=== PATIENT | female | born 1935 | race Caucasian/White ===

== ENCOUNTER 2016-09-03 09:55 | Day surgery (SDC) | payer MEDICARE ==
[~2016-09-03 09:55] MED LIST: PROPOFOL INJ 200 MG/20 ML VIAL IV ONE
[2016-09-03 11:36] VITALS: BP 104/60
--- NOTE | 2016-09-03 12:50 | Operative Report ---
Operative Report DATE OF SURGERY: 09/03/16 Operative Report: The risks, benefits and alternatives of the procedure including risks of bleeding, perforation requiring surgery are explained to the patient detail and informed consent was obtained. Patient was taken back to the endoscopy suite and placed in the left, lateral decubital position. Timeout was called. Propofol medications administered. A rectal examination was done which did not reveal any masses, tears or fissures. An Olympus videoscope was inserted into the patient's rectum. The scope was then carefully advanced all the way to the cecum. The cecum was identified by the usual anatomical landmarks including the ileocecal valve as well as the appendiceal office. Photodocumentation was obtained. The scope was then sequentially pulled back via the rest segments of the colon including the ascending colon, hepatic flexure, transverse colon, splenic flexure, descending colon and finding to the rectosigmoid portions of the colon. Retroflexion maneuver was performed. PREOPERATIVE DIAGNOSIS: Change in bowel habits POSTOPERATIVE DIAGNOSIS: Diverticulosis. Mild right side inflammation status post biopsy. Internal hemorrhoids. No intraluminal lesion, could be extraluminal adhesions. OPERATION: Colonoscopy with biopsy SURGEON: CT BONILLA ANESTHESIA: LMAC TISSUE REMOVED OR ALTERED: Right side colon specimen obtained. Possible lipoma. Biopsies obtained to rule out lymphocytic, microscopic, collagenous colitis. COMPLICATIONS: None. ESTIMATED BLOOD LOSS: None. INTRAOPERATIVE FINDINGS: As described above. PROCEDURE: Patient tolerated the procedure well. No immediate postprocedure complications are noted. Discharge date 09/03/2016. Patient discharged in good condition. Discharge diet: Regular. Discharge activity: Regular. 2-3 week follow-up to discuss findings. Patient is instructed to call the office or proceed to the emergency room should there be any further problems or questions. We will wait on biopsies.
== END 2016-09-03 11:37 | disposition home or self-care (01) ==
LOC: END 09:55
PROVIDERS: ATTEND Internal Medicine Gastroenterology
PROC: 0DBF8ZX Excision of Right Large Intestine, Via Natural or Artificial Opening Endoscopic, Diagnostic (ICD-10-PCS; principal; 2016-09-03 12:30)
DX: K57.30 Diverticulosis of large intestine without perforation or abscess without bleeding (principal); K52.9 Noninfective gastroenteritis and colitis, unspecified; K64.8 Other hemorrhoids; J45.909 Unspecified asthma, uncomplicated; I10 Essential (primary) hypertension; E07.9 Disorder of thyroid, unspecified; Z79.899 Other long term (current) drug therapy; Z79.1 Long term (current) use of non-steroidal anti-inflammatories (NSAID); Z79.51 Long term (current) use of inhaled steroids; Z79.84 Long term (current) use of oral hypoglycemic drugs; Z79.4 Long term (current) use of insulin; Z88.6 Allergy status to analgesic agent; Z88.0 Allergy status to penicillin; Z88.2 Allergy status to sulfonamides
CPT/HCPCS: 45380; 82962; 88305 ×2; J2704; 810

== ENCOUNTER → 2017-01-07 | Outpatient (CLI) | payer MEDICARE ==
--- NOTE | 2017-01-07 11:25 | RADIOLOGY REPORT (SQ) ---
EXAM DESCRIPTION: CT ABD/PELVIS NO ORAL OR IV COMPLETED DATE/TIME: 01/07/2017 11:09 am REASON FOR STUDY: HEMATURIA, UNSPECIFIED/ACUTE RENAL FAILURE R31.9 HEMATURIA, UNSPECIFIED COMPARISON: 10/05/2011 TECHNIQUE: CT scan of the abdomen and pelvis performed without intravenous or oral contrast. Images reviewed with lung, soft tissue, and bone windows. Reconstructed coronal and sagittal MPR images revi ewed. All images stored on PACS. All CT scanners at this facility use dose modulation, iterative reconstruction, and/or weight based d osing when appropriate to reduce radiation dose to as low as reasonably achievable (ALARA). [facility]: Dose Right [facility]: CareDose [facility]: Dose Right [facility]: Teradose 4D [facility]: [employer] RADIATION DOSE: mGy. LIMITATIONS: None. FINDINGS: LOWER CHEST: No acute findings. NON-CONTRASTED LIVER, SPLEEN, ADRENALS: Chronic pneumobilia. PANCREAS: No masses. No peripancreatic inflammatory changes. GALLBLADDER: No identified stones by CT criteria. No inflammatory changes to suggest cholecystitis. RIGHT KIDNEY AND URETER: No suspicious masses. Assessment limited by lack of IV contrast. Small rubén al calculi measuring up to about 2 mm. Vascular calcifications. No hydronephrosis or hydroureter. LEFT KIDNEY AND URETER: No suspicious masses. Assessment limited by lack of IV contrast. Small swapnil l calculi measuring up to about 2 mm. No hydronephrosis or hydroureter. AORTA AND RETROPERITONEUM: No aneurysm. No retroperitoneal masses or adenopathy. BOWEL AND PERITONEAL CAVITY: Diffuse diverticulosis. Anastomosis sigmoid colon. No ascites or free air. No obvious masses or inflammatory changes. No free fluid. APPENDIX: Normal. PELVIS, BLADDER, AND ABDOMINAL WALL:Ace catheter in urinary bladder. Anterior abdominal wall herni a containing nondilated colon. BONES: No acute findings. OTHER: No other significant finding. IMPRESSION: Nonobstructing renal calculi. Stable, chronic findings. COMMENT: Quality ID # [id number]: Final reports with documentation of one or more dose reduction techniques (e.g., Automated exposure control, adjustment of the mA and/or kV according to patient size, use of iterative reconstruction technique) TECHNICAL DOCUMENTATION: JOB ID: [id number] [employer]- All Rights Reserved
== END ==
LOC: RAD 10:54
PROVIDERS: ATTEND Physician Assistant
DX: R31.9 Hematuria, unspecified (principal); N17.9 Acute kidney failure, unspecified
CPT/HCPCS: 74176

== ENCOUNTER → 2017-01-07 | Outpatient (CLI) | payer MEDICARE ==
[2017-01-07 13:07] LABS: ANION GAP 15 (5-19); BLOOD UREA NITROGEN 21 mg/dL (7-20); CALCIUM 9.7 mg/dL (8.4-10.2); CARBON DIOXIDE 23 mmol/L (22-30); CHLORIDE 106 mmol/L (98-107); CREATININE RESULT 1.47 mg/dL (0.52-1.25); GLUCOSE 77 mg/dL (75-110); POTASSIUM 5.7 mmol/L (3.6-5.0); SODIUM 143.6 mmol/L (137-145)
== END ==
LOC: OD 11:46
PROVIDERS: ATTEND Physician Assistant
DX: N17.9 Acute kidney failure, unspecified (principal)
CPT/HCPCS: 36415; 80048

== ENCOUNTER 2017-03-11 11:01 | Inpatient (IN) | payer MEDICARE ==
[~2017-03-11 11:01] MED LIST changes: +CEFTRIAXONE 1 GM/D5W RTU 50 ML IV SCH; -PROPOFOL INJ 200 MG/20 ML VIAL IV ONE
[2017-03-11] MEDS ORDERED: NORMAL SALINE 1000 ML 1,000 ML IV ONE (11:47)
--- NOTE | 2017-03-11 11:47 | ER Document Report ---
ED Medical Screen (RME) - General Chief Complaint: Congestion Stated Complaint: CONGESTION Time Seen by Provider: 03/11/17 11:46 Notes: Patient complains of cough cold congestion dehydration and weakness. TRAVEL OUTSIDE OF THE [place] IN LAST 30 DAYS: No - Related Data Allergies/Adverse Reactions: aspirin [Aspirin] Allergy (Intermediate, Verified 03/11/17 11:01) Facial edema and rash Iodinated Contrast- Oral and IV Dye [IV Dye, Iodine Containing] Allergy (Mild, Verified 03/11/17 11:01) Diarrhea Penicillins Allergy (Mild, Verified 03/11/17 11:01) Diarrhea Shellfish * [Shellfish] Allergy (Mild, Verified 03/11/17 11:01) Diarrhea Beta thaddeus Allergy (Intermediate, Uncoded 03/11/17 11:01) Difficulty breathing Past Medical History - Social History Frequency of alcohol use: None Drug Abuse: None - Past Medical History Cardiac Medical History: Reports: Hx Hypertension Denies: Hx Heart Attack Pulmonary Medical History: Reports: Hx Asthma, Hx COPD Denies: Hx Bronchitis, Hx Pneumonia Neurological Medical History: Denies: Hx Cerebrovascular Accident, Hx Seizures Renal/ Medical History: Denies: Hx Peritoneal Dialysis Musculoskeltal Medical History: Reports Hx Arthritis - GENERALIZED Past Surgical History: Reports: Hx Abdominal Surgery, Hx Hysterectomy, Hx Tonsillectomy, Hx Tubal Ligation - Immunizations Hx Diphtheria, Pertussis, Tetanus Vaccination: Yes Physical Exam - Vital signs Vitals: Temp Pulse Resp BP Pulse Ox 97.2 F 97 16 101/75 95 03/11/17 11:08 03/11/17 11:08 03/11/17 11:08 03/11/17 11:08 03/11/17 11:08 Course - Vital Signs Vital signs: Temp Pulse Resp BP Pulse Ox 97.2 F 97 16 101/75 95 03/11/17 11:08 03/11/17 11:08 03/11/17 11:08 03/11/17 11:08 03/11/17 11:08
[2017-03-11 13:06] LABS: VENOUS BLOOD BASE EXCESS -2.3 mmol/L; VENOUS BLOOD HCO3 24.2 mmol/L (20-32); VENOUS BLOOD PCO2 47.8 mmHg (35-63); VENOUS BLOOD PH 7.32 (7.30-7.42)
[2017-03-11 13:09] LABS: ABSOLUTE BASOPHILS # (AUTO) 0.1 10^3/uL (0.0-0.2); ABSOLUTE EOSINOPHILS # (AUTO) 0.1 10^3/uL (0.0-0.6); ABSOLUTE LYMPHOCYTES (AUTO) 1.8 10^3/uL (0.5-4.7); ABSOLUTE MONOCYTES (AUTO) 0.6 10^3/uL (0.1-1.4); ABSOLUTE NEUT (AUTO) 5.2 10^3/uL (1.7-8.2); BASOPHILS % (AUTO) 0.8 % (0-2); EOSINOPHILS % (AUTO) 0.8 % (0-6); HEMATOCRIT 45.4 % (36.0-47.0); HEMOGLOBIN 14.9 g/dL (12.0-15.5); LYMPHOCYTES % (AUTO) 23.8 % (13-45); MEAN CORPUSCULAR HGB CONC 32.8 g/dL (32.0-36.0); MEAN CORPUSCULAR VOLUME 85 fl (80-97); MONOCYTES % (AUTO) 7.2 % (3-13); PLATELET COUNT 358 10^3/uL (150-450); RED BLOOD COUNT 5.32 10^6/uL (3.72-5.28); RED CELL DISTRIBUTION WIDTH 15.1 % (11.5-14.0); SEGMENTED NEUTROPHILS % (AUTO) 67.4 % (42-78); TOTAL CELLS COUNTED % (AUTO) 100 %; WHITE BLOOD COUNT 7.7 10^3/uL (4.0-10.5)
[2017-03-11 13:14] LABS: APPEARANCE,URINE SLIGHTLY-CLOUDY; BILIRUBIN,URINE SMALL (NEGATIVE); COLOR,URINE YELLOW; GLUCOSE, URINE NEGATIVE (NEGATIVE); KETONES,URINE NEGATIVE (NEGATIVE); LEUKOCYTE ESTERASE,URINE LARGE (NEGATIVE); NITRITE,URINE NEGATIVE (NEGATIVE); PROTEIN,URINE 30 mg/dL (NEGATIVE); URINE SPECIFIC GRAVITY 1.025; UROBILINOGEN,URINE NEGATIVE mg/dL (<2.0)
--- NOTE | 2017-03-11 13:49 | RADIOLOGY REPORT (SQ) ---
EXAM DESCRIPTION: CHEST PA/LAT COMPLETED DATE/TIME: 03/11/2017 1:21 pm REASON FOR STUDY: cough COMPARISON: 05/11/2009 EXAM PARAMETERS: NUMBER OF VIEWS: two views TECHNIQUE: Digital Frontal and Lateral radiographic views of the chest acquired. RADIATION DOSE: NA LIMITATIONS: none FINDINGS: LUNGS AND PLEURA: No opacities, masses or pneumothorax. No pleural effusion. MEDIASTINUM AND HILAR STRUCTURES: No masses or contour abnormalities. HEART AND VASCULAR STRUCTURES: Heart normal size. No evidence for failure. BONES: No acute findings. HARDWARE: None in the chest. OTHER: No other significant finding. IMPRESSION: NO SIGNIFICANT RADIOGRAPHIC FINDING IN THE CHEST. TECHNICAL DOCUMENTATION: JOB ID: [id number] [employer]- All Rights Reserved
[2017-03-11] MEDS ORDERED: IPRATROPIUM/ALBUTEROL 0.5-2.5 MG/3 ML AMPUL NEB ONE (14:31)
[2017-03-11] MEDS ORDERED: METHYLPREDNISOLONE INJ 125 MG/2 ML SDV IV ONE (14:31)
--- NOTE | 2017-03-11 14:34 | ER Document Report ---
ED General - General Chief Complaint: Congestion Stated Complaint: CONGESTION Time Seen by Provider: 03/11/17 11:46 Mode of Arrival: Ambulatory Information source: Patient Notes: 82-year-old female presents with complaints of shortness of breath generalized weakness cough intermittently productive of 4 day duration. Patient notes she has not been eating at all. She states she feels extremely dehydrated and weak. Patient notes it hurts when she coughs on her chest and her back but otherwise does not hurt TRAVEL OUTSIDE OF THE [place] IN LAST 30 DAYS: No - HPI Onset: Last week Onset/Duration: Persistent Quality of pain: Achy Severity: Mild Pain Level: 1 Associated symptoms: Body/muscle aches, Nonproductive cough, Shortness of breath Exacerbated by: Denies Relieved by: Denies Similar symptoms previously: No Recently seen / treated by doctor: No - Related Data Allergies/Adverse Reactions: aspirin [Aspirin] Allergy (Intermediate, Verified 03/11/17 11:01) Facial edema and rash Iodinated Contrast- Oral and IV Dye [IV Dye, Iodine Containing] Allergy (Mild, Verified 03/11/17 11:01) Diarrhea Penicillins Allergy (Mild, Verified 03/11/17 11:01) Diarrhea Shellfish * [Shellfish] Allergy (Mild, Verified 03/11/17 11:01) Diarrhea Beta thaddeus Allergy (Intermediate, Uncoded 03/11/17 11:01) Difficulty breathing Past Medical History - Social History Smoking Status: Former Smoker - Smoking 30 years ago Cigarette use (# per day): No Chew tobacco use (# tins/day): No Smoking Education Provided: No Frequency of alcohol use: None Drug Abuse: None Family History: Reviewed & Not Pertinent Patient has suicidal ideation: No Patient has homicidal ideation: No - Past Medical History Cardiac Medical History: Reports: Hx Hypertension Denies: Hx Heart Attack Pulmonary Medical History: Reports: Hx Asthma, Hx COPD Denies: Hx Bronchitis, Hx Pneumonia Neurological Medical History: Denies: Hx Cerebrovascular Accident, Hx Seizures Renal/ Medical History: Denies: Hx Peritoneal Dialysis Musculoskeltal Medical History: Reports Hx Arthritis - GENERALIZED Past Surgical History: Reports: Hx Abdominal Surgery, Hx Hysterectomy, Hx Tonsillectomy, Hx Tubal Ligation - Immunizations Hx Diphtheria, Pertussis, Tetanus Vaccination: Yes Review of Systems - Review of Systems Notes: REVIEW OF SYSTEMS: CONSTITUTIONAL : Denies fever, chills, or sweats. Denies recent illness. EENT: Denies eye, ear, throat, or mouth pain or symptoms. Denies nasal or sinus congestion or discharge. Denies throat, tongue, or mouth swelling or difficulty swallowing. CARDIOVASCULAR: Admits chest wall pain RESPIRATORY: Admits to cough GASTROINTESTINAL: Denies abdominal pain or distention. Denies nausea, vomiting , or diarrhea. Denies blood in vomitus, stools, or per rectum. Denies black, tarry stools. Denies constipation. GENITOURINARY: Denies difficulty urinating, painful urination, burning, frequency, blood in urine, or discharge. FEMALE GENITOURINARY: Denies vaginal bleeding, heavy or abnormal periods, irregular periods. Denies vaginal discharge or odor. MUSCULOSKELETAL: Denies back or neck pain or stiffness. Denies joint pain or swelling. SKIN: Denies rash, lesions or sores. HEMATOLOGIC : Denies easy bruising or bleeding. LYMPHATIC: Denies swollen, enlarged glands. NEUROLOGICAL: Denies confusion or altered mental status. Denies passing out or loss of consciousness. Denies dizziness or lightheadedness. Denies headache. Denies weakness or paralysis or loss of use of either side. Denies problems with gait or speech. Denies sensory loss, numbness, or tingling. Denies seizures. PSYCHIATRIC: Denies anxiety or stress. Denies depression, suicidal ideation, or homicidal ideation. ALL OTHER SYSTEMS REVIEWED AND NEGATIVE. PHYSICAL EXAMINATION: GENERAL: Well-appearing, well-nourished and in no acute distress. HEAD: Atraumatic, normocephalic. EYES: Pupils equal round and reactive to light, extraocular movements intact, conjunctiva are normal. ENT: Nares patent, oropharynx clear without exudates. Moist mucous membranes. NECK: Normal range of motion, supple without lymphadenopathy LUNGS: Breath sounds clear to auscultation bilaterally and equal. No wheezes rales or rhonchi. HEART: Regular rate and rhythm without murmurs ABDOMEN: Soft, nontender, nondistended abdomen. No guarding, no rebound. No masses appreciated. Female : deferred Musculoskeletal: Normal range of motion, no pitting or edema. No cyanosis. NEUROLOGICAL: Cranial nerves grossly intact. Normal speech, normal gait. Normal sensory, motor exams PSYCH: Normal mood, normal affect. SKIN: Warm, Dry, normal turgor, no rashes or lesions noted. Dictation was performed using [employer] voice recognition software Physical Exam - Vital signs Vitals: Temp Pulse Resp BP Pulse Ox 97.2 F 97 16 101/75 95 03/11/17 11:08 03/11/17 11:08 03/11/17 11:08 03/11/17 11:08 03/11/17 11:08 Course - Re-evaluation Re-evalutation: 03/11/17 18:42 Patient's evaluation is concerning for asthma exacerbation with some type of viral syndrome, unfortunately the patient has not been eating or drinking well and appears to be dehydrated, creatinine is noted to be elevated, patient was started on IV fluids. Given her dehydration status I will admit the patient for IV fluids - Vital Signs Vital signs: Temp Pulse Resp BP Pulse Ox 97.2 F 97 16 101/75 95 03/11/17 11:08 03/11/17 11:08 03/11/17 11:08 03/11/17 11:08 03/11/17 11:08 - Laboratory Result Diagrams: 03/11/17 12:30 03/11/17 14:32 Laboratory results interpreted by me: 03/11/17 03/11/17 03/11/17 12:30 12:30 14:32 RBC 5.32 H RDW 15.1 H Carbon Dioxide 19 L BUN 45 H Creatinine 2.36 H Est GFR ( Amer) 24 L Est GFR (Non-Af Amer) 20 L Glucose 128 H Direct Bilirubin 0.5 H AST 38 H Urine Protein 30 H Urine Bilirubin SMALL H Ur Leukocyte Esterase LARGE H - Diagnostic Test Radiology reviewed: Image reviewed, Reports reviewed Critical Care Note - Critical Care Note Total time excluding time spent on procedures (mins): 34 Comments: 34 minutes of critical care time spent in direct contact evaluating and reevaluating the patient, treating symptoms, reviewing labs and studies and speaking with family and consultants excluding any procedures Discharge - Discharge Clinical Impression: Dehydration Asthma exacerbation Qualifiers: Asthma severity: moderate Asthma persistence: unspecified Qualified Code(s): J45.901 - Unspecified asthma with (acute) exacerbation UTI (urinary tract infection) Qualifiers: Urinary tract infection type: acute cystitis Hematuria presence: with hematuria Qualified Code(s): N30.01 - Acute cystitis with hematuria Condition: Stable Disposition: ADMITTED OBSERVATION Admitting Provider: Hospitalist Unit Admitted: Telemetry
[2017-03-11] MEDS ORDERED: HYDROCODONE BIT/HOMATROPINE SYRUP 5 ML UDCUP PO ONE (14:35)
[2017-03-11 15:10] LABS: ALANINE AMINOTRANSFERASE 29 U/L (9-52); ALBUMIN 4.6 g/dL (3.5-5.0); ALKALINE PHOSPHATASE 70 U/L (38-126); ANION GAP 17 (5-19); ASPARTATE AMINO TRANSFERASE 38 U/L (14-36); BILIRUBIN,DIRECT 0.5 mg/dL (0.0-0.4); BILIRUBIN,TOTAL 0.7 mg/dL (0.2-1.3); BLOOD UREA NITROGEN 45 mg/dL (7-20); CALCIUM 9.2 mg/dL (8.4-10.2); CARBON DIOXIDE 19 mmol/L (22-30); CHLORIDE 104 mmol/L (98-107); GLUCOSE 128 mg/dL (75-110); POTASSIUM 4.9 mmol/L (3.6-5.0); SODIUM 139.9 mmol/L (137-145); TOTAL PROTEIN 7.9 g/dL (6.3-8.2)
[2017-03-11] MEDS ORDERED: HYDROCODONE BIT/HOMATROPINE 5-1.5 MG TABLET PO ONE (15:17)
[2017-03-11 15:22] LABS: A TYPE INFLUENZA AG NEGATIVE (NEGATIVE); B INFLUENZA AG NEGATIVE (NEGATIVE)
[2017-03-11] MEDS ORDERED: NORMAL SALINE 1000 ML 1,000 ML IV PRN (15:23)
[2017-03-11] MEDS ORDERED: CIPROFLOXACIN 200 MG/D5W RTU 200 MG/100 ML RTUPB IV SCH (16:00)
[2017-03-11] MEDS ORDERED: ACETAMINOPHEN 325 MG TABLET PO PRN (18:14)
[2017-03-11] MEDS ORDERED: DEXTROSE 50%-WATER 25 GM/50 ML DISP.SYRIN IV PRN ×2 (18:21)
[2017-03-11] MEDS ORDERED: GLUCAGON,HUMAN RECOMB 1 MG INJ IM PRN (18:21)
[2017-03-11] MEDS ORDERED: DEXTROSE 40% GEL 15 GM TUBE PO PRN ×2 (18:21)
[2017-03-11] MEDS ORDERED: INSULIN LISPRO 100 UNIT/ML 3 ML VIAL SUBCUT PRN (18:21)
[2017-03-11] MEDS ORDERED: HYDRALAZINE HCL INJ/PF 20 MG/1 ML SDV IV PRN (18:35)
--- NOTE | 2017-03-11 18:35 | EKG REPORT ---
SEVERITY:- BORDERLINE ECG - SINUS RHYTHM PROBABLE LEFT ATRIAL ABNORMALITY : Confirmed by: Kendra Bear 11-Mar-2017 18:34:29
--- NOTE | 2017-03-11 18:38 | PDOC H&P ---
History of Present Illness Admission Date/PCP: 03/11/17 16:48 biometrics head: Dr Proctor History of Present Illness: URMILA GALEANO is a 82 year old female Past Medical History Cardiac Medical History: Reports: Hypertension Denies: Myocardial Infarction Pulmonary Medical History: Reports: Asthma, Chronic Obstructive Pulmonary Disease (COPD) Denies: Bronchitis, Pneumonia Neurological Medical History: Denies: Seizures Endocrine Medical History: Reports: Diabetes Mellitus Type 2, Hypothyroidism Malignancy Medical History: Reports: None Musculoskeltal Medical History: Reports: Arthritis - GENERALIZED Psychiatric Medical History: Reports: None Traumatic Medical History: Reports: None Hematology: Denies: Anemia Past Surgical History Past Surgical History: Reports: Appendectomy, Hysterectomy, Tonsillectomy, Tubal Ligation, Other - sigmoid colectomy Social History Information Source: Patient Smoking Status: Former Smoker Frequency of Alcohol Use: None Hx Recreational Drug Use: No Drugs: None Hx Prescription Drug Abuse: No Family History Family History: Reviewed & Not Pertinent Parental Family History Reviewed: Yes Children Family History Reviewed: Yes Sibling(s) Family History Reviewed.: Yes Medication/Allergy Allergies/Adverse Reactions: aspirin [Aspirin] Allergy (Intermediate, Verified 03/11/17 11:01) Facial edema and rash Iodinated Contrast- Oral and IV Dye [IV Dye, Iodine Containing] Allergy (Mild, Verified 03/11/17 11:01) Diarrhea Penicillins Allergy (Mild, Verified 03/11/17 11:01) Diarrhea Shellfish * [Shellfish] Allergy (Mild, Verified 03/11/17 11:01) Diarrhea Beta thaddeus Allergy (Intermediate, Uncoded 03/11/17 11:01) Difficulty breathing Review of Systems Constitutional: PRESENT: anorexia, weakness Eyes: ABSENT: visual disturbances Ears: ABSENT: hearing changes Nose, Mouth, and Throat: PRESENT: headache(s), sore throat Cardiovascular: ABSENT: chest pain, dyspnea on exertion, orthropnea, palpitations Respiratory: PRESENT: cough, dyspnea. ABSENT: sputum Gastrointestinal: ABSENT: abdominal pain, constipation, nausea, vomiting Genitourinary: PRESENT: dysuria. ABSENT: difficulty urinating, hematuria Musculoskeletal: ABSENT: back pain Integumentary: ABSENT: diaphoresis, lesions, pruritus, rash Neurological: ABSENT: abnormal gait, abnormal speech, confusion Psychiatric: ABSENT: anxiety, depression, homidical ideation, suicidal ideation Endocrine: ABSENT: cold intolerance, heat intolerance, polyphagia, polyuria Hematologic/Lymphatic: ABSENT: easy bleeding, easy bruising, lymphadenopathy Allergic/Immunologic: PRESENT: seasonal rhinorrhea Physical Exam Vital Signs: Temp Pulse Resp BP Pulse Ox 97.2 F 97 16 101/75 95 03/11/17 11:08 03/11/17 11:08 03/11/17 11:08 03/11/17 11:08 03/11/17 11:08 General appearance: PRESENT: no acute distress, well-developed, well-nourished Head exam: PRESENT: atraumatic, normocephalic Eye exam: PRESENT: conjunctiva pink, EOMI, PERRLA. ABSENT: scleral icterus Ear exam: PRESENT: normal external ear exam Mouth exam: PRESENT: moist, tongue midline Throat exam: PRESENT: post pharyngeal erythema. ABSENT: tonsillar erythema, tonsillar exudate Neck exam: ABSENT: carotid bruit, JVD, lymphadenopathy, thyromegaly Respiratory exam: PRESENT: wheezes - Mild wheezing throughout all lung [place] Cardiovascular exam: PRESENT: RRR. ABSENT: diastolic murmur, rubs, systolic murmur Pulses: PRESENT: normal dorsalis pedis pul GI/Abdominal exam: PRESENT: normal bowel sounds, soft. ABSENT: distended, guarding, mass, organolmegaly, rebound, tenderness Rectal exam: PRESENT: deferred Extremities exam: PRESENT: full ROM. ABSENT: calf tenderness, clubbing, pedal edema Neurological exam: PRESENT: alert, awake, oriented to person, oriented to place , oriented to time, oriented to situation, CN II-XII grossly intact. ABSENT: motor sensory deficit Psychiatric exam: PRESENT: appropriate affect, normal mood. ABSENT: homicidal ideation, suicidal ideation Skin exam: PRESENT: dry, intact, warm. ABSENT: cyanosis, rash Results Impressions: Chest X-Ray 03/11/17 11:47 IMPRESSION: NO SIGNIFICANT RADIOGRAPHIC FINDING IN THE CHEST. Assessment & Plan - Diagnosis (1) Acute renal failure Plan: Secondary to dehydration and poor p.o. intake. The patient will continue normal saline tonight. She will have a chemistry panel checked in the morning. Her baseline creatinine per last time she was checked at this facility in December was 1.4. Currently 2.36 (2) UTI (urinary tract infection) Is this a current diagnosis for this admission?: Yes Plan: Urine culture is pending. She has been started on IV ceftriaxone. (3) Asthma exacerbation Is this a current diagnosis for this admission?: Yes Plan: The patient has improved with breathing treatments in the emergency room. She is not requiring oxygen supplementation. Will place the patient on p.o. prednisone and breathing treatments. She will be started on IV Rocephin and Zithromax as she states she has had a cough and has felt sick for the past 2 weeks. (4) Diabetes mellitus Is this a current diagnosis for this admission?: Yes Plan: Was radiculitis she will be covered with sliding scale insulin during this hospitalization (5) Metabolic acidosis Is this a current diagnosis for this admission?: Yes Plan: Likely due to urinary tract infection. She will have a chemistry panel drawn in the morning. This is quite mild (6) Hypertension Plan: She gave her list of medications to the nurse who is not placed in the computer yet. At this point she does not require any blood pressure medication as her blood pressure is on the low side. Her medications will need to be reconciled in the morning. She will have IV hydralazine available in the event that she develops severe hypertension. (7) Hyperlipidemia Is this a current diagnosis for this admission?: Yes Plan: Her medications will need to be reconciled in the morning. (8) Hypothyroidism Is this a current diagnosis for this admission?: Yes Plan: As above - Time Time Spent: 50 to 70 Minutes - Inpatient Certification Medical Necessity: Need For IV Fluids, Need for IV Antibiotics - The patient will be placed in observation in the hospital. I believe her kidney function could possibly recover after receiving IV fluids overnight. She currently is not hypoxic and likely could be discharged home on oral therapies for her COPD exacerbation and urinary tract infection. She will need to be reevaluated in the morning and certainly could be changed to a full admission if anything changes.
[2017-03-11] MEDS: IPRATROPIUM/ALBUTEROL 0.5-2.5 MG/3 ML AMPUL NEB SCH (20:59)
[2017-03-11] MEDS: CEFTRIAXONE SODIUM 1,000 MG in DEXTROSE 5%-WATER 50 ML IV SCH (23:30)
[2017-03-11] MEDS ORDERED: CEFTRIAXONE INJ 1000 MG VIAL ONE (23:32)
[2017-03-11] MEDS: GUAIFENESIN 600 MG TABLET.SA PO SCH (23:49)
[2017-03-11] MEDS: NORMAL SALINE 1000 ML 1,000 ML IV PRN (23:49)
[2017-03-12 04:43] LABS: HEMATOCRIT 33.5 % (36.0-47.0); MEAN CORPUSCULAR HEMOGLOBIN 27.9 pg (27.0-33.4); MEAN CORPUSCULAR HGB CONC 33.2 g/dL (32.0-36.0); MEAN CORPUSCULAR VOLUME 84 fl (80-97); PLATELET COUNT 247 10^3/uL (150-450); RED BLOOD COUNT 3.98 10^6/uL (3.72-5.28); RED CELL DISTRIBUTION WIDTH 14.6 % (11.5-14.0); WHITE BLOOD COUNT 13.2 10^3/uL (4.0-10.5)
[2017-03-12 05:00] LABS: ANION GAP 11 (5-19); BLOOD UREA NITROGEN 32 mg/dL (7-20); CALCIUM 8.5 mg/dL (8.4-10.2); CARBON DIOXIDE 20 mmol/L (22-30); CHLORIDE 108 mmol/L (98-107); GLUCOSE 131 mg/dL (75-110); HEMOGLOBIN 11.1 g/dL (12.0-15.5); PHOSPHORUS 3.1 mg/dL (2.5-4.5); POTASSIUM 5.1 mmol/L (3.6-5.0); SODIUM 138.9 mmol/L (137-145)
[2017-03-12] MEDS: IPRATROPIUM/ALBUTEROL 0.5-2.5 MG/3 ML AMPUL NEB SCH ×3 (08:23→20:17)
[2017-03-12] MEDS ORDERED: BENZONATATE 100 MG CAPSULE PO PRN (11:02)
[2017-03-12] MEDS ORDERED: PROMETHAZINE HCL 25 MG TABLET PO PRN (11:03)
[2017-03-12] MEDS: LACTOBACILLUS ACIDOPHILUS 250 MG TAB PO SCH ×2 (11:39→18:27)
[2017-03-12] MEDS: GUAIFENESIN 600 MG TABLET.SA PO SCH ×2 (11:39→21:28)
[2017-03-12] MEDS: PREDNISONE 20 MG TABLET PO SCH (11:40)
[2017-03-12] MEDS: ENOXAPARIN SODIUM INJ 30 MG/0.3 ML DISP.SYRIN SUBCUT SCH (11:41)
[2017-03-12] MEDS: NORMAL SALINE 1000 ML 1,000 ML IV PRN (11:42)
[2017-03-12] MEDS: ACETAMINOPHEN WITH CODEINE #3 TABLET PO PRN (12:20)
--- NOTE | 2017-03-12 13:55 | PDOC PROGRESS REPORT ---
Subjective Progress Note for:: 03/12/17 Subjective:: Patient reports feeling better but still having chest congestion and cough. Patient refers that feels like she is having a pneumonia Review of systems All organ systems evaluated and negative except as in subjective All laboratories and significant diagnostics have been reviewed Reason For Visit: ASTHMA EXACERBATION,ACUTE KIDNEY INJURY Physical Exam Vital Signs: Temp Pulse Resp BP Pulse Ox 97.2 F 110 H 20 101/75 91 L 03/11/17 11:08 03/11/17 21:00 03/11/17 21:00 03/11/17 11:08 03/11/17 21:00 General appearance: PRESENT: no acute distress, cooperative, obese - Emergency Head exam: PRESENT: atraumatic, normocephalic Eye exam: PRESENT: conjunctiva pink, EOMI, PERRLA Ear exam: PRESENT: normal external ear exam Mouth exam: PRESENT: moist - But they do not, neck supple Neck exam: PRESENT: full ROM. ABSENT: JVD Respiratory exam: PRESENT: crackles - Left lower lobe, unlabored. ABSENT: tachypnea Cardiovascular exam: PRESENT: RRR. ABSENT: diastolic murmur, systolic murmur Vascular exam: PRESENT: normal capillary refill GI/Abdominal exam: PRESENT: normal bowel sounds, soft. ABSENT: guarding, tenderness Extremities exam: PRESENT: full ROM. ABSENT: joint swelling, pedal edema Musculoskeletal exam: PRESENT: full ROM Neurological exam: PRESENT: alert, awake, oriented to person, oriented to place , oriented to time, CN II-XII grossly intact Psychiatric exam: PRESENT: appropriate affect, normal mood Skin exam: PRESENT: intact, normal color Results Laboratory Results: 03/12/17 04:30 03/12/17 04:30 03/12/17 03/12/17 04:30 04:30 WBC 13.2 H RBC 3.98 Hgb 11.1 L D Hct 33.5 L MCV 84 MCH 27.9 MCHC 33.2 RDW 14.6 H Plt Count 247 Sodium 138.9 Potassium 5.1 H Chloride 108 H Carbon Dioxide 20 L Anion Gap 11 BUN 32 H Creatinine 1.61 H Est GFR ( Amer) 37 L Est GFR (Non-Af Amer) 31 L Glucose 131 H Calcium 8.5 Phosphorus 3.1 Magnesium 2.0 Impressions: Chest X-Ray 03/11/17 11:47 IMPRESSION: NO SIGNIFICANT RADIOGRAPHIC FINDING IN THE CHEST. Assessment & Plan - Diagnosis (1) Acute renal failure Qualifiers: Acute renal failure type: unspecified Qualified Code(s): N17.9 - Acute kidney failure, unspecified Is this a current diagnosis for this admission?: Yes Plan: Likely due to volume contrast contraction. Continue IV fluids and trend. Improved since admission (2) Asthma exacerbation Qualifiers: Asthma severity: moderate Asthma persistence: unspecified Qualified Code( s): J45.901 - Unspecified asthma with (acute) exacerbation Is this a current diagnosis for this admission?: Yes Plan: Continue current management and antitussive. To repeat chest x-ray since concern about the possibility of pneumonia (4) Diabetes mellitus Qualifiers: Diabetes mellitus type: type 2 Diabetes mellitus complication status: with unspecified complications Diabetes mellitus terminal system operator insulin use: without terminal system operator use Qualified Code(s): E11.8 - Type 2 diabetes mellitus with unspecified complications Is this a current diagnosis for this admission?: Yes Plan: Continue current management (5) Metabolic acidosis Is this a current diagnosis for this admission?: Yes (6) UTI (urinary tract infection) Qualifiers: Urinary tract infection type: acute cystitis Hematuria presence: with hematuria Qualified Code(s): N30.01 - Acute cystitis with hematuria Is this a current diagnosis for this admission?: Yes Plan: Will continue current management but expect to discontinue if urine culture negative (7) Hyperkalemia Is this a current diagnosis for this admission?: Yes Plan: May relate to traumatic blood draw. Will trend for now. (8) Anemia Qualifiers: Anemia type: unspecified type Qualified Code(s): D64.9 - Anemia, unspecified Is this a current diagnosis for this admission?: Yes Plan: Order anemia panel. - Time Time Spent with patient: 15-24 minutes Medications reviewed and adjusted accordingly: Yes Anticipated discharge: Home Within: within 48 hours - Inpatient Certification Based on my medical assessment, after consideration of the patient's comorbidities, presenting symptoms, or acuity I expect that the services needed warrant INPATIENT care.: Yes I certify that my determination is in accordance with my understanding of Medicare's requirements for reasonable and necessary INPATIENT services [42 CFR 412.3e].: Yes Medical Necessity: Need Close Monitoring Due to Risk of Patient Decompensation, Need For IV Fluids, Need for IV Antibiotics
--- NOTE | 2017-03-12 15:39 | RADIOLOGY REPORT (SQ) ---
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 Images reviewed with lung, soft tissue and bone windows. Reconstructed coronal and sagittal MPR images reviewed. All images st ored on PACS. All CT scanners at this facility use dose modulation, iterative reconstruction, and/or weight based d osing when appropriate to reduce radiation dose to as low as reasonably achievable (ALARA). [facility]: Dose Right [facility]: CareDose [facility]: Dose Right [facility]: Teradose 4D [facility]: [employer] RADIATION DOSE: CT Rad equipment meets quality standard of care and radiation dose reduction techniq ues were employed. CTDIvol: 7.7 mGy. DLP: 285 mGy-cm. mGy. LIMITATIONS: No technical limitations. FINDINGS: LUNGS AND PLEURA: There is minimal airspace disease in the posterior aspect of the right m iddle lobe best shown on coronal image 52. There is minimal airspace disease in the right posterior lower lobe, best shown on coronal image 79. There is trace airspace disease the left posterior costophrenic sulcus. No pulmonary nodules. No pleural effusion. No pneumothorax. HILAR AND MEDIASTINAL STRUCTURES: No identified masses or abnormal nodes. No obvious aneurysm. HEART AND VASCULAR STRUCTURES: No aneurysm. No pericardial effusion. Heavy atherosclerotic coronary artery calcifications. Heavily calcified aortic valve leaflets. UPPER ABDOMEN: Air in the nondependent portion of the left lobe liver from sphincterotomy. THYROID AND OTHER SOFT TISSUES: No masses. No adenopathy. BONES: No significant finding. HARDWARE: None in the chest. OTHER: No other significant findings. IMPRESSION: Minimal patchy airspace disease in the posterior aspect right middle lobe, and dependent portions of the right and left lungs. Differential is atelectasis versus pneumonia Heavily calcified aortic valve and coronary artery calcifications. TECHNICAL DOCUMENTATION: JOB ID: [id number] Quality ID # [id number]: Final reports with documentation of one or more dose reduction techniques (e.g., Au tomated exposure control, adjustment of the mA and/or kV according to patient size, use of iterative reconstruction technique) 2010 [employer]- All Rights Reserved
[2017-03-12] MEDS: CEFTRIAXONE SODIUM 1,000 MG in DEXTROSE 5%-WATER 50 ML IV SCH (21:30)
[2017-03-12] MEDS: TEMAZEPAM 7.5 MG CAPSULE PO PRN (21:33)
[2017-03-12] MEDS ORDERED: AZITHROMYCIN 500 MG in DEXTROSE 5%-WATER 250 ML IV SCH (22:00)
[2017-03-13 05:32] LABS: ABSOLUTE RETICS # 0.037 10^6/uL (0.028-0.122); RETICULOCYTE COUNT (AUTO) 1.01 % (0.66-2.85)
[2017-03-13 05:58] LABS: IRON(TIBC) 15.2 ug/dL (37-170)
[2017-03-13 07:05] LABS: FOLATE 5.94 ng/mL (>2.76)
[2017-03-13] MEDS: IPRATROPIUM/ALBUTEROL 0.5-2.5 MG/3 ML AMPUL NEB SCH ×2 (08:53→13:56)
[2017-03-13] MEDS: ENOXAPARIN SODIUM INJ 30 MG/0.3 ML DISP.SYRIN SUBCUT SCH (09:12)
[2017-03-13] MEDS: GUAIFENESIN 600 MG TABLET.SA PO SCH ×2 (09:15→21:14)
[2017-03-13] MEDS: PREDNISONE 20 MG TABLET PO SCH ×2 (09:15→09:44)
[2017-03-13] MEDS: LACTOBACILLUS ACIDOPHILUS 250 MG TAB PO SCH ×2 (09:15→16:41)
[2017-03-13] MEDS: GLIPIZIDE 5 MG TABLET PO SCH (09:15)
[2017-03-13] MEDS: AZITHROMYCIN 250 MG TABLET PO SCH (10:06)
[2017-03-13] MEDS: ACETAMINOPHEN WITH CODEINE #3 TABLET PO PRN ×3 (10:06→21:14)
[2017-03-13] MEDS: NORMAL SALINE 1000 ML 1,000 ML IV PRN (10:06)
--- NOTE | 2017-03-13 16:28 | PDOC PROGRESS REPORT ---
Subjective Progress Note for:: 03/13/17 Subjective:: Patient reports that feels like was run over a truck however feels better Review of systems All organ systems evaluated and negative except as in subjective All laboratories and significant diagnostics have been reviewed Reason For Visit: ASTHMA EXACERBATION CONNIE Physical Exam Vital Signs: Temp Pulse Resp BP Pulse Ox 97.6 F 92 16 110/64 93 03/12/17 23:33 03/12/17 23:33 03/12/17 23:33 03/12/17 23:33 03/12/17 23:33 Intake & Output 03/12/17 03/13/17 03/14/17 06:59 06:59 06:59 Intake Total 240 Balance 240 Weight 77.3 kg General appearance: PRESENT: no acute distress, cooperative, well-developed, well-nourished Head exam: PRESENT: atraumatic, normocephalic Eye exam: PRESENT: conjunctiva pink, EOMI, PERRLA Mouth exam: PRESENT: moist, neck supple Neck exam: PRESENT: full ROM. ABSENT: JVD, lymphadenopathy, tenderness - Soft left-sided crackles Respiratory exam: ABSENT: chest wall tenderness Cardiovascular exam: PRESENT: RRR. ABSENT: diastolic murmur, systolic murmur Vascular exam: PRESENT: normal capillary refill GI/Abdominal exam: PRESENT: normal bowel sounds, soft. ABSENT: tenderness Extremities exam: ABSENT: clubbing, full ROM, joint swelling, pedal edema Musculoskeletal exam: PRESENT: ambulatory Neurological exam: PRESENT: alert, oriented to person, oriented to place, oriented to time, oriented to situation, CN II-XII grossly intact Psychiatric exam: PRESENT: appropriate affect, normal mood Skin exam: PRESENT: intact, normal color Results Laboratory Results: 03/12/17 04:30 03/12/17 04:30 03/13/17 03/13/17 04:48 04:48 Retic Count (auto) 1.01 Absolute Retic 0.037 Iron 15.2 L TIBC 323 % Saturation 5 Ferritin 71.30 Vitamin B12 298.0 Folate 5.94 Impressions: Chest X-Ray 03/11/17 11:47 IMPRESSION: NO SIGNIFICANT RADIOGRAPHIC FINDING IN THE CHEST. Chest CT 03/12/17 00:00 IMPRESSION: Minimal patchy airspace disease in the posterior aspect right middle lobe, and dependent portions of the right and left lungs. Differential is atelectasis versus pneumonia Heavily calcified aortic valve and coronary artery calcifications. Assessment & Plan - Diagnosis (1) Acute renal failure Qualifiers: Acute renal failure type: unspecified Qualified Code(s): N17.9 - Acute kidney failure, unspecified Is this a current diagnosis for this admission?: Yes Plan: Likely due to volume contrast contraction. Discontinue IV fluids and trend (2) Asthma exacerbation Qualifiers: Asthma severity: moderate Asthma persistence: unspecified Qualified Code( s): J45.901 - Unspecified asthma with (acute) exacerbation Is this a current diagnosis for this admission?: Yes Plan: Improved. Discontinue prednisone. To place patient on Advair (3) Dehydration Is this a current diagnosis for this admission?: Yes Plan: Improved (4) Diabetes mellitus Qualifiers: Diabetes mellitus type: type 2 Diabetes mellitus complication status: with unspecified complications Diabetes mellitus medical terminologist insulin use: without medical terminologist use Qualified Code(s): E11.8 - Type 2 diabetes mellitus with unspecified complications Is this a current diagnosis for this admission?: Yes Plan: Continue current management. Patient requested to be restarted on her outpatient regimen (5) Metabolic acidosis Is this a current diagnosis for this admission?: Yes Plan: Will follow-up BMP in a.m. (6) UTI (urinary tract infection) Qualifiers: Urinary tract infection type: acute cystitis Hematuria presence: with hematuria Qualified Code(s): N30.01 - Acute cystitis with hematuria Is this a current diagnosis for this admission?: Yes Plan: Sofar culture preliminary report is negative and will discontinue Rocephin since presentation less likely to be due to urinary tract infection (7) Hyperkalemia Is this a current diagnosis for this admission?: Yes Plan: Will check BMP in AM (8) Anemia Qualifiers: Anemia type: unspecified type Qualified Code(s): D64.9 - Anemia, unspecified Is this a current diagnosis for this admission?: Yes Plan: More consistent with anemia of chronic disease - Time Time Spent with patient: 15-24 minutes Medications reviewed and adjusted accordingly: Yes Anticipated discharge: Home Within: within 24 hours - Inpatient Certification Based on my medical assessment, after consideration of the patient's comorbidities, presenting symptoms, or acuity I expect that the services needed warrant INPATIENT care.: Yes I certify that my determination is in accordance with my understanding of Medicare's requirements for reasonable and necessary INPATIENT services [42 CFR 412.3e].: Yes Medical Necessity: Need Close Monitoring Due to Risk of Patient Decompensation
[2017-03-13] MEDS: FLUTICASONE/SALMETEROL DISKUS 250-50 MCG/DOSE IH SCH (21:15)
[2017-03-13] MEDS: TEMAZEPAM 7.5 MG CAPSULE PO PRN (21:15)
[2017-03-14 05:24] LABS: HEMOGLOBIN 10.1 g/dL (12.0-15.5); MEAN CORPUSCULAR HEMOGLOBIN 28.1 pg (27.0-33.4); MEAN CORPUSCULAR HGB CONC 32.7 g/dL (32.0-36.0); MEAN CORPUSCULAR VOLUME 86 fl (80-97); PLATELET COUNT 284 10^3/uL (150-450); RED CELL DISTRIBUTION WIDTH 14.3 % (11.5-14.0); WHITE BLOOD COUNT 9.3 10^3/uL (4.0-10.5)
[2017-03-14 05:54] LABS: ABSOLUTE LYMPHOCYTES# (MANUAL) 3.3 10^3/uL (0.5-4.7); ABSOLUTE MONOCYTES # (MANUAL) 0.5 10^3/uL (0.1-1.4); ABSOLUTE NEUTROPHILS# (MANUAL) 5.6 10^3/uL (1.7-8.2); BASOPHILS % (MANUAL) 0 % (0-2); EOSINOPHILS % (MANUAL) 0 % (0-6); LYMPHOCYTES % (MANUAL) 35 % (13-45); MONOCYTES % (MANUAL) 5 % (3-13); SEGMENTED NEUTROPHILS % (MAN) 60 % (42-78); TOTAL CELLS COUNTED 100
[2017-03-14 05:55] LABS: PLATELET COMMENT ADEQUATE; RBC MORPHOLOGY COMMENT NORMO-CYTIC/CHROMIC
[2017-03-14 05:56] LABS: ANION GAP 13 (5-19); BLOOD UREA NITROGEN 20 mg/dL (7-20); CALCIUM 9.2 mg/dL (8.4-10.2); CARBON DIOXIDE 19 mmol/L (22-30); CHLORIDE 111 mmol/L (98-107); GLUCOSE 134 mg/dL (75-110); POTASSIUM 4.8 mmol/L (3.6-5.0)
[2017-03-14] MEDS: GLIPIZIDE 5 MG TABLET PO SCH (09:23)
[2017-03-14] MEDS: LACTOBACILLUS ACIDOPHILUS 250 MG TAB PO SCH ×2 (09:24→19:02)
[2017-03-14] MEDS: AZITHROMYCIN 250 MG TABLET PO SCH (09:24)
[2017-03-14] MEDS: PREDNISONE 20 MG TABLET PO SCH (09:24)
[2017-03-14] MEDS: ENOXAPARIN SODIUM INJ 30 MG/0.3 ML DISP.SYRIN SUBCUT SCH (09:25)
[2017-03-14] MEDS: FLUTICASONE/SALMETEROL DISKUS 250-50 MCG/DOSE IH SCH ×2 (09:25→21:52)
[2017-03-14] MEDS: GUAIFENESIN 600 MG TABLET.SA PO SCH ×2 (09:25→21:52)
[2017-03-14] MEDS ORDERED: HYDROCODONE BIT/HOMATROPINE 5-1.5 MG TABLET PO ONE (11:00)
[2017-03-14] MEDS ORDERED: OXYMETAZOLINE HCL 0.05% NASAL SPRAY 15 ML BOTTLE NASL ONE (11:30)
--- NOTE | 2017-03-14 13:43 | PDOC PROGRESS REPORT ---
Subjective Progress Note for:: 03/14/17 Subjective:: Patient complains of dry cough and having pain to her side because of her coughing also complains of wheezing. Patient also relates runny nose Review of systems All organ systems evaluated and negative except as in subjective All laboratories and significant diagnostics have been reviewed Reason For Visit: ASTHMA EXACERBATION CONNIE Physical Exam Vital Signs: Temp Pulse Resp BP Pulse Ox 97.6 F 84 18 182/78 H 96 03/14/17 13:00 03/14/17 13:00 03/14/17 13:00 03/14/17 13:00 03/14/17 13:00 Intake & Output 03/13/17 03/14/17 03/15/17 06:59 06:59 06:59 Intake Total 240 1242 Output Total 500 Balance 240 742 Weight 77.3 kg 79.6 kg General appearance: PRESENT: no acute distress, cooperative, obese Head exam: PRESENT: atraumatic, normocephalic Eye exam: PRESENT: EOMI, PERRLA Ear exam: PRESENT: normal external ear exam, TM's normal bilaterally Mouth exam: PRESENT: moist, neck supple Neck exam: PRESENT: full ROM. ABSENT: JVD, lymphadenopathy, tenderness Respiratory exam: ABSENT: tachypnea, unlabored, wheezes - Some of left-sided crackles Cardiovascular exam: PRESENT: RRR. ABSENT: diastolic murmur, systolic murmur Vascular exam: PRESENT: normal capillary refill GI/Abdominal exam: PRESENT: normal bowel sounds, soft. ABSENT: tenderness Extremities exam: PRESENT: full ROM. ABSENT: clubbing, pedal edema Musculoskeletal exam: PRESENT: ambulatory, full ROM Neurological exam: PRESENT: alert, awake, oriented to person, oriented to place , oriented to time, oriented to situation, CN II-XII grossly intact Psychiatric exam: PRESENT: appropriate affect, normal mood Skin exam: PRESENT: intact, normal color Results Laboratory Results: 03/14/17 04:37 03/14/17 04:37 03/13/17 03/14/17 03/14/17 04:48 04:37 04:37 WBC 9.3 RBC 3.60 L Hgb 10.1 L Hct 31.0 L MCV 86 MCH 28.1 MCHC 32.7 RDW 14.3 H Plt Count 284 Seg Neutrophils % Not Reportable Lymphocytes % Not Reportable Monocytes % Not Reportable Eosinophils % Not Reportable Basophils % Not Reportable Absolute Neutrophils Not Reportable Absolute Lymphocytes Not Reportable Absolute Monocytes Not Reportable Absolute Eosinophils Not Reportable Absolute Basophils Not Reportable Sodium 143.0 Potassium 4.8 Chloride 111 H Carbon Dioxide 19 L Anion Gap 13 BUN 20 Creatinine 1.13 Est GFR ( Amer) 56 L Est GFR (Non-Af Amer) 46 L Glucose 134 H Calcium 9.2 Transferrin 235 Impressions: Chest X-Ray 03/11/17 11:47 IMPRESSION: NO SIGNIFICANT RADIOGRAPHIC FINDING IN THE CHEST. Chest CT 03/12/17 00:00 IMPRESSION: Minimal patchy airspace disease in the posterior aspect right middle lobe, and dependent portions of the right and left lungs. Differential is atelectasis versus pneumonia Heavily calcified aortic valve and coronary artery calcifications. Assessment & Plan - Diagnosis (1) Acute renal failure Qualifiers: Acute renal failure type: unspecified Qualified Code(s): N17.9 - Acute kidney failure, unspecified Is this a current diagnosis for this admission?: Yes Plan: Likely due to volume contrast contraction. Resolved (2) Asthma exacerbation Qualifiers: Asthma severity: moderate Asthma persistence: unspecified Qualified Code( s): J45.901 - Unspecified asthma with (acute) exacerbation Is this a current diagnosis for this admission?: Yes Plan: Improved. 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 Patient requested to be restarted on her outpatient regimen (5) Metabolic acidosis Is this a current diagnosis for this admission?: Yes Plan: Resolved (6) UTI (urinary tract infection) Qualifiers: Urinary tract infection type: acute cystitis Hematuria presence: with hematuria Qualified Code(s): N30.01 - Acute cystitis with hematuria Is this a current diagnosis for this admission?: No Plan: Choline count consistent with contaminant (7) Hyperkalemia Is this a current diagnosis for this admission?: Yes Plan: Resolved (8) Anemia Qualifiers: Anemia type: unspecified type Qualified Code(s): D64.9 - Anemia, unspecified Is this a current diagnosis for this admission?: Yes Plan: More consistent with anemia of chronic disease (9) Pneumonia Qualifiers: Pneumonia type: due to unspecified organism Laterality: left Is this a current diagnosis for this admission?: Yes Plan: Continue current management and add stronger antitussive medication. Add incentive spirometer - Time Time Spent with patient: 15-24 minutes Medications reviewed and adjusted accordingly: Yes Anticipated discharge: Home Within: within 24 hours - Inpatient Certification Based on my medical assessment, after consideration of the patient's comorbidities, presenting symptoms, or acuity I expect that the services needed warrant INPATIENT care.: Yes I certify that my determination is in accordance with my understanding of Medicare's requirements for reasonable and necessary INPATIENT services [42 CFR 412.3e].: Yes Medical Necessity: Need Close Monitoring Due to Risk of Patient Decompensation
[2017-03-14] MEDS ORDERED: AMLODIPINE BESYLATE 5 MG TABLET PO ONE ×2 (14:00→19:00)
[2017-03-14] MEDS ORDERED: LISINOPRIL 10 MG TABLET PO ONE (14:00)
[2017-03-14] MEDS: ACETAMINOPHEN WITH CODEINE #3 TABLET PO PRN (21:52)
[2017-03-14] MEDS: TEMAZEPAM 7.5 MG CAPSULE PO PRN (21:53)
[2017-03-14] MEDS: OXYMETAZOLINE HCL 0.05% NASAL SPRAY 15 ML BOTTLE NASL SCH (21:53)
[2017-03-14] MEDS ORDERED: ATORVASTATIN CALCIUM 40 MG TABLET PO SCH (22:00)
[2017-03-15] MEDS: AZITHROMYCIN 250 MG TABLET PO SCH (09:53)
[2017-03-15] MEDS: LACTOBACILLUS ACIDOPHILUS 250 MG TAB PO SCH (09:54)
[2017-03-15] MEDS: PREDNISONE 20 MG TABLET PO SCH (09:56)
[2017-03-15] MEDS: FLUTICASONE/SALMETEROL DISKUS 250-50 MCG/DOSE IH SCH (09:59)
[2017-03-15] MEDS: OXYMETAZOLINE HCL 0.05% NASAL SPRAY 15 ML BOTTLE NASL SCH (09:59)
[2017-03-15] MEDS ORDERED: SERTRALINE HCL 50 MG TABLET PO SCH (10:00)
[2017-03-15] MEDS ORDERED: FERROUS SULFATE 325 MG TABLET PO SCH (10:00)
[2017-03-15] MEDS ORDERED: TAMSULOSIN HCL 0.4 MG CAP.SR.24H PO SCH (10:00)
[2017-03-15] MEDS ORDERED: AMLODIPINE BESYLATE 5 MG TABLET PO SCH (10:00)
[2017-03-15] MEDS ORDERED: LISINOPRIL 10 MG TABLET PO SCH (10:00)
[2017-03-15] MEDS ORDERED: ESTROGENS,CONJUGATED 0.625 MG/1 GM 30 GM TUBE PV SCH (10:00)
[2017-03-15] MEDS ORDERED: LOSARTAN POTASSIUM 50 MG TABLET PO SCH (10:00)
[2017-03-15] MEDS: ENOXAPARIN SODIUM INJ 30 MG/0.3 ML DISP.SYRIN SUBCUT SCH (10:01)
[2017-03-15] MEDS: GLIPIZIDE 5 MG TABLET PO SCH (10:01)
[2017-03-15] MEDS: GUAIFENESIN 600 MG TABLET.SA PO SCH (10:06)
[2017-03-15] MEDS ORDERED: INFLUENZA ADLT QUAD (36MOS+) 2017-18 VAC 0.5 ML SYR IM PRN (10:37)
[2017-03-15 10:54] VITALS: BP 146/80
--- NOTE | 2017-03-17 12:47 | PDOC DISCHARGE SUMMARY ---
General - Admit/Disc Date/PCP Admission Date/Primary Care Provider: 03/11/17 16:48 Discharge Date: 03/15/17 - Discharge Diagnosis (1) Pneumonia Is this a current diagnosis for this admission?: Yes (2) Acute renal failure Is this a current diagnosis for this admission?: Yes (3) Asthma exacerbation Is this a current diagnosis for this admission?: Yes (4) Dehydration Is this a current diagnosis for this admission?: Yes (5) Diabetes mellitus Is this a current diagnosis for this admission?: Yes (6) Metabolic acidosis Is this a current diagnosis for this admission?: Yes (7) UTI (urinary tract infection) Is this a current diagnosis for this admission?: No (8) Hyperkalemia Is this a current diagnosis for this admission?: Yes (9) Anemia Is this a current diagnosis for this admission?: Yes - Additional Information Resuscitation Status: Full Code Discharge Diet: Diabetic Discharge Activity: Activity As Tolerated Prescriptions: Amlodipine Besylate [Norvasc 5 mg Tablet] 5 mg PO DAILY #30 tablet Azithromycin [Zithromax 250 mg Tablet] 500 mg PO DAILY #3 tablet Benzonatate [Tessalon Perles 100 mg Capsule] 200 mg PO Q4HP PRN #30 capsule PRN Reason: Home Medications: Atorvastatin Calcium [Lipitor 40 mg Tablet] 40 mg PO QHS 03/11/17 Fenofibrate Nanocrystallized [Triglide] 160 mg PO DAILY 03/11/17 Glipizide [Glucotrol 5 mg Tablet] 5 mg PO [id number] 03/11/17 Levothyroxine Sodium [Synthroid 0.112 mg Tablet] 0.112 mg PO Q6AM 03/11/17 Losartan Potassium [Cozaar 50 mg Tablet] 50 mg PO DAILY 03/11/17 Montelukast Sodium [Singulair 10 mg Tablet] 10 mg PO QHS 03/11/17 Pantoprazole Sodium [Protonix] 40 mg PO Q6AM 03/11/17 Sertraline HCl [Zoloft 50 mg Tablet] 100 mg PO DAILY 03/11/17 Tamsulosin HCl [Flomax 0.4 mg Cap.sr] 0.4 mg PO DAILY 03/11/17 Albuterol Sulfate [Ventolin HFA MDI 18 GM] 1 puff IH Q6HP PRN 03/14/17 Magnesium Oxide [Mag-Ox 400 mg Tablet] 400 mg PO BID 03/14/17 Amlodipine Besylate [Norvasc 5 mg Tablet] 5 mg PO DAILY #30 tablet 03/15/17 Azithromycin [Zithromax 250 mg Tablet] 500 mg PO DAILY #3 tablet 03/15/17 Benzonatate [Tessalon Perles 100 mg Capsule] 200 mg PO Q4HP PRN #30 capsule Estrogens,Conjugated [Premarin Vaginal Cream (0.625 mg/gm) 30 gm] 1 gm PV Q3DAYS tube 03/15/17 History of Present Illness History of Present Illness: URMILA GALEANO is a 82 year old female presented with complaints of shortness of breath, generalized weakness, cough intermittently productive of 4 day duration. Patient noted she had not been eating at all. She stated she felt extremely dehydrated and weak. Patient noted it hurt her chest and back when coughing. She was admitted under the hospitalist service. Hospital Course Hospital Course: Patient was placed on IV fluids with further trending down of renal functions. A CT of the chest showed mild left-sided pneumonic process. Patient was placed on Zithromax. Major issue that remained a problem was persistent cough and patient had been advised that cough may last up to 2 week or even more. She was prescribed an incentive spirometer. Asthma responded to treatment rendered. Exacerbation related to ongoing infectious process. Blood pressure had been elevated and required adding Norvasc to losartan. There was an initial concern about a urinary tract infection however urine culture grew strep viridans which was consistent with contamination. Patient overall status improved. She has been advised as to follow-up with her primary care provider within 1 week. All findings were discussed with patient's daughter on the day of discharge. Since she had achieved maximum benefit of hospitalization stay prompted to discharge under stable condition Physical Exam Vital Signs: Temp Pulse Resp BP Pulse Ox 97.9 F 79 18 123/59 L 97 03/14/17 23:21 03/14/17 23:21 03/14/17 23:21 03/14/17 23:21 03/14/17 23:21 Intake & Output 03/14/17 03/15/17 03/16/17 06:59 06:59 06:59 Intake Total 1242 2326 Output Total 500 Balance 742 2326 Weight 79.6 kg 78.9 kg Results Laboratory Results: 03/14/17 04:37 03/14/17 04:37 Impressions: Chest X-Ray 03/11/17 11:47 IMPRESSION: NO SIGNIFICANT RADIOGRAPHIC FINDING IN THE CHEST. Chest CT 03/12/17 00:00 IMPRESSION: Minimal patchy airspace disease in the posterior aspect right middle lobe, and dependent portions of the right and left lungs. Differential is atelectasis versus pneumonia Heavily calcified aortic valve and coronary artery calcifications.
== END 2017-03-15 11:30 | disposition home health service (06) | DRG 682 ==
LOC: ER 11:01 → EH 16:48 → UNDOADMOB 16:48 → OBSVTOIN 16:48 → 4N 03-12 13:54
PROVIDERS: ADMIT Internal Medicine; ATTEND Internal Medicine
DX: N17.9 Acute kidney failure, unspecified (principal); J18.9 Pneumonia, unspecified organism; J44.1 Chronic obstructive pulmonary disease with (acute) exacerbation; E87.2 Acidosis; E87.5 Hyperkalemia; E86.0 Dehydration; D64.9 Anemia, unspecified; E11.9 Type 2 diabetes mellitus without complications; I10 Essential (primary) hypertension; E03.9 Hypothyroidism, unspecified; E78.5 Hyperlipidemia, unspecified; Z79.899 Other long term (current) drug therapy; Z90.710 Acquired absence of both cervix and uterus; Z87.891 Personal history of nicotine dependence; Z88.6 Allergy status to analgesic agent; Z88.0 Allergy status to penicillin; Z91.041 Radiographic dye allergy status; Z91.013 Allergy to seafood; Z88.8 Allergy status to other drugs, medicaments and biological substances
CPT/HCPCS: 36415; 71046; 71250; 80048; 80053; 81001; 82607; 82728; 82746; 82803; 82962; 83540; 83550; 83605; 83735; 84100; 84466; 85025; 85027; 85045; 87040; 87086; 87804; 90686; 93005; 93010; 94640; 94799; 96361; 96365; 96375; 99291; G0378; G8978-GP; G8979-GP; J0456; J0696; J0744; J1650; J1815; J2930; J3490; J7030; J7060; J7512; J7620

== ENCOUNTER 2017-08-01 14:22 | Emergency (ER) | payer MEDICARE ==
[2017-08-01] MEDS ORDERED: IPRATROPIUM/ALBUTEROL 0.5-2.5 MG/3 ML AMPUL NEB ONE (14:44)
[2017-08-01] MEDS ORDERED: PREDNISONE 20 MG TABLET PO ONE (14:44)
--- NOTE | 2017-08-01 14:50 | ER Document Report ---
ED Respiratory Problem - General Chief Complaint: Cough Stated Complaint: COUGH Time Seen by Provider: 08/01/17 14:30 Mode of Arrival: Ambulatory Information source: Patient Notes: Patient presents complaining of cough for over the past week. Patient states she saw her primary doctor recently for this and was diagnosed with bronchitis and placed on a 3 day course of antibiotics. Patient states that she finished the antibiotics but she is still had cough with shortness of breath. Patient is concerned that she may have pneumonia. Patient does have asthma and states that her albuterol medication is at home. Patient denies any fever. TRAVEL OUTSIDE OF THE [place] IN LAST 30 DAYS: No - HPI Patient complains to provider of: Asthma, Cough, Short of breath. No: Chest pain Onset: Last week Duration: Worse/persistent Initiating Event: URI Quality of pain: No pain Context: Hx asthma. denies: Hx CHF, Recent long distance trvl, Recent immobilization, Recent surgery, Smoker Short of Breath: Mild Chest pain/discomfort: denies: Tightness Cough: Nonproductive At home treatment: Bronchodilators Associated symptoms: Cough, Wheezing. denies: Bloody cough, Chest pain/ discomfort, Congestion Similar symptoms previously: Yes Recently seen / treated by doctor: Yes - Related Data Allergies/Adverse Reactions: aspirin [Aspirin] Allergy (Intermediate, Verified 03/11/17 11:01) Facial edema and rash Iodinated Contrast- Oral and IV Dye [IV Dye, Iodine Containing] Allergy (Mild, Verified 03/11/17 11:01) Diarrhea Penicillins Allergy (Mild, Verified 03/11/17 11:01) Diarrhea Shellfish * [Shellfish] Allergy (Mild, Verified 03/11/17 11:01) Diarrhea DEION Inhibitors Adverse Reaction (Verified 08/01/17 14:47) cephalexin [From Keflex] Adverse Reaction (Verified 08/01/17 14:47) fish derived Adverse Reaction (Verified 08/01/17 14:47) Sulfa (Sulfonamide Antibiotics) Adverse Reaction (Verified 08/01/17 14:47) Beta thaddeus Allergy (Intermediate, Uncoded 03/11/17 11:01) Difficulty breathing Past Medical History - General Information source: Patient - Social History Smoking Status: Never Smoker Frequency of alcohol use: None Drug Abuse: None Occupation: None Lives with: Friend Family History: Reviewed & Not Pertinent - Past Medical History Cardiac Medical History: Reports: Hx Hypertension Denies: Hx Heart Attack Pulmonary Medical History: Reports: Hx Asthma, Hx COPD Denies: Hx Bronchitis, Hx Pneumonia Neurological Medical History: Denies: Hx Cerebrovascular Accident, Hx Seizures Endocrine Medical History: Reports: Hx Diabetes Mellitus Type 2, Hx Hypothyroidism Renal/ Medical History: Denies: Hx Peritoneal Dialysis Musculoskeltal Medical History: Reports Hx Arthritis - GENERALIZED Past Surgical History: Reports: Hx Abdominal Surgery, Hx Appendectomy, Hx Hysterectomy, Hx Tonsillectomy, Hx Tubal Ligation, Other - sigmoid colectomy - Immunizations Hx Diphtheria, Pertussis, Tetanus Vaccination: Yes Review of Systems - Review of Systems Constitutional: Recent illness - Bronchitis. denies: Fever EENT: No symptoms reported Cardiovascular: denies: Chest pain Respiratory: Cough, Short of breath, Wheezing Gastrointestinal: No symptoms reported. denies: Abdominal pain, Nausea, Vomiting Genitourinary: No symptoms reported. denies: Dysuria, Flank pain, Hematuria Female Genitourinary: No symptoms reported Musculoskeletal: No symptoms reported Skin: No symptoms reported Hematologic/Lymphatic: No symptoms reported Neurological/Psychological: No symptoms reported Physical Exam - Vital signs Vitals: Pulse Ox 94 08/01/17 14:29 - General General appearance: Alert In distress: Mild - HEENT Head: Normocephalic Eyes: Normal Conjunctiva: Normal Nasal: Normal Mouth/Lips: Normal Mucous membranes: Normal Neck: Normal, Supple. No: Lymphadenopathy - Respiratory Respiratory status: Labored - slightly, speaks in 4 word sentences, Tachypnea Chest status: Nontender Breath sounds: Nonproductive cough, Wheezing Chest palpation: Normal - Cardiovascular Rhythm: Regular Heart sounds: S1 appreciated, S2 appreciated Murmur: No - Abdominal Inspection: Normal Tenderness: Nontender - Back Back: Normal, Nontender - Extremities General upper extremity: Normal inspection, Normal ROM General lower extremity: Normal inspection, Normal ROM - Neurological Neuro grossly intact: Yes Cognition: Normal [place] Coma Scale Eye Opening: Spontaneous [place] Coma Scale Verbal: Oriented [place] Coma Scale Motor: Obeys Commands [place] Coma Scale Total: 15 - Psychological Associated symptoms: Normal affect, Normal mood - Skin Skin Temperature: Warm Skin Moisture: Dry Skin Color: Normal Course - Re-evaluation Re-evalutation: 08/01/17 15:56 Patient with increased air movement, wheezing continues. Patient's vital signs stable at this time without hypoxia. 08/01/17 18:[address] Lujan regarding patient presentation and diagnostic evaluation. Reviewed patient's chemistry panel. Suspects patient's renal function abnormality consistent with dehydration, agrees with plan to hydrate patient. Advises discharge with close outpatient follow-up with primary doctor to recheck her labs. Patient's respirations unlabored, patient nontoxic in appearance. Patient states that she does know that she has had some renal function abnormality and is in the process of following up with nephrology, although missed an appointment. 08/01/17 18:41 Patient with decreased wheezing bilaterally, air movement. Vital signs continue stable. Patient agreeable with plan of care at this time. Discussed worsening symptoms that she should return immediately for. - Vital Signs Vital signs: Temp Pulse Resp BP Pulse Ox 98.3 F 16 105/63 96 08/01/17 14:31 08/01/17 15:00 08/01/17 15:00 08/01/17 15:00 - Laboratory Result Diagrams: 08/01/17 15:20 08/01/17 16:54 Laboratory results interpreted by me: 08/01/17 08/01/17 08/01/17 15:20 16:20 16:54 RDW 14.5 H Potassium 5.2 H BUN 43 H Creatinine 2.28 H Est GFR ( Amer) 25 L Est GFR (Non-Af Amer) 21 L Glucose 124 H Urine Protein 30 H Ur Leukocyte Esterase TRACE H Labs- Entire Visit 08/01/17 08/01/17 08/01/17 15:20 15:20 15:20 WBC 7.7 RBC 4.34 Hgb 12.8 Hct 37.8 MCV 87 MCH 29.4 MCHC 33.8 RDW 14.5 H Plt Count 309 Seg Neutrophils % 64.7 Lymphocytes % 25.8 Monocytes % 7.8 Eosinophils % 1.2 Basophils % 0.5 Absolute Neutrophils 5.0 Absolute Lymphocytes 2.0 Absolute Monocytes 0.6 Absolute Eosinophils 0.1 Absolute Basophils 0.0 VBG pH 7.42 VBG pCO2 36.4 VBG HCO3 23.1 VBG Base Excess -0.9 Sodium Cancelled Potassium Cancelled Chloride Cancelled Carbon Dioxide Cancelled Anion Gap Cancelled BUN Cancelled Creatinine Cancelled Est GFR ( Amer) Cancelled Est GFR (Non-Af Amer) Cancelled Glucose Cancelled Calcium Cancelled Urine Color Urine Appearance Urine pH Ur Specific Cameron Urine Protein Urine Glucose (UA) Urine Ketones Urine Blood Urine Nitrite Urine Bilirubin Urine Urobilinogen Ur Leukocyte Esterase Urine WBC (Auto) Urine RBC (Auto) U Hyaline Cast (Auto) Squamous Epi Cells Auto Urine Mucus (Auto) Urine Ascorbic Acid 08/01/17 08/01/17 08/01/17 16:03 16:20 16:54 WBC RBC Hgb Hct MCV MCH MCHC RDW Plt Count Seg Neutrophils % Lymphocytes % Monocytes % Eosinophils % Basophils % Absolute Neutrophils Absolute Lymphocytes Absolute Monocytes Absolute Eosinophils Absolute Basophils VBG pH VBG pCO2 VBG HCO3 VBG Base Excess Sodium Cancelled 144.5 Potassium Cancelled 5.2 H Chloride Cancelled 105 Carbon Dioxide Cancelled 25 Anion Gap Cancelled 15 BUN Cancelled 43 H Creatinine Cancelled 2.28 H Est GFR ( Amer) Cancelled 25 L Est GFR (Non-Af Amer) Cancelled 21 L Glucose Cancelled 124 H Calcium Cancelled 9.8 Urine Color YELLOW Urine Appearance CLOUDY Urine pH 5.0 Ur Specific Cameron 1.017 Urine Protein 30 H Urine Glucose (UA) NEGATIVE Urine Ketones NEGATIVE Urine Blood NEGATIVE Urine Nitrite NEGATIVE Urine Bilirubin NEGATIVE Urine Urobilinogen NEGATIVE Ur Leukocyte Esterase TRACE H Urine WBC (Auto) 4 Urine RBC (Auto) 1 U Hyaline Cast (Auto) 7 Squamous Epi Cells Auto 1 Urine Mucus (Auto) MANY Urine Ascorbic Acid NEGATIVE - Diagnostic Test Radiology reviewed: Reports reviewed Discharge - Discharge Clinical Impression: Dehydration, Abnormal renal function test Asthma exacerbation Qualifiers: Asthma severity: unspecified severity Asthma persistence: unspecified Qualified Code(s): J45.901 - Unspecified asthma with (acute) exacerbation Condition: Stable Disposition: HOME, SELF-CARE Instructions: Asthma (PENDING SALE TO [facility]), Inhaled Bronchodilators (PENDING SALE TO [facility]), Kidney Function Abnormality (PENDING SALE TO [facility]), Steroid Medication Additional Instructions: Return immediately for any new or worsening symptoms or if you are not able to follow-up with your primary doctor by Saturday of next week. Followup with your primary care provider, call tomorrow to make a followup appointment Your lab work was concerning for dehydration. Be sure to increase oral fluid intake. Your renal function test was abnormal. It is important that you see your primary doctor to have this test rechecked in the next few days. Call your doctor tomorrow to discuss when to have your blood tests redrawn. Prescriptions: Albuterol Sulfate [Ventolin 0.083% Neb 2.5 mg/3 ml Ampul] 1 vial NEB Q4 PRN #30 vial PRN Reason: Prednisone [Deltasone 20 mg Tablet] 2 tab PO DAILY 4 Days tablet Referrals: FREDY KNIGHT MD [COMMUNITY BASED STAFF] - Follow up tomorrow Esa BRUNSON MD [ACTIVE STAFF] - Follow up in 3-5 days
--- NOTE | 2017-08-01 15:11 | RADIOLOGY REPORT (SQ) ---
EXAM DESCRIPTION: CHEST 2 VIEWS COMPLETED DATE/TIME: 08/01/2017 3:00 pm REASON FOR STUDY: cough COMPARISON: February 2017 EXAM PARAMETERS: NUMBER OF VIEWS: two views TECHNIQUE: Digital Frontal and Lateral radiographic views of the chest acquired. RADIATION DOSE: NA LIMITATIONS: none FINDINGS: LUNGS AND PLEURA: No opacities, masses or pneumothorax. No pleural effusion. MEDIASTINUM AND HILAR STRUCTURES: No masses or contour abnormalities. HEART AND VASCULAR STRUCTURES: Heart normal size. No evidence for failure. BONES: No acute findings. HARDWARE: None in the chest. OTHER: No other significant finding. IMPRESSION: NO ACUTE RADIOGRAPHIC FINDING IN THE CHEST. TECHNICAL DOCUMENTATION: JOB ID: [id number] [employer]- All Rights Reserved Reading location - IP/workstation name: [email or web address]
[2017-08-01 15:35] LABS: VENOUS BLOOD BASE EXCESS -0.9 mmol/L; VENOUS BLOOD HCO3 23.1 mmol/L (20-32); VENOUS BLOOD PCO2 36.4 mmHg (35-63); VENOUS BLOOD PH 7.42 (7.30-7.42)
[2017-08-01 15:39] LABS: ABSOLUTE EOSINOPHILS # (AUTO) 0.1 10^3/uL (0.0-0.6); ABSOLUTE MONOCYTES (AUTO) 0.6 10^3/uL (0.1-1.4); BASOPHILS % (AUTO) 0.5 % (0-2); EOSINOPHILS % (AUTO) 1.2 % (0-6); HEMATOCRIT 37.8 % (36.0-47.0); HEMOGLOBIN 12.8 g/dL (12.0-15.5); LYMPHOCYTES % (AUTO) 25.8 % (13-45); MEAN CORPUSCULAR HEMOGLOBIN 29.4 pg (27.0-33.4); MEAN CORPUSCULAR HGB CONC 33.8 g/dL (32.0-36.0); MEAN CORPUSCULAR VOLUME 87 fl (80-97); MONOCYTES % (AUTO) 7.8 % (3-13); PLATELET COUNT 309 10^3/uL (150-450); RED BLOOD COUNT 4.34 10^6/uL (3.72-5.28); RED CELL DISTRIBUTION WIDTH 14.5 % (11.5-14.0); SEGMENTED NEUTROPHILS % (AUTO) 64.7 % (42-78); TOTAL CELLS COUNTED % (AUTO) 100 %; WHITE BLOOD COUNT 7.7 10^3/uL (4.0-10.5)
[2017-08-01] MEDS ORDERED: ALBUTEROL SULFATE 0.083% NEB 2.5 MG/3 ML AMPUL NEB ONE ×2 (15:56→16:45)
[2017-08-01 17:25] LABS: ANION GAP 15 (5-19); BLOOD UREA NITROGEN 43 mg/dL (7-20); CALCIUM 9.8 mg/dL (8.4-10.2); CARBON DIOXIDE 25 mmol/L (22-30); CHLORIDE 105 mmol/L (98-107); GLUCOSE 124 mg/dL (75-110); POTASSIUM 5.2 mmol/L (3.6-5.0); SODIUM 144.5 mmol/L (137-145)
[2017-08-01 17:26] LABS: APPEARANCE,URINE CLOUDY; BILIRUBIN,URINE NEGATIVE (NEGATIVE); COLOR,URINE YELLOW; GLUCOSE, URINE NEGATIVE (NEGATIVE); KETONES,URINE NEGATIVE (NEGATIVE); LEUKOCYTE ESTERASE,URINE TRACE (NEGATIVE); NITRITE,URINE NEGATIVE (NEGATIVE); PROTEIN,URINE 30 mg/dL (NEGATIVE); URINE SPECIFIC GRAVITY 1.017; UROBILINOGEN,URINE NEGATIVE mg/dL (<2.0)
[2017-08-01] MEDS ORDERED: NORMAL SALINE 1000 ML 1,000 ML IV ONE (18:01)
[2017-08-01 19:03] VITALS: BP 120/65
== END 2017-08-01 19:17 | disposition home or self-care (01) ==
LOC: ER 14:22
DX: J45.901 Unspecified asthma with (acute) exacerbation (principal); E86.0 Dehydration; R94.4 Abnormal results of kidney function studies; R05 Cough; I10 Essential (primary) hypertension; Z88.6 Allergy status to analgesic agent; Z88.2 Allergy status to sulfonamides; Z88.0 Allergy status to penicillin; Z91.013 Allergy to seafood; Z90.710 Acquired absence of both cervix and uterus
CPT/HCPCS: 94640 ×2; 99284; 36415; 85025; 80048; 81001; 82803; 71046; A9270 ×3; J7030; J7512; J7620

== ENCOUNTER → 2017-10-14 | Outpatient (CLI) | payer MEDICARE ==
[2017-10-14 10:02] LABS: HEMATOCRIT 39.5 % (36.0-47.0); HEMOGLOBIN 13.3 g/dL (12.0-15.5); MEAN CORPUSCULAR HEMOGLOBIN 29.5 pg (27.0-33.4); MEAN CORPUSCULAR HGB CONC 33.7 g/dL (32.0-36.0); MEAN CORPUSCULAR VOLUME 88 fl (80-97); PLATELET COUNT 306 10^3/uL (150-450); RED BLOOD COUNT 4.51 10^6/uL (3.72-5.28); RED CELL DISTRIBUTION WIDTH 13.5 % (11.5-14.0); WHITE BLOOD COUNT 7.1 10^3/uL (4.0-10.5)
[2017-10-14 10:05] LABS: APPEARANCE,URINE CLEAR; BILIRUBIN,URINE NEGATIVE (NEGATIVE); COLOR,URINE YELLOW; GLUCOSE, URINE NEGATIVE (NEGATIVE); KETONES,URINE NEGATIVE (NEGATIVE); LEUKOCYTE ESTERASE,URINE NEGATIVE (NEGATIVE); NITRITE,URINE NEGATIVE (NEGATIVE); PROTEIN,URINE NEGATIVE (NEGATIVE); URINE SPECIFIC GRAVITY 1.015; UROBILINOGEN,URINE NEGATIVE mg/dL (<2.0)
[2017-10-14 10:34] LABS: ANION GAP 14 (5-19); BLOOD UREA NITROGEN 22 mg/dL (7-20); CALCIUM 9.8 mg/dL (8.4-10.2); CARBON DIOXIDE 28 mmol/L (22-30); CHLORIDE 103 mmol/L (98-107); GLUCOSE 147 mg/dL (75-110); POTASSIUM 4.9 mmol/L (3.6-5.0); SODIUM 144.9 mmol/L (137-145)
[2017-10-16 11:39] LABS: CREATININE URINE 80.7 mg/dL (Not Estab.); MICROALBUMIN URINE 47.2 ug/mL (Not Estab.)
== END ==
LOC: OD 09:12
PROVIDERS: ATTEND Internal Medicine Nephrology
DX: I12.9 Hypertensive chronic kidney disease with stage 1 through stage 4 chronic kidney disease, or unspecified chronic kidney disease (principal); E11.22 Type 2 diabetes mellitus with diabetic chronic kidney disease; N18.2 Chronic kidney disease, stage 2 (mild)
CPT/HCPCS: 36415; 80048; 81001; 82043; 82570; 85027

== ENCOUNTER → 2017-11-26 | Outpatient (CLI) | payer MEDICARE ==
--- NOTE | 2017-11-26 11:22 | WOMENS IMAGING REPORT ---
EXAM DESCRIPTION: BONE DENSITY HIP/SPINE COMPLETED DATE/TIME: 11/26/2017 10:59 am REASON FOR STUDY: OSTEOPOROSIS M81.0 AGE-RELATED OSTEOPOROSIS W/O CURRENT PATHOLOGICAL FRAC COMPARISON: 2014 TECHNIQUE: Dual-Energy X-ray Absorptiometry (DEXA) of the AP Spine and Hip. LIMITATIONS: None. FINDINGS: LUMBAR SPINE: The bone mineral density (BMD) measured from L1-L4 in the AP projection correlates with a T-score of 0.2, previously 0.3, which is normal as defined by the World Health Organization. HIP: The bone mineral density (BMD) measured in the left hip correlates with a T-score of -1.1, unchanged, which is osteopenia as defined by the World Health Organization. IMPRESSION: 1. LUMBAR SPINE: NORMAL. 2. HIP: OSTEOPENIA. COMMENT: The World Health Organization defines low BMD as follows: T-score: Normal: Greater than -1.0 Osteopenia: Between -1.0 and -2.5 Osteoporosis: Less than -2.5 without fractures Established osteoporosis: Less than -2.5 with fractures In general, you may wish to consider: Diagnosis Treatment Follow-up DEXA Normal BMD Prevention 2-3 years Osteopenia Prevention/Therapy 1-2 years Osteoporosis Therapy Yearly TECHNICAL DOCUMENTATION: JOB ID: [id number] [employer]- All Rights Reserved Reading location - IP/workstation name: [email or web address]
== END ==
LOC: WI 10:06
PROVIDERS: ATTEND Internal Medicine
DX: M81.0 Age-related osteoporosis without current pathological fracture (principal)
CPT/HCPCS: 77080

== ENCOUNTER 2017-12-02 10:33 | Day surgery (SDC) | payer MEDICARE ==
[~2017-12-02 10:33] MED LIST changes: -CEFTRIAXONE 1 GM/D5W RTU 50 ML IV SCH; +PROPOFOL INJ 200 MG/20 ML VIAL IV ONE
[2017-12-02 13:03] VITALS: BP 125/68
--- NOTE | 2017-12-02 13:19 | Operative Report ---
Operative Report DATE OF SURGERY: 12/02/17 Operative Report: The risks, benefits and alternatives of the procedure including the risk of bleeding, perforation requiring surgery are explained to the patient in detail and informed consent is obtained. Patient is brought back to the endoscopy suite and placed in a left, lateral decubital position. Timeout was called. Propofol medication is administered. A rectal examination is done which did not reveal any masses, tears or fissures. An Olympus videoscope was inserted into the patient's rectum. The scope was then carefully advanced all the way to the cecum. The cecum was identified by the usual anatomical landmarks including the ileocecal valve as well as the appendiceal office. Photodocumentation is obtained. The scope was then sequentially pulled back via the various segments of the colon including the ascending colon, hepatic flexure, transverse colon, splenic flexure, descending colon and finally into the rectosigmoid portions of the colon. Retroflexion maneuvers performed. Carbon dioxide insufflation is used during the procedure Scope withdrawal time was 15 minutes PREOPERATIVE DIAGNOSIS: Change of bowel habits. Blood in stool. Diverticulosis history POSTOPERATIVE DIAGNOSIS: Blood likely from internal hemorrhoids. Diverticulosis without any evidence of diverticulitis. Small polyp at the hepatic flexure that was removed via biopsy forceps. No intrinsic or extrinsic narrowing of the colon OPERATION: Colonoscopy with biopsy SURGEON: CT BONILLA ANESTHESIA: LMAC TISSUE REMOVED OR ALTERED: As noted above. COMPLICATIONS: None. ESTIMATED BLOOD LOSS: None. INTRAOPERATIVE FINDINGS: As noted above. PROCEDURE: Patient tolerated the procedure well. No immediate postprocedure complications are noted. Patient discharged in good condition. Discharge date 12/02/2017. Discharge diet: Regular. Discharge activity: Regular. 2-3-week follow-up to discuss findings. Patient is instructed to call the office or proceed to the emergency room should there be any further problems or questions. Wait on the pathology. 3-5-year surveillance colonoscopy.
== END 2017-12-02 12:45 | disposition home or self-care (01) ==
LOC: END 10:33
PROVIDERS: ATTEND Internal Medicine Gastroenterology
DX: K57.30 Diverticulosis of large intestine without perforation or abscess without bleeding (principal); D21.6 Benign neoplasm of connective and other soft tissue of trunk, unspecified; K64.8 Other hemorrhoids; E11.22 Type 2 diabetes mellitus with diabetic chronic kidney disease; K62.5 Hemorrhage of anus and rectum; I12.9 Hypertensive chronic kidney disease with stage 1 through stage 4 chronic kidney disease, or unspecified chronic kidney disease; N18.9 Chronic kidney disease, unspecified; E07.9 Disorder of thyroid, unspecified; J45.909 Unspecified asthma, uncomplicated; Z79.4 Long term (current) use of insulin; Z79.51 Long term (current) use of inhaled steroids; Z79.899 Other long term (current) drug therapy; Z88.2 Allergy status to sulfonamides; Z88.6 Allergy status to analgesic agent; Z88.0 Allergy status to penicillin
CPT/HCPCS: 45380; 82962; 88305 ×2; J2704; 811

== ENCOUNTER → 2018-05-07 | Outpatient (CLI) | payer MEDICARE ==
[2018-05-07 09:38] LABS: HEMATOCRIT 39.1 % (36.0-47.0); HEMOGLOBIN 13.1 g/dL (12.0-15.5); MEAN CORPUSCULAR HEMOGLOBIN 28.7 pg (27.0-33.4); MEAN CORPUSCULAR HGB CONC 33.6 g/dL (32.0-36.0); MEAN CORPUSCULAR VOLUME 85 fl (80-97); PLATELET COUNT 303 10^3/uL (150-450); RED BLOOD COUNT 4.58 10^6/uL (3.72-5.28); RED CELL DISTRIBUTION WIDTH 14.4 % (11.5-14.0); WHITE BLOOD COUNT 6.8 10^3/uL (4.0-10.5)
[2018-05-07 09:45] LABS: APPEARANCE,URINE CLEAR; BILIRUBIN,URINE NEGATIVE (NEGATIVE); COLOR,URINE YELLOW; GLUCOSE, URINE NEGATIVE (NEGATIVE); KETONES,URINE NEGATIVE (NEGATIVE); LEUKOCYTE ESTERASE,URINE SMALL (NEGATIVE); NITRITE,URINE NEGATIVE (NEGATIVE); PROTEIN,URINE NEGATIVE (NEGATIVE); URINE SPECIFIC GRAVITY 1.015; UROBILINOGEN,URINE NEGATIVE mg/dL (<2.0)
[2018-05-07 10:10] LABS: ANION GAP 9 (5-19); BLOOD UREA NITROGEN 22 mg/dL (7-20); CALCIUM 9.9 mg/dL (8.4-10.2); CARBON DIOXIDE 32 mmol/L (22-30); CHLORIDE 102 mmol/L (98-107); GLUCOSE 122 mg/dL (75-110); POTASSIUM 5.2 mmol/L (3.6-5.0); SODIUM 143.4 mmol/L (137-145)
[2018-05-08 10:38] LABS: CREATININE URINE 73.1 mg/dL (Not Estab.); MICROALBUMIN URINE 34.1 ug/mL (Not Estab.)
== END ==
LOC: OD 08:42
PROVIDERS: ATTEND Internal Medicine Nephrology
DX: I12.9 Hypertensive chronic kidney disease with stage 1 through stage 4 chronic kidney disease, or unspecified chronic kidney disease (principal); N18.2 Chronic kidney disease, stage 2 (mild); E11.22 Type 2 diabetes mellitus with diabetic chronic kidney disease
CPT/HCPCS: 36415; 80048; 81001; 82043; 82570; 85027

== ENCOUNTER 2018-05-14 23:03 | Inpatient (IN) | payer MEDICARE ==
[2018-05-14] MEDS ORDERED: ASPIRIN 81 MG TABLET, CHEWABLE PO ONE (23:16)
--- NOTE | 2018-05-15 00:18 | ER Document Report ---
ED General - General TRAVEL OUTSIDE OF THE [place] IN LAST 30 DAYS: No <VIDHYA OCAMPO - Last Filed: 05/15/18 08:11> <KARISSA HUMMEL - Last Filed: 05/15/18 10:00> - General Chief Complaint: Chest Pain Stated Complaint: CHEST PAIN Time Seen by Provider: 05/15/18 00:08 Notes: Patient is an 83-year-old female that comes emergency department for chief complaint of shortness of breath and a tightness in her chest that felt like a band around her mid to lower chest that started earlier in the day but worsened this evening. Patient has used 3 separate albuterol nebulizer treatments today because of her symptoms. She has a history of asthma, states that that this time of year she has a lot more trouble. Pain felt like it did go up into her neck and arm on the left side at one point briefly. Patient reports minimal cough, no fever, patient denies nausea or vomiting. She is not on home oxygen. Patient denies any cardiovascular history, denies smoking or COPD. Past medical history of Type II diabetes, hypothyroidism and hyperlipidemia, and a PE years ago (not on anticoagulation now). She is not on home oxygen. Daughter at bedside. (TERRENCEVIDHYA) - Related Data Allergies/Adverse Reactions: aspirin [Aspirin] Allergy (Intermediate, Verified 05/14/18 23:43) Facial edema and rash Iodinated Contrast- Oral and IV Dye [IV Dye, Iodine Containing] Allergy (Mild, Verified 05/14/18 23:43) Diarrhea Penicillins Allergy (Mild, Verified 05/14/18 23:43) Diarrhea Shellfish * [Shellfish] Allergy (Mild, Verified 05/14/18 23:43) Diarrhea DEION Inhibitors Adverse Reaction (Verified 05/14/18 23:43) cephalexin [From Keflex] Adverse Reaction (Verified 05/14/18 23:43) fish derived Adverse Reaction (Verified 05/14/18 23:43) Sulfa (Sulfonamide Antibiotics) Adverse Reaction (Verified 05/14/18 23:43) Beta thaddeus Allergy (Intermediate, Uncoded 05/14/18 23:43) Difficulty breathing Past Medical History - General Information source: Patient, Relative - Social History Smoking Status: Former Smoker Frequency of alcohol use: Rare Drug Abuse: None Lives with: Family Family History: Reviewed & Not Pertinent Patient has suicidal ideation: No Patient has homicidal ideation: No - Past Medical History Cardiac Medical History: Reports: Hx Hypertension Denies: Hx Heart Attack Pulmonary Medical History: Reports: Hx Asthma, Hx COPD, Hx Pneumonia Denies: Hx Bronchitis Neurological Medical History: Denies: Hx Cerebrovascular Accident, Hx Seizures Endocrine Medical History: Reports: Hx Diabetes Mellitus Type 2, Hx Hypothyroidism Renal/ Medical History: Denies: Hx Peritoneal Dialysis Musculoskeletal Medical History: Reports Hx Arthritis - GENERALIZED Past Surgical History: Reports: Hx Abdominal Surgery - sigmoid colon resection, Hx Appendectomy, Hx Gynecologic Surgery - partial ovaries left after hysterectomy, Hx Hysterectomy, Hx Tonsillectomy, Hx Tubal Ligation, Other - sigmoid colectomy - Immunizations Hx Diphtheria, Pertussis, Tetanus Vaccination: Yes <VIDHYA OCAMPO - Last Filed: 05/15/18 08:11> Review of Systems - Review of Systems Constitutional: No symptoms reported EENT: No symptoms reported Cardiovascular: See HPI Respiratory: See HPI Gastrointestinal: No symptoms reported Genitourinary: No symptoms reported Female Genitourinary: No symptoms reported Musculoskeletal: No symptoms reported Skin: No symptoms reported Hematologic/Lymphatic: No symptoms reported Neurological/Psychological: No symptoms reported <VIDHYA OCAMPO - Last Filed: 05/15/18 08:11> Physical Exam <TERRENCELEELEEVIDHYA - Last Filed: 05/15/18 08:11> - Vital signs Vitals: Temp Pulse Resp BP Pulse Ox 99.6 F 118 H 16 138/73 H 93 05/14/18 23:17 05/14/18 23:17 05/14/18 23:17 05/14/18 23:17 05/14/18 23:17 - Notes Notes: GENERAL: Alert, interacts well. No acute distress. HEAD: Normocephalic, atraumatic. EYES: Pupils equal, round, and reactive to light. Extraocular movements intact. ENT: Oral mucosa moist, tongue midline. Oropharynx unremarkable. Airway patent. Nares patent, no nasal septal hematoma, TM's intact. NECK: Full range of motion. Supple. Trachea midline. LUNGS: Clear to auscultation bilaterally, no wheezes, rales, or rhonchi. No respiratory distress. HEART: Mild tachycardia, normal rhythm. Positive murmur. ABDOMEN: Soft, non-tender. Non-distended. Bowel sounds present in all 4 quadrants. GENITOURINARY: Deferred EXTREMITIES: Moves all 4 extremities spontaneously. No edema, normal radial and dorsalis pedis pulses bilaterally. No cyanosis. BACK: no cervical, thoracic, lumbar midline tenderness. No saddle anesthesia, normal distal neurovascular exam. NEUROLOGICAL: Alert and oriented x3. Normal speech. [cranial nerves II through XII grossly intact]. PSYCH: Normal affect, normal mood. SKIN: Warm, dry, normal turgor. No rashes or lesions noted. (VIDHYA OCAMPO) Course - Laboratory Result Diagrams: 05/15/18 00:20 05/15/18 00:20 <VIDHYA OCAMPO - Last Filed: 05/15/18 08:11> - Laboratory Result Diagrams: 05/15/18 00:20 05/15/18 00:20 <KARISSA HUMMEL - Last Filed: 05/15/18 10:00> - Re-evaluation Re-evalutation: EKG shows sinus tachycardia at a rate of 117. On evaluation patient is clear lungs, no tachypnea. Oxygen 93% initially, 94 to 96% on my evaluation. She has no signs of distress. She reports she felt like she was having an asthma exacerbation and therefore kept using her nebulizer, however I do not see any evidence of this on exam. She does not have lower extremity swelling. Chest x-ray unremarkable. CBC, chemistry generally unremarkable except for hyperglycemia without acidosis. Troponin is indeterminate at 0.05, no comparison. Patient reevaluated, no significant change. CT was ordered but this was canceled because patient has a history of allergic reaction to IV contrast dye. I discussed with Dr. Castro, his recommendation is not CTA with premedication, it is admission with V/Q, repeat cardiac enzymes. I discussed this with daughter and patient at bedside in detail. They state understanding and agreement with plan. I discussed with Dr. Ward, patient will be admitted to telemetry observation. V/Q was ordered. I was called back into the room after the second troponin. Second troponin is 0.119, just barely below our cutoff for [facility]. Patient is chest pain-free on my evaluation. Patient is asking if she can go home. I explained that I am concerned that because of her shortness of breath, chest pain, elevated troponins, and history of pulmonary embolism, she could have an underlying blood clot. In addition to this she might be having an NSTEMI. After this patient agrees to have the V/Q performed next before any additional interventions, I discussed this with daughter in detail as well. I discussed that if the VQ is positive we would likely need to admit her to the hospital here, if the VQ is negative I recommended that we transfer her to tertiary care for interventional cardiology if she was agreeable to this. I was asked more questions, again discussed, patient now stating that she does not want to have any intervention of any kind, she will consider admission here but she does not want to be transferred. 05/15/18 08:[address] Escobar. Introduced to Alondra WERNER at bedside (to daughter, patient in VQ). (VIDHYA OCAMOP) 05/15/18 10:00 Reviewed the patient's VQ scan report, no concern for PE. Provider noted that Dr. vora had already been in to see patient and had written admission orders. Patient is agreeable with admission at this time. (KARISSA HUMMEL) - Vital Signs Vital signs: Temp Pulse Resp BP Pulse Ox 97.6 F 118 H 19 136/71 H 95 05/15/18 06:22 05/14/18 23:17 05/15/18 07:00 05/15/18 06:00 05/15/18 06:52 - Laboratory Laboratory results interpreted by me: 05/15/18 05/15/18 00:20 00:20 RDW 14.5 H Seg Neutrophils % 83.6 H Lymphocytes % 10.0 L Absolute Neutrophils 8.5 H BUN 22 H Est GFR ( Amer) 56 L Est GFR (Non-Af Amer) 46 L Glucose 281 H Discharge - Discharge Admitting Provider: Hospitalist Unit Admitted: Telemetry <VIDHYA OCAMPO - Last Filed: 05/15/18 08:11> <KARISSA HUMMEL - Last Filed: 05/15/18 10:00> - Discharge Clinical Impression: Shortness of breath, Chest pain, Tachycardia Condition: Stable Disposition: ADMITTED OBSERVATION
[2018-05-15] MEDS ORDERED: IPRATROPIUM/ALBUTEROL 0.5-2.5 MG/3 ML AMPUL NEB ONE (00:19)
[2018-05-15] MEDS ORDERED: METHYLPREDNISOLONE INJ 125 MG/2 ML SDV IV ONE (00:19)
--- NOTE | 2018-05-15 00:31 | RADIOLOGY REPORT (SQ) ---
CLINICAL HISTORY: cp COMPARISON: March 11, 2017. TECHNIQUE: XR CHEST 1 VIEW 05/14/2018 11:16 PM CDT FINDINGS: Cardiac silhouette is normal in size. Lungs are clear without consolidation, atelectasis, mass or edema. There is no pleural effusion. There is no pneumothorax. There are no acute osseous findings. IMPRESSION: Clear lungs.
[2018-05-15 00:44] LABS: ABSOLUTE MONOCYTES (AUTO) 0.6 10^3/uL (0.1-1.4); ABSOLUTE NEUT (AUTO) 8.5 10^3/uL (1.7-8.2); BASOPHILS % (AUTO) 0.4 % (0-2); EOSINOPHILS % (AUTO) 0.1 % (0-6); HEMATOCRIT 37.1 % (36.0-47.0); HEMOGLOBIN 12.5 g/dL (12.0-15.5); MEAN CORPUSCULAR HEMOGLOBIN 28.9 pg (27.0-33.4); MEAN CORPUSCULAR HGB CONC 33.6 g/dL (32.0-36.0); MEAN CORPUSCULAR VOLUME 86 fl (80-97); MONOCYTES % (AUTO) 5.9 % (3-13); PLATELET COUNT 277 10^3/uL (150-450); RED BLOOD COUNT 4.31 10^6/uL (3.72-5.28); RED CELL DISTRIBUTION WIDTH 14.5 % (11.5-14.0); SEGMENTED NEUTROPHILS % (AUTO) 83.6 % (42-78); TOTAL CELLS COUNTED % (AUTO) 100 %; WHITE BLOOD COUNT 10.1 10^3/uL (4.0-10.5)
[2018-05-15 00:56] LABS: ALANINE AMINOTRANSFERASE 30 U/L (9-52); ALBUMIN 4.2 g/dL (3.5-5.0); ALKALINE PHOSPHATASE 123 U/L (38-126); ANION GAP 12 (5-19); ASPARTATE AMINO TRANSFERASE 23 U/L (14-36); BILIRUBIN,DIRECT 0.2 mg/dL (0.0-0.4); BILIRUBIN,TOTAL 0.3 mg/dL (0.2-1.3); BLOOD UREA NITROGEN 22 mg/dL (7-20); CALCIUM 9.5 mg/dL (8.4-10.2); CARBON DIOXIDE 26 mmol/L (22-30); CHLORIDE 100 mmol/L (98-107); GLUCOSE 281 mg/dL (75-110); POTASSIUM 4.6 mmol/L (3.6-5.0); TOTAL PROTEIN 7.2 g/dL (6.3-8.2)
[2018-05-15 02:24] LABS: VENOUS BLOOD BASE EXCESS -0.2 mmol/L; VENOUS BLOOD HCO3 24.3 mmol/L (20-32); VENOUS BLOOD PCO2 39.3 mmHg (35-63); VENOUS BLOOD PH 7.41 (7.30-7.42)
[2018-05-15] MEDS ORDERED: ACETAMINOPHEN 325 MG TABLET PO ONE (05:37)
[2018-05-15] MEDS ORDERED: IBUPROFEN 400 MG TABLET PO ONE (06:58)
--- NOTE | 2018-05-15 08:31 | RADIOLOGY REPORT (SQ) ---
EXAM DESCRIPTION: NM LUNG VENT/PERF SCAN COMPLETED DATE/TIME: 05/15/2018 8:22 am REASON FOR STUDY: tachycardia, shortness of breath, hx of PE COMPARISON: Non contrasted CT chest 03/12/2017 Chest films 08/01/2017, 05/14/2018 RADIONUCLIDE AND DOSE: 5.5 millicuries TC-99m MAA Intravenous 29.1 millicuries TC-99m DTPA Inhaled aerosol TECHNIQUE: 2 views of the lungs acquired post ventilation of DTPA aerosol. Eight views of the lungs acquired following injection of MAA. LIMITATIONS: None. FINDINGS: VENTILATION: Symmetric and homogeneous distribution of DTPA aerosol during ventilatory pha se. No significant areas of photopenia. PERFUSION: Perfusion images with normal homogenous activity and no wedge-shaped or segmental defects. No ventilation-perfusion mismatches. OTHER: No other significant finding. IMPRESSION: NORMAL VENTILATION-PERFUSION LUNG SCAN. NEGATIVE FOR PULMONARY EMBOLI. TECHNICAL DOCUMENTATION: JOB ID: [id number] [employer]- All Rights Reserved Reading location - IP/workstation name: [email or web address]
--- NOTE | 2018-05-15 09:40 | PDOC H&P ---
History of Present Illness Admission Date/PCP: 05/15/18 04:51 Esa BRUNSON MD History of Present Illness: URMILA GALEANO is a 83 year old female with past medical history of type 2 diabetes mellitus, hypothyroidism, bronchial asthma, irritable bowel syndrome, history of PE, hypertension and hyperlipidemia presented with chief complaint of chest pain yesterday night. Patient describes her chest pain tightness localizes to her left precordium and radiating to her makes. Patient also endorses associated shortness of breath. She has mild cough but denies any chills, fever, palpitation or diaphoresis. She does not have any nausea vomiting or abdominal pain. No urinary complaints. Her initial troponin is 0.053 and the subsequent troponin increased to 0.119. Since patient has prior history of pulmonary embolism the possibility of PE entertained and patient s ubjected to VQ scan should she has allergy to dye and this morning the VQ scan reported as no evidence of pulmonary embolism. Patient does not want to be transferred to tertiary center and she does not want any kind of intervention including cardiac catheterization. Past Medical History Cardiac Medical History: Reports: Coronary Artery Disease, Hypertension Denies: Myocardial Infarction Pulmonary Medical History: Reports: Asthma, Chronic Obstructive Pulmonary Disease (COPD), Pneumonia Denies: Bronchitis Neurological Medical History: Denies: Seizures Endocrine Medical History: Reports: Diabetes Mellitus Type 2, Hypothyroidism Musculoskeltal Medical History: Reports: Arthritis - GENERALIZED Hematology: Denies: Anemia Past Surgical History Past Surgical History: Reports: Appendectomy, Hysterectomy, Tonsillectomy, Tubal Ligation, Other - sigmoid colectomy Social History Lives with: Family Smoking Status: Former Smoker Frequency of Alcohol Use: None Hx Recreational Drug Use: No Drugs: None Hx Prescription Drug Abuse: No - Advance Directive Resuscitation Status: Full Code Family History Family History: Reviewed & Not Pertinent Parental Family History Reviewed: Yes Children Family History Reviewed: Yes Sibling(s) Family History Reviewed.: Yes Medication/Allergy Home Medications: Levothyroxine Sodium [Synthroid 0.112 mg Tablet] 0.112 mg PO Q6AM 03/11/17 Losartan Potassium [Cozaar 50 mg Tablet] 50 mg PO DAILY 03/11/17 Montelukast Sodium [Singulair 10 mg Tablet] 10 mg PO QHS 03/11/17 Pantoprazole Sodium [Protonix] 40 mg PO Q6AM 03/11/17 Sertraline HCl [Zoloft 50 mg Tablet] 100 mg PO DAILY 03/11/17 Magnesium Oxide [Mag-Ox 400 mg Tablet] 250 mg PO BID 03/14/17 Albuterol Sulfate [Albuterol Sulfate 2.5mg/3 mL] 1 vial NEB Q4HP PRN 08/01/17 Albuterol Sulfate [Ventolin 0.083% Neb 2.5 mg/3 ml Ampul] 1 vial NEB Q4 PRN #30 vial 08/01/17 Albuterol Sulfate [Ventolin Hfa] 1 - 2 puff IH Q4 PRN 08/01/17 Ergocalciferol (Vitamin D2) [Vitamin D2] 50,000 unit PO ASDIR PRN 08/01/17 Fluticasone/Vilanterol [Breo Ellipta 100-25 Mcg INH] 1 puff IH DAILY 08/01/17 Atorvastatin Calcium 80 mg PO DAILY 11/29/17 Fenofibrate 160 mg PO QPM 11/29/17 Insulin Degludec [Tresiba Flextouch U-100] 30 units SQ QPM 11/29/17 Montelukast Sodium 10 mg PO DAILY 11/29/17 Venlafaxine HCl ER [Effexor Xr 37.5 mg Cap.sr] 37.5 mg PO DAILY 11/29/17 Allergies/Adverse Reactions: aspirin [Aspirin] Allergy (Intermediate, Verified 05/14/18 23:43) Facial edema and rash Iodinated Contrast- Oral and IV Dye [IV Dye, Iodine Containing] Allergy (Mild, Verified 05/14/18 23:43) Diarrhea Penicillins Allergy (Mild, Verified 05/14/18 23:43) Diarrhea Shellfish * [Shellfish] Allergy (Mild, Verified 05/14/18 23:43) Diarrhea DEION Inhibitors Adverse Reaction (Verified 05/14/18 23:43) cephalexin [From Keflex] Adverse Reaction (Verified 05/14/18 23:43) fish derived Adverse Reaction (Verified 05/14/18 23:43) Sulfa (Sulfonamide Antibiotics) Adverse Reaction (Verified 05/14/18 23:43) Beta thaddeus Allergy (Intermediate, Uncoded 05/14/18 23:43) Difficulty breathing Review of Systems Constitutional: ABSENT: chills, fever(s), headache(s), weight gain, weight loss Eyes: ABSENT: visual disturbances Ears: ABSENT: hearing changes Cardiovascular: PRESENT: chest pain Respiratory: PRESENT: cough, dyspnea Gastrointestinal: ABSENT: abdominal pain, constipation, diarrhea, hematemesis, hematochezia, nausea, vomiting Genitourinary: ABSENT: dysuria, hematuria Musculoskeletal: ABSENT: joint swelling Integumentary: ABSENT: rash, wounds Neurological: ABSENT: abnormal gait, abnormal speech, confusion, dizziness, focal weakness, syncope Psychiatric: ABSENT: anxiety, depression, homidical ideation, suicidal ideation Endocrine: ABSENT: cold intolerance, heat intolerance, polydipsia, polyuria Hematologic/Lymphatic: ABSENT: easy bleeding, easy bruising Physical Exam Vital Signs: Temp Pulse Resp BP Pulse Ox 97.6 F 118 H 19 136/71 H 95 05/15/18 06:22 05/14/18 23:17 05/15/18 07:00 05/15/18 06:00 05/15/18 06:52 Intake & Output 05/14/18 05/15/18 05/16/18 06:59 06:59 06:59 Weight 79.379 kg General appearance: PRESENT: no acute distress, well-developed, well-nourished Head exam: PRESENT: atraumatic, normocephalic Eye exam: PRESENT: conjunctiva pink, EOMI, PERRLA. ABSENT: scleral icterus Ear exam: PRESENT: normal external ear exam Mouth exam: PRESENT: moist, tongue midline Neck exam: ABSENT: carotid bruit, JVD, lymphadenopathy, thyromegaly Respiratory exam: PRESENT: clear to auscultation jadyn. ABSENT: rales, rhonchi, wheezes Cardiovascular exam: PRESENT: RRR. ABSENT: diastolic murmur, rubs, systolic murmur Pulses: PRESENT: normal dorsalis pedis pul Vascular exam: PRESENT: normal capillary refill GI/Abdominal exam: PRESENT: normal bowel sounds, soft. ABSENT: distended, guard ing, mass, organolmegaly, rebound, tenderness Rectal exam: PRESENT: deferred Extremities exam: PRESENT: full ROM. ABSENT: calf tenderness, clubbing, pedal edema Neurological exam: PRESENT: alert, awake, oriented to person, oriented to place, oriented to time, oriented to situation, CN II-XII grossly intact. ABSENT: motor sensory deficit Psychiatric exam: PRESENT: appropriate affect, normal mood. ABSENT: homicidal ideation, suicidal ideation Skin exam: PRESENT: dry, intact, warm. ABSENT: cyanosis, rash Results Laboratory Results: 05/15/18 00:20 05/15/18 00:20 05/15/18 05/15/18 05/15/18 00:20 00:20 02:15 WBC 10.1 RBC 4.31 Hgb 12.5 Hct 37.1 MCV 86 MCH 28.9 MCHC 33.6 RDW 14.5 H Plt Count 277 Seg Neutrophils % 83.6 H Lymphocytes % 10.0 L Monocytes % 5.9 Eosinophils % 0.1 Basophils % 0.4 Absolute Neutrophils 8.5 H Absolute Lymphocytes 1.0 Absolute Monocytes 0.6 Absolute Eosinophils 0.0 Absolute Basophils 0.0 VBG pH 7.41 VBG pCO2 39.3 VBG HCO3 24.3 VBG Base Excess -0.2 Sodium 138.0 Potassium 4.6 Chloride 100 Carbon Dioxide 26 Anion Gap 12 BUN 22 H Creatinine 1.13 Est GFR ( Amer) 56 L Est GFR (Non-Af Amer) 46 L Glucose 281 H Calcium 9.5 Total Bilirubin 0.3 AST 23 ALT 30 Alkaline Phosphatase 123 Total Protein 7.2 Albumin 4.2 05/15/18 05/15/18 00:20 04:19 Troponin I 0.053 0.119 Impressions: Chest X-Ray 05/14/18 23:16 IMPRESSION: Clear lungs. Lung Scan-VQ NM 05/15/18 04:36 IMPRESSION: NORMAL VENTILATION-PERFUSION LUNG SCAN. NEGATIVE FOR PULMONARY EMBOLI. Assessment and Plan - Diagnosis (1) Chest pain Is this a current diagnosis for this admission?: Yes Plan: We will request subset of troponin. We will keep her for observation telemetry unit and cardiac stress test in the morning. We will manage her chest pain with nitroglycerin and if needed morphine sulfate IV. (2) Hypothyroidism (acquired) Is this a current diagnosis for this admission?: Yes Plan: Continue her Synthroid. (3) Type 2 diabetes mellitus Is this a current diagnosis for this admission?: Yes Plan: Continue her home medication and put her on sliding scale. (4) Hypertension Qualifiers: Hypertension type: essential hypertension Qualified Code(s): I10 - Essential (primary) hypertension Is this a current diagnosis for this admission?: Yes Plan: Continue her home medication (5) Hyperlipidemia Qualifiers: Hyperlipidemia type: unspecified Qualified Code(s): E78.5 - Hyperlipidemia, unspecified Is this a current diagnosis for this admission?: Yes Plan: Continue her home medication (6) Bronchial asthma Is this a current diagnosis for this admission?: Yes Plan: In remission (7) Irritable bowel syndrome Is this a current diagnosis for this admission?: Yes Plan: Stable.
[2018-05-15] MEDS ORDERED: ONDANSETRON HCL INJ/PF 4 MG/2 ML SDV IV PRN ×2 (09:41→11:30)
[2018-05-15] MEDS ORDERED: DEXTROSE 40% GEL 15 GM TUBE PO PRN ×2 (09:47)
[2018-05-15] MEDS ORDERED: GLUCAGON,HUMAN RECOMB 1 MG INJ IM PRN (09:47)
[2018-05-15] MEDS ORDERED: DEXTROSE 50%-WATER 25 GM/50 ML DISP.SYRIN IV PRN ×2 (09:47)
[2018-05-15] MEDS ORDERED: ENOXAPARIN SODIUM INJ 30 MG/0.3 ML DISP.SYRIN SUBCUT SCH (10:00)
[2018-05-15] MEDS: FAMOTIDINE 20 MG TABLET PO SCH ×2 (10:34→22:10)
[2018-05-15] MEDS ORDERED: CLOPIDOGREL BISULFATE 300 MG TABLET PO ONE ×2 (11:19→14:00)
[2018-05-15] MEDS ORDERED: ENOXAPARIN SODIUM INJ 60 MG/0.6 ML DISP.SYRIN SUBCUT ONE (11:30)
[2018-05-15] MEDS: INSULIN LISPRO 100 UNIT/ML 3 ML VIAL SUBCUT SCH ×3 (13:49→22:34)
[2018-05-15] MEDS: METOPROLOL TARTRATE 50 MG TABLET PO SCH ×2 (13:49→22:10)
[2018-05-15] MEDS ORDERED: CLOPIDOGREL BISULFATE 75 MG TABLET PO ONE (14:00)
--- NOTE | 2018-05-15 14:47 | EKG REPORT ---
SEVERITY:- ABNORMAL ECG - SINUS TACHYCARDIA LVH WITH SECONDARY REPOLARIZATION ABNORMALITY : Confirmed by: Adriana Sanches MD 15-May-2018 14:45:31
[2018-05-15] MEDS: GUAIFENESIN 600 MG TABLET.SA PO SCH (16:42)
[2018-05-15] MEDS ORDERED: GUAIFENESIN 600 MG TABLET.SA PO SCH (18:00)
[2018-05-15] MEDS ORDERED: TRESIBA 100 UNIT/ML SUBCUT SCH (18:00)
[2018-05-15] MEDS: TRESIBA 100 UNIT/ML SUBCUT SCH (20:20)
[2018-05-15] MEDS: OXYCODONE-ACETAMINOPHEN 5-325 MG TABLET PO PRN (20:21)
--- NOTE | 2018-05-15 21:23 | PDOC CONSULTATION ---
Consultation-Blank Consultation: CARDIOLOGY CONSULTATION by Dr. Adriana Sanches on 05/15/2008. Patient seen at 7 PM. REASON FOR CONSULTATION: Patient with chest pain and elevated troponin I consistent with non-ST elevation OR. HISTORY OF PRESENT ILLNESS: Patient is a 83-year-old female with known history of hypertension, diabetes mellitus type 2, hypothyroidism, bronchial asthma, and history of prior pulmonary embolism, admitted with sudden onset of chest pain with shortness of breath. She states that on the night of 9 she had sudden onset of chest pain along the lower rib cage especially on the left side and was like viselike in nature and continuous lasting for a few hours. It is associated with shortness of breath. There is no palpitations. There was diaphoresis. There is no dizziness or syncope or near syncope. The patient's EKG shows LVH with strain pattern, and also elevated troponin levels. Consistent with a non-ST elevation OR. The patient denies any past such episodes. The patient denies any pedal edema. There is no prior such episodes of chest pain, and no prior history of OR. PAST MEDICAL HISTORY: She states that she has a history of coronary artery disease, but no history of OR. She denies any chest pains in a long time, and no definite anginal symptoms since a long time. She has no history of congestive heart failure. She has a history of bronchial asthma she states that which especially when the pollen count is high she gets the attacks and the last attack was a few days ago. There is no status asthmaticus by history. She has a history of hypertension, which is well controlled. She also has a history of diabetes mellitus, hypothyroidism, and also chronic kidney disease. There is no history of TIA CVA. The patient has a prior history of GI bleeds. This most likely secondary to diverticulosis, and internal hemorrhoids. This diagnosed by colonoscopy in November 2017. She also has a history of generalized osteoarthritis. But no collagen vascular disease. There is no history of anxiety or depression. Next PAST SURGICAL HISTORY: Appendectomy, hysterectomy, tonsillectomy, tubal ligation, she is also had sigmoid colectomy for diverticular bleed. She also states that the hysterectomy was complicated by a dentist and being nicked, and subsequently wound dehiscence and in a hospital stay for some time. ALLERGIES: The patient states she is allergic to aspirin. This is not a true allergy. This is most likely secondary to history of intermittent GI bleeds. She also states she is allergic to DEION inhibitor due to cough. But no angioedema. She also states she is allergic to beta-blockers, but does not know the reason. But the patient did receive beta-blockers this admission without any problems. FAMILY HISTORY is positive for hypertension diabetes, and negative for coronary artery disease. SOCIAL HISTORY: She has a remote history of smoking. She has not smoked in a long time. DISPOSITION: The patient is a full code. Her daughter is a surrogate healthcare decision maker. REVIEW OF SYSTEMS: CONSTITUTIONAL: Denies any fever chills or rigors. Does have some fatigue and generalized malaise. She has some mild generalized weakness. HEAD: No history of headaches or head injury. EYES: No history of amblyopia diplopia. No history of amaurosis fugax. EARS: No history of hearing loss. No history of tinnitus. No history of vertigo. NOSE: No history of nosebleeds. No history of hayfever. MOUTH: No history of altered taste sensation. No ulcers in the mouth. THROAT: No history of odynophagia or dysphagia. No history of recurrence sore throats. SKIN: No history of psoriasis. No history of eczema. No jaundice. No pruritus. NECK: No history of neck swelling. No history of neck pain. No history of goiter. LUNGS: History of intermittent mild asthma uncomplicated. No history of COPD. No history of sleep apnea. No history of pleuritic chest pain. No hemoptysis. Remote history of pulmonary embolism. She has had a mild intermittent cough, without sputum production. The patient's VQ scan this admission has been negative for pulmonary emboli. She has no history of sleep apnea. CARDIAC: States that she has a history of coronary artery disease, but does not quantify exactly as to what the lesion severity years. No history of OR. No history of chest pain or anginal symptoms as long time. History is the first time that she had chest pain. No prior history of OR. No history of congestive heart failure. No history of palpitations, near-syncope or syncope. No history of PND orthopnea or leg edema. No history of syncope. ENDOCRINE: No history of hirsutism. No excessive sweating. History of diabetes mellitus. No history of polydipsia polyuria. No history of heat or cold intolerance. No history of ear hirsutism. GASTROINTESTINAL: History of irritable bowel syndrome present. History of intermittent rectal bleeding. She had a colonoscopy in November 2017 and this showed internal hemorrhoids and diverticulosis of, most likely the cause of the patient's bleeding. There is no history of jaundice. No history of fatty food intolerance. No history of altered bowel movements. No abdominal pain. History of irritable bowel syndrome. She states is well controlled. MUSCULOSKELETAL: History of osteoarthritis generalized present no history of collagen vascular disease. RENAL: History of chronic kidney disease stage not known. She has no symptoms of hematuria pyuria or dysuria. 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 No history of headaches migraines or seizures. PSYCHIATRIC: No history of anxiety or depression. No history of suicidal ideation. No homicidal ideation. VASCULAR: No history of calf or buttock claudication. She has a remote history of DVT which led to a PE. Hematological: No history of clotting disorders. No history of blood dyscrasias. PHYSICAL EXAMINATION: The patient is slightly overweight. In no acute distress. At present she has no chest pain or discomfort, and no shortness of breath she is well-groomed. She appears to be her stated age. Selected Entries 05/15/18 19:25 Temperature 98.2 F Temperature Oral Source Pulse Rate 75 Respiratory 18 Rate Blood Pressure 136/77 H Blood Pressure 96 Mean BP Location Right Arm BP Position Supine O2 Sat by Pulse 95 Oximetry Oxygen Delivery Room Air Method HEAD: Is atraumatic normocephalic. EYES: Pupils are equal round regular reactive to light accommodation. Extraocular movements are normal. There is no conjunctival pallor. There is no scleral icterus. EARS: Tympanic membranes are intact. External auditory canals are clear. NOSE: There is no deviated nasal septum. There is no inflammation nasal mucous membrane. MOUTH: Mucous members of mouth are moist. Tongue is moist. There is no ulcers in the mouth. There is no bleeding from the gums. THROAT: There is no redness of the oropharynx. There is no exudates. SKIN: There is no skin rashes or skin lesions. There is no petechia or ecchymosis. NECK: Is supple. There is no JVD. There is carotid delay bilaterally, transmitted aortic stenosis murmur heard over both carotids. There are no carotid bruits. There is very muffled to absent A2. This is suggestive of significant aortic stenosis. There is no murmur of aortic regurgitation present.. There is no lymphadenopathy. There is no goiter. There is no accessory muscle respiration use. Trachea central LUNGS: Lungs are clear to auscultation percussion, without any rhonchi rales or wheezing. On palpation there is no chest wall tenderness. HEART: S1-S2 is heard. There is no S3 gallop. There is no S4 gallop. There is systolic murmur 2 /6 over the aortic area, with radiation to both carotids. A2 is absent. This is consistent with severe aortic stenosis. There is no thrill or the aortic area. There is no aortic regurgitation murmur. There is no rub .ABDOMEN: Is soft. Nontender. There is no hepatosplenomegaly. Bowel sounds are well heard. There is no tender areas to both the right masses. EXTREMITIES: Femorals are slightly diminished. There is no femoral bruits. There is a leg pulses are well felt. There is no DVT or cellulitis. There is no pedal edema. There is no calf tenderness. There is no cyanosis or clubbing. Capillary refill is normal. STEM DRYER MAINTAINER: The patient is conscious awake alert oriented x3 with no focal deficits. PSYCHIATRIC: The patient judgment insight are intact her affect is normal. EKG: Shows sinus rhythm. LVH with strain pattern. Current Medications Generic Name Dose Route Start Last Admin Trade Name Freq PRN Reason Stop Dose Admin Atorvastatin Calcium 40 mg 05/15/18 22:00 05/15/18 22:10 Lipitor 40 Mg Ta its. Blet PO 06/14/18 21:59 40 mg QHS RYAN Administration Clopidogrel Bisulfate 75 mg 05/16/18 10:00 Plavix 75 Mg Tablet PO 06/15/18 09:59 DAILY RYAN Dextrose 12.5 gm 05/15/18 09:47 Dextrose Inj 50% Syringe (25 Gm/50 Ml) IV 06/14/18 09:46 PRN PRN FOR BG 50-69 IN ALERT PATIENT A2 is muffled Protocol Dextrose 25 gm 05/15/18 09:47 Dextrose Inj 50% Syringe (25 Gm/50 Ml) IV 06/14/18 09:46 PRN PRN PER PROTOCOL Protocol Enoxaparin Sodium 60 mg 05/15/18 22:00 05/15/18 22:10 Lovenox Inj 80 Mg/0.8 Ml Disp.Syrin SUBCUT 06/14/18 21:59 60 mg Q12 RYAN Administration Famotidine 20 mg 05/15/18 10:00 05/15/18 22:10 Pepcid 20 Mg Tablet PO 06/14/18 09:59 20 mg Q12 RYAN Administration /Abs Glucagon 1 mg 05/15/18 09:47 Glucagen Inj 1. Mg Vial IM 06/14/18 09:46 PRN PRN Evaluate for BG < 70 Protocol Glucose 15 gm 05/15/18 09:47 Glutose 40% Gel 15 Gm Tube PO 06/14/18 09:46 PRN PRN FOR BG 50-69 IN ALERT PATIENT Protocol Glucose 30 gm 05/15/18 09:47 Glutose 40% Gel 15 Gm Tube PO 06/14/18 09:46 PRN PRN Hence this is significantly FOR BG < 50 IN ALERT PATIENT Protocol Guaifenesin 600 mg 05/15/18 16:30 05/15/18 16:42 Mucinex Sr 600 Mg Tablet.Sa PO 06/14/18 16:29 600 mg BID RYAN Administration Stenosis murmur Insulin Human Lispro 0 - 12 unit 05/15/18 11:00 05/15/18 22:34 Humalog Insulin 100 Unit/1 Ml 3 Ml Vial SUBCUT 06/14/18 10:59 Not Given Suggestive of severe ACHS RYAN Protocol Metoprolol Tartra aortic stenosis te 50 mg 05/15/18 11:30 05/15/18 22:10 Lopressor 50 Mg Tablet PO 06/14/18 11:29 50 mg Q12 RYAN Administration Increased. Nitroglycerin there is no aortic regurg MURMUR. Abdomen 1 gm 05/16/18 00:00 05/15/18 23:39 Nitrol 2% Ointment 1gm Packet TP 06/15/18 00:00 1 gm Q6 RYAN Administration Ondansetron HCl 4 mg 05/15/18 11:30 Zofran Inj/Pf 4 Mg/2 Ml Sdv IV 06/14/18 09:40 Q4HP PRN FOR NAUSEA/VOMITING Oxycodone/Acetaminophen 1 tab 05/15/18 09:41 05/15/18 20:21 Percocet 5-325 Mg Tablet PO 05/22/18 09:40 1 tab Q4HP PRN Administration FOR CHEST PAIN (Pom) Tresiba 1 dose 05/15/18 21:00 05/15/18 20:20 Flextouch Pen 100 SUBCUT 06/14/18 20:59 30 units Unit/Ml 3 Ml DAILY@2100 [facility] Administration Discontinued Medications Generic Name Dose Route Start Last Admin Trade Name Dannielle PRN Reason Stop Dose Admin Acetaminophen 650 mg 05/15/18 05:37 05/15/18 05:47 Tylenol 325 Mg Tablet PO 05/15/18 05:38 650 mg NOW ONE Administration Albuterol/Ipratropium 3 ml 05/15/18 00:19 05/15/18 00:52 Duoneb 3 Ml Ampul NEB 05/15/18 00:20 3 ml NOW ONE Administration Aspirin 324 mg 05/14/18 23:16 05/14/18 23:43 Aspirin 81 Mg Chewable Tablet PO 05/14/18 23:17 Not Given NOW ONE Clopidogrel Bisulfate 300 mg 05/15/18 14:00 05/15/18 15:14 Plavix 300 Mg Tablet PO 05/15/18 14:01 Not Given NOW ONE Enoxaparin Sodium 30 mg 05/15/18 10:00 05/15/18 10:34 Lovenox Inj 30 Mg/0.3 Ml Disp.Syrin SUBCUT 06/14/18 09:59 30 mg DAILY [facility] Administration Enoxaparin Sodium 50 mg 05/15/18 11:30 05/15/18 13:17 Lovenox Inj 60 Mg/0.6 Ml Disp.Syrin SUBCUT 05/15/18 11:31 Not Given NOW ONE Enoxaparin Sodium 80 mg 05/15/18 22:00 Lovenox Inj 80 Mg/0.8 Ml Disp.Syrin SUBCUT 06/14/18 21:59 Q12 [facility] Guaifenesin 600 mg 05/15/18 18:00 Mucinex Sr 600 Mg Tablet.Sa PO 06/14/18 17:59 BID [facility] Ibuprofen 400 mg 05/15/18 06:58 05/15/18 07:05 Motrin 400 Mg Tablet PO 05/15/18 06:59 400 mg NOW ONE Administration Methylprednisolone Sodium Succinate 125 mg 05/15/18 00:19 05/15/18 00:52 Solu-Medrol Inj/Pf 125 Mg/2 Ml Sdv IV 05/15/18 00:20 125 mg NOW ONE Administration Ondansetron HCl 4 mg 05/15/18 09:41 Zofran Inj/Pf 4 Mg/2 Ml Sdv IV 06/14/18 09:40 Q4HP PRN FOR NAUSEA/VOMITING (Pom) Tresiba 1 dose 05/15/18 18:00 Flextouch Pen 100 SUBCUT 06/14/18 17:59 Unit/Ml 3 Ml QPM [facility] HOME MEDICATIONS: Levothyroxine Sodium [Synthroid 0.112 mg Tablet] 0.112 mg PO Q6AM 03/11/17 Montelukast Sodium [Singulair 10 mg Tablet] 10 mg PO QHS 03/11/17 Pantoprazole Sodium [Protonix] 40 mg PO DAILY 03/11/17 Albuterol Sulfate [Ventolin Hfa] 2 puff IH Q4 PRN 08/01/17 Ergocalciferol (Vitamin D2) [Vitamin D2] 50,000 unit PO Q7D PRN 08/01/17 Fluticasone/Vilanterol [Breo Ellipta 100-25 Mcg INH] 1 puff IH DAILY 08/01/17 Atorvastatin Calcium 80 mg PO DAILY 11/29/17 Fenofibrate 160 mg PO QPM 11/29/17 Insulin Degludec [Tresiba Flextouch U-100] 30 units SQ QPM 11/29/17 Venlafaxine HCl ER [Effexor Xr 37.5 mg Cap.sr] 37.5 mg PO DAILY 11/29/17 Diclofenac Sodium [Voltaren] 100 gm TP ASDIR PRN 05/15/18 Magnesium 250 mg PO BID 05/15/18 Sodium Polystyrene Sulfonate [Kayexalate 15 Gm/60 Ml Susp 60 Ml] 15 gm PO ASDIR PRN 05/15/18 Labs- Entire Visit 05/15/18 05/15/18 05/15/18 00:20 00:20 00:20 WBC 10.1 RBC 4.31 Hgb 12.5 Hct 37.1 MCV 86 MCH 28.9 MCHC 33.6 RDW 14.5 H Plt Count 277 Seg Neutrophils % 83.6 H Lymphocytes % 10.0 L Monocytes % 5.9 Eosinophils % 0.1 Basophils % 0.4 Absolute Neutrophils 8.5 H Absolute Lymphocytes 1.0 Absolute Monocytes 0.6 Absolute Eosinophils 0.0 Absolute Basophils 0.0 VBG pH VBG pCO2 VBG HCO3 VBG Base Excess Sodium 138.0 Potassium 4.6 Chloride 100 Carbon Dioxide 26 Anion Gap 12 BUN 22 H Creatinine 1.13 Est GFR ( Amer) 56 L Est GFR (Non-Af Amer) 46 L Glucose 281 H POC Glucose Calcium 9.5 Total Bilirubin 0.3 Direct Bilirubin 0.2 Neonat Total Bilirubin Not Reportable Neonat Direct Bilirubin Not Reportable Neonat Indirect Bili Not Reportable AST 23 ALT 30 Alkaline Phosphatase 123 Troponin I 0.053 Total Protein 7.2 Albumin 4.2 05/15/18 05/15/18 05/15/18 02:15 04:19 09:50 WBC RBC Hgb Hct MCV MCH MCHC RDW Plt Count Seg Neutrophils % Lymphocytes % Monocytes % Eosinophils % Basophils % Absolute Neutrophils Absolute Lymphocytes Absolute Monocytes Absolute Eosinophils Absolute Basophils VBG pH 7.41 VBG pCO2 39.3 VBG HCO3 24.3 VBG Base Excess -0.2 Sodium Potassium Chloride Carbon Dioxide Anion Gap BUN Creatinine Est GFR ( Amer) Est GFR (Non-Af Amer) Glucose POC Glucose Calcium Total Bilirubin Direct Bilirubin Neonat Total Bilirubin Neonat Direct Bilirubin Neonat Indirect Bili AST ALT Alkaline Phosphatase Troponin I 0.119 0.134 Total Protein Albumin 05/15/18 05/15/18 05/15/18 13:33 15:11 20:49 WBC RBC Hgb Hct MCV MCH MCHC RDW Plt Count Seg Neutrophils % Lymphocytes % Monocytes % Eosinophils % Basophils % Absolute Neutrophils Absolute Lymphocytes Absolute Monocytes Absolute Eosinophils Absolute Basophils VBG pH VBG pCO2 VBG HCO3 VBG Base Excess Sodium Potassium Chloride Carbon Dioxide Anion Gap BUN Creatinine Est GFR ( Amer) Est GFR (Non-Af Amer) Glucose POC Glucose 300 H 246 H 167 H Calcium Total Bilirubin Direct Bilirubin Neonat Total Bilirubin Neonat Direct Bilirubin Neonat Indirect Bili AST ALT Alkaline Phosphatase Troponin I Total Protein Albumin Chest X-Ray 05/14/18 23:16 IMPRESSION: Clear lungs. Lung Scan-VQ NM 05/15/18 04:36 IMPRESSION: NORMAL VENTILATION-PERFUSION LUNG SCAN. NEGATIVE FOR PULMONARY EMBOLI. IMPRESSION/RECOMMENDATION: 1. Non-ST elevation OR in a patient with a history of coronary artery disease, she has multiple coronary artery risk factors. Would recommend getting a stress test on the patient with IV Lexiscan Cardiolite once the troponin levels trended down. And of course if the patient has no recurrence of chest pain. Cardiac catheterization may be at a higher risk in view of the patient's renal function and patient's age. Agree with the Lovenox at a lower renal dose of 0.75 mg/kg subcutaneously every 12 hours. Hence we will decrease the patient's Lovenox to 60 mg subcutaneously every 12 hours. Will discuss with the patient's daughter and see if we can start the patient on Brilinta, and while cautiously watch the patient for any bleeding problems. We will check an echo for the patient's wall motion of normality, LV ejection fraction, and valvular function. 2. History of coronary artery disease. Continue beta-thaddeus and Plavix. Would recommend adding nitrates. 3. Severe Aortic Stenosis by examination.: Await echo findings. 4. Hypertension: Blood pressure well controlled. 5. Diabetes mellitus: Continue antidiabetic regimen, and periodic checks of her patient's blood sugars. 6. Chronic kidney disease stage III: Would recommend nephrology consult [facility] since patient is being followed by dentistry professor in [facility]. 7. History of mild uncomplicated bronchial asthma. At present the patient does not have any wheezing. 8. Hypothyroidism: Replace with the thyroid replacement, watch out for any recurrence, or increase in the patient's anginal symptoms. 9. Hyperlipidemia: Continue statin. 10. History of intermittent rectal bleed: Most likely secondary to hemorrhoids, and most likely diverticular bleed. Medications reviewed. Medications added. Management plan discussed with attending physician on the case. Medical decision making is of high complexity. 60 minutes spent on this patient with more than 50% time spent in direct patient care. Will follow.
[2018-05-15] MEDS ORDERED: ENOXAPARIN SODIUM INJ 80 MG/0.8 ML DISP.SYRIN SUBCUT SCH (22:00)
[2018-05-15] MEDS: ATORVASTATIN CALCIUM 40 MG TABLET PO SCH (22:10)
[2018-05-15] MEDS: ENOXAPARIN SODIUM INJ 80 MG/0.8 ML DISP.SYRIN SUBCUT SCH (22:10)
[2018-05-15] MEDS: NITROGLYCERIN 2% OINTMENT 1 GM PACKET TP SCH (23:39)
[2018-05-16 05:17] LABS: ANION GAP 13 (5-19); BLOOD UREA NITROGEN 35 mg/dL (7-20); CALCIUM 9.7 mg/dL (8.4-10.2); CARBON DIOXIDE 24 mmol/L (22-30); CHLORIDE 102 mmol/L (98-107); CHOLESTEROL 177.05 mg/dL (0-200); GLUCOSE 158 mg/dL (75-110); POTASSIUM 4.5 mmol/L (3.6-5.0); SODIUM 139.2 mmol/L (137-145); TRIGLYCERIDES 327 mg/dL (<150)
[2018-05-16 05:28] LABS: DIRECT LDL 113 mg/dL (<100)
[2018-05-16 05:45] LABS: VLDL CHOLESTEROL 65.4 mg/dL (10-31)
[2018-05-16] MEDS: NITROGLYCERIN 2% OINTMENT 1 GM PACKET TP SCH ×4 (06:25→23:59)
[2018-05-16] MEDS: INSULIN LISPRO 100 UNIT/ML 3 ML VIAL SUBCUT SCH ×4 (08:48→21:29)
[2018-05-16] MEDS ORDERED: BISACODYL 10 MG SUPP.RECT PR PRN (09:40)
[2018-05-16] MEDS: PANTOPRAZOLE SODIUM 40 MG TABLET.DR PO SCH (09:45)
[2018-05-16] MEDS: METOPROLOL TARTRATE 50 MG TABLET PO SCH ×2 (09:45→21:25)
[2018-05-16] MEDS: CLOPIDOGREL BISULFATE 75 MG TABLET PO SCH (09:46)
[2018-05-16] MEDS: FAMOTIDINE 20 MG TABLET PO SCH ×2 (09:46→21:25)
[2018-05-16] MEDS: GUAIFENESIN 600 MG TABLET.SA PO SCH ×2 (09:46→17:03)
[2018-05-16] MEDS: ENOXAPARIN SODIUM INJ 80 MG/0.8 ML DISP.SYRIN SUBCUT SCH ×2 (09:49→21:25)
[2018-05-16] MEDS: VENLAFAXINE HCL 37.5 MG CAP.SR.24H PO SCH (09:53)
[2018-05-16 10:18] LABS: FREE T3 2.13 pg/mL (2.77-5.27); FREE T4 (FREE THYROXINE) 1.47 ng/dL (0.78-2.19)
[2018-05-16] MEDS: ALBUTEROL SULFATE 0.083% NEB 2.5 MG/3 ML AMPUL NEB PRN ×3 (10:30→20:08)
[2018-05-16] MEDS: FLUTICASONE/VILANTEROL 100-25 MCG/DOSE IH SCH (11:39)
[2018-05-16] MEDS: SENNOSIDES/DOCUSATE 8.6-50 MG 1 EACH TABLET PO PRN ×2 (11:40→21:25)
[2018-05-16] MEDS: LEVOTHYROXINE SODIUM 0.075 MG TABLET PO SCH (11:53)
--- NOTE | 2018-05-16 13:18 | PDOC PROGRESS REPORT ---
Subjective Progress Note for:: 05/16/18 Subjective:: This is an 83 year old female with a past medical history of type 2 diabetes mellitus, hypothyroidism, bronchial asthma, irritable bowel syndrome, history of PE, hypertension and hyperlipidemia who presented with chest pain. Her troponins trended up and she was treated for NSTEMI. She was not deemed a good candidate for cath due to her acute kidney injury. No acute event overnight. Stress test was canceled as her troponins trended up. She is currently being treated for NSTEMI. Cardiology following. She complains of coughing and chest pain motly related due to her persistent coughing. Denies SOB. Reason For Visit: CHEST PAIN Physical Exam Vital Signs: Temp Pulse Resp BP Pulse Ox 98.0 F 79 18 140/73 H 97 05/16/18 06:37 05/16/18 10:42 05/16/18 10:42 05/16/18 06:37 05/16/18 10:42 Intake & Output 05/15/18 05/16/18 05/17/18 06:59 06:59 06:59 Intake Total 472 Balance 472 Weight 175 lb 173 lb 1.006 oz General appearance: PRESENT: no acute distress, well-developed, well-nourished Head exam: PRESENT: atraumatic, normocephalic Eye exam: PRESENT: conjunctiva pink, EOMI, PERRLA. ABSENT: scleral icterus Ear exam: PRESENT: normal external ear exam Mouth exam: PRESENT: moist, tongue midline Neck exam: ABSENT: carotid bruit, JVD, lymphadenopathy, thyromegaly Respiratory exam: PRESENT: clear to auscultation jadyn. ABSENT: rales, rhonchi, wheezes Cardiovascular exam: PRESENT: RRR. ABSENT: diastolic murmur, rubs, systolic murmur Pulses: PRESENT: normal dorsalis pedis pul GI/Abdominal exam: PRESENT: normal bowel sounds, soft. ABSENT: distended, guarding, mass, organolmegaly, rebound, tenderness Rectal exam: PRESENT: deferred Extremities exam: PRESENT: full ROM. ABSENT: calf tenderness, clubbing, pedal edema Neurological exam: PRESENT: alert, awake, oriented to person, oriented to place, oriented to time, oriented to situation, CN II-XII grossly intact. ABSENT: motor sensory deficit Results Laboratory Results: 05/15/18 00:20 05/16/18 03:59 05/16/18 05/16/18 05/16/18 03:59 03:59 03:59 Sodium 139.2 Potassium 4.5 Chloride 102 Carbon Dioxide 24 Anion Gap 13 BUN 35 H Creatinine 1.54 H Est GFR ( Amer) 39 L Est GFR (Non-Af Amer) 32 L Glucose 158 H Calcium 9.7 Triglycerides 327 H Cholesterol 177.05 LDL Cholesterol Direct 113 H VLDL Cholesterol 65.4 H HDL Cholesterol 25 L TSH 0.11 L Free T4 1.47 Free T3 pg/mL 2.13 L 05/15/18 05/15/18 05/15/18 00:20 04:19 09:50 Troponin I 0.053 0.119 0.134 05/16/18 10:49 Troponin I 0.104 Impressions: Chest X-Ray 05/14/18 23:16 IMPRESSION: Clear lungs. Lung Scan-VQ NM 05/15/18 04:36 IMPRESSION: NORMAL VENTILATION-PERFUSION LUNG SCAN. NEGATIVE FOR PULMONARY EMBOLI. Assessment and Plan - Diagnosis (1) NSTEMI (non-ST elevated myocardial infarction) Is this a current diagnosis for this admission?: Yes Plan: She is currently being optimized on medications. On Lovenox 60 mg q12. Continue Plavix. She reports having aspirin allergy. Continue metoprolol and atorvast atin. Reports ACEi-induced cough. Will start Losartan. Awaiting echo. (2) Bronchial asthma Is this a current diagnosis for this admission?: Yes Plan: Not in exacerbation. Will resume home meds. (3) Hypertension Qualifiers: Hypertension type: essential hypertension Qualified Code(s): I10 - Essential (primary) hypertension Is this a current diagnosis for this admission?: Yes Plan: Controlled. Continue metoprolol. (4) Hypothyroidism (acquired) Is this a current diagnosis for this admission?: Yes Plan: Will resume Synthroid. (5) Acute kidney injury Is this a current diagnosis for this admission?: Yes Plan: Likely pre renal. Will tart Iv fluids at 75 cc/hr. Will repeat BMP. - Time Time Spent with patient: 25-34 minutes
--- NOTE | 2018-05-16 14:08 | XCELERA REPORT ---
[address] [address] Transthoracic Echocardiogram Report Name: URMILA GALEANO V Age: 83 yrs Gender: Female : 1935 Patient Status: Inpatient Patient Location: [address] [place], [place] [address] Study Date: 05/16/2018 10:57 AM Height: 65 in Weight: 173 lb BSA: 1.9 m2 Procedure: A two-dimensional transthoracic echocardiogram with color flow Doppler was performed. Clinical correlation is requested. The study was technically limited with all images being suboptimal in quality. Reason For Study: echo per cardio recommendation History: / NSTEMI. Ordering Physician: KEELY MOULTON Performed By: Rosalie Queen Interpretation Summary The left ventricle is normal in size. There is mild concentric left ventricular hypertrophy. LV EF is 60% The left ventricular ejection fraction is within normal limits. Doppler measurements suggest impaired left ventricular relaxation, which is associated with grade I/IV or mild diastolic dysfunction There is basal inferior wall mild hypokinesis There is no thrombus. The right ventricle is normal in size and function. The right atrium is normal in size The left atrial size is normal. Unable to assess ASD.VSD . or PFO. There is mild mitral stenosis There is no evidence of mitral valve prolapse. There is no vegetation seen on the mitral valve. There is a mild amount of mitral regurgitation There is severe aortic stenosis There is a peak gradient of 65 and mean gradient of 40 mm of Hg. There is no LVOT obstruction. There is a trace amount of aortic regurgitation There is no tricuspid stenosis. There is a trace amount of tricuspid regurgitation RVSP is 30 mm of Hg , with RA mean of 10. Right ventricular systolic pressure is at the upper limits of normal There is no pulmonic valvular stenosis. There is a trace amount of pulmonic regurgitation The aortic root is normal size. The inferior vena cava was not visualized There is no pericardial effusion. MMode/2D Measurements & Calculations RVDd: 2.5 cm LVIDd: 4.0 cm FS: 31.7 % Ao root diam: 2.4 cm IVSd: 1.1 cm LVIDs: 2.7 cm EDV(Teich): 70.0 ml Ao root area: 4.7 cm2 LVPWd: 1.1 cm ESV(Teich): 27.8 ml LA dimension: 3.1 cm EF(Teich): 60.2 % LVOT diam: 2.1 cm LVOT area: 3.4 cm2 Doppler Measurements & Calculations MV E max francisco: MV P1/2t max francisco: Ao V2 max: LV V1 max P.3 cm/sec 96.3 cm/sec 402.7 cm/sec 7.8 mmHg MV A max francisco: MV P1/2t: 96.9 msec Ao max PG: LV V1 mean P.8 cm/sec MVA(P1/2t): 2.3 cm2 64.9 mmHg 4.0 mmHg MV E/A: 0.75 MV dec slope: Ao V2 mean: LV V1 max: 294.8 cm/sec 139.8 cm/sec 290.8 cm/sec2 Ao mean PG: LV V1 mean: MV dec time: 0.34 sec 40.0 mmHg 99.3 cm/sec Ao V2 VTI: 84.8 cm LV V1 VTI: 29.1 cm KAITLYNN(I,D): 1.2 cm2 KAITLYNN(V,D): 1.2 cm2 SV(LVOT): 98.9 ml PA V2 max: PI end-d francisco: TR max francisco: 66.1 cm/sec 100.8 cm/sec 221.3 cm/sec PA max P.7 mmHg TR max P.6 mmHg MV P1/2t-pr_phl: 96.9 msec Left Ventricle The left ventricle is normal in size. There is mild concentric left ventricular hypertrophy. LV EF is 60%. The left ventricular ejection fraction is within normal limits. Doppler measurements suggest impaired left ventricular relaxation, which is associated with grade I/IV or mild diastolic dysfunction. There is basal inferior wall mild hypokinesis. There is no thrombus. Right Ventricle The right ventricle is normal in size and function. Atria The right atrium is normal in size. The left atrial size is normal. Unable to assess ASD.VSD . or PFO. Mitral Valve There is moderate mitral annular calcification. There is no evidence of mitral valve prolapse. There is no vegetation seen on the mitral valve. There is mild mitral stenosis. There is a mild amount of mitral regurgitation. Aortic Valve There is no aortic valvular vegetation. There is severe aortic stenosis. There is a peak gradient of 65 and mean gradient of 40 mm of Hg. There is no LVOT obstruction. There is a trace amount of aortic regurgitation. Tricuspid Valve There is no tricuspid stenosis. There is a trace amount of tricuspid regurgitation. RVSP is 30 mm of Hg , with RA mean of 10. Right ventricular systolic pressure is at the upper limits of normal. Pulmonic Valve There is no pulmonic valvular stenosis. There is a trace amount of pulmonic regurgitation. Great Vessels The aortic root is normal size. The inferior vena cava was not visualized. Effusions There is no pericardial effusion. : KEELY MOULTON > Adriana Sanches
--- NOTE | 2018-05-16 20:56 | EKG REPORT ---
SEVERITY:- BORDERLINE ECG - SINUS RHYTHM PROBABLE LEFT ATRIAL ABNORMALITY BORDERLINE T ABNORMALITIES, ANT-LAT LEADS : Confirmed by: Adriana Sanches MD 16-May-2018 20:55:25
[2018-05-16] MEDS: ATORVASTATIN CALCIUM 40 MG TABLET PO SCH (21:25)
[2018-05-16] MEDS: TRESIBA 100 UNIT/ML SUBCUT SCH (21:26)
[2018-05-16] MEDS: OXYCODONE-ACETAMINOPHEN 5-325 MG TABLET PO PRN (21:28)
[2018-05-16] MEDS: MONTELUKAST SODIUM 10 MG TABLET PO SCH (21:31)
[2018-05-17 05:07] LABS: ANION GAP 11 (5-19); BLOOD UREA NITROGEN 32 mg/dL (7-20); CALCIUM 9.5 mg/dL (8.4-10.2); CARBON DIOXIDE 22 mmol/L (22-30); CHLORIDE 104 mmol/L (98-107); GLUCOSE 111 mg/dL (75-110); SODIUM 137.4 mmol/L (137-145)
[2018-05-17] MEDS: NITROGLYCERIN 2% OINTMENT 1 GM PACKET TP SCH ×2 (05:21→13:36)
[2018-05-17] MEDS: LEVOTHYROXINE SODIUM 0.075 MG TABLET PO SCH (05:21)
[2018-05-17] MEDS ORDERED: LEVOTHYROXINE SODIUM 0.112 MG TABLET PO SCH (06:00)
[2018-05-17] MEDS: INSULIN LISPRO 100 UNIT/ML 3 ML VIAL SUBCUT SCH ×4 (08:48→21:17)
[2018-05-17] MEDS: METOPROLOL TARTRATE 50 MG TABLET PO SCH ×2 (09:26→21:16)
[2018-05-17] MEDS: CLOPIDOGREL BISULFATE 75 MG TABLET PO SCH (09:26)
[2018-05-17] MEDS: PANTOPRAZOLE SODIUM 40 MG TABLET.DR PO SCH (09:27)
[2018-05-17] MEDS: ENOXAPARIN SODIUM INJ 80 MG/0.8 ML DISP.SYRIN SUBCUT SCH (09:27)
[2018-05-17] MEDS: GUAIFENESIN 600 MG TABLET.SA PO SCH ×2 (09:27→17:15)
[2018-05-17] MEDS: VENLAFAXINE HCL 37.5 MG CAP.SR.24H PO SCH (09:27)
[2018-05-17] MEDS: FLUTICASONE/VILANTEROL 100-25 MCG/DOSE IH SCH (09:27)
[2018-05-17] MEDS: FAMOTIDINE 20 MG TABLET PO SCH ×2 (09:27→21:16)
[2018-05-17] MEDS ORDERED: NA PHOS,M-B/NA PHOS,DI-BA (ADULT) 133 ML ENEMA PR ONE (09:30)
[2018-05-17] MEDS ORDERED: LOSARTAN POTASSIUM 50 MG TABLET PO SCH (10:00)
[2018-05-17] MEDS: ALBUTEROL SULFATE 0.083% NEB 2.5 MG/3 ML AMPUL NEB PRN ×3 (11:54→20:27)
[2018-05-17] MEDS: NORMAL SALINE 1000 ML 1,000 ML IV PRN (12:00)
--- NOTE | 2018-05-17 12:01 | PDOC PROGRESS REPORT ---
Subjective Progress Note for:: 05/17/18 Subjective:: This is an 83 year old female with a past medical history of type 2 diabetes mellitus, hypothyroidism, bronchial asthma, irritable bowel syndrome, history of PE, hypertension and hyperlipidemia who presented with chest pain. Her troponins trended up and she was treated for NSTEMI. She was not deemed a good candidate for cath due to her acute kidney injury. 05/16: Stress test was canceled as her troponins trended up. She is currently being treated for NSTEMI. Cardiology following. She complains of coughing and chest pain mostly related due to her persistent coughing. Denies SOB. 05/17: No acute event overnight. She denies having chest pain or SOB today. Still complains of being constipated. Reason For Visit: CHEST PAIN Physical Exam Vital Signs: Temp Pulse Resp BP Pulse Ox 98.1 F 74 16 108/61 94 05/17/18 07:23 05/17/18 07:23 05/17/18 07:23 05/17/18 07:23 05/17/18 07:23 Intake & Output 05/16/18 05/17/18 05/18/18 06:59 06:59 06:59 Intake Total 472 237 Balance 472 237 Weight 173 lb 1.006 oz 174 lb 13.225 oz General appearance: PRESENT: no acute distress, well-developed, well-nourished Head exam: PRESENT: atraumatic, normocephalic Eye exam: PRESENT: conjunctiva pink, EOMI, PERRLA. ABSENT: scleral icterus Ear exam: PRESENT: normal external ear exam Mouth exam: PRESENT: moist, tongue midline Neck exam: ABSENT: carotid bruit, JVD, lymphadenopathy, thyromegaly Respiratory exam: PRESENT: clear to auscultation jadyn. ABSENT: rales, rhonchi, wheezes Cardiovascular exam: PRESENT: RRR, systolic murmur. ABSENT: diastolic murmur, rubs Pulses: PRESENT: normal dorsalis pedis pul GI/Abdominal exam: PRESENT: normal bowel sounds, soft. ABSENT: distended, guarding, mass, organolmegaly, rebound, tenderness Rectal exam: PRESENT: deferred Extremities exam: PRESENT: full ROM. ABSENT: calf tenderness, clubbing, pedal edema Neurological exam: PRESENT: alert, awake, oriented to person, oriented to place, oriented to time, oriented to situation, CN II-XII grossly intact. ABSENT: motor sensory deficit Results Laboratory Results: 05/15/18 00:20 05/17/18 03:44 05/17/18 03:44 Sodium 137.4 Potassium 4.0 Chloride 104 Carbon Dioxide 22 Anion Gap 11 BUN 32 H Creatinine 1.58 H Est GFR ( Amer) 38 L Est GFR (Non-Af Amer) 31 L Glucose 111 H Calcium 9.5 05/15/18 05/15/18 05/15/18 00:20 04:19 09:50 Troponin I 0.053 0.119 0.134 05/16/18 10:49 Troponin I 0.104 Impressions: Chest X-Ray 05/14/18 23:16 IMPRESSION: Clear lungs. Lung Scan-VQ NM 05/15/18 04:36 IMPRESSION: NORMAL VENTILATION-PERFUSION LUNG SCAN. NEGATIVE FOR PULMONARY EMBOLI. Assessment and Plan - Diagnosis (1) NSTEMI (non-ST elevated myocardial infarction) Is this a current diagnosis for this admission?: Yes Plan: She is currently being optimized on medications. On Lovenox 60 mg q12. Continue Plavix. She reports having aspirin allergy. Continue metoprolol and atorvastatin. Reports ACEi-induced cough. Will start Losartan. Awaiting echo. 05/17: Echo shows normal EF with no motion wall abnormalities but also revealed severe aortic stenosis. Continue Lovenox for one more day. Continue metoprolol and statin. (2) Acute kidney injury Is this a current diagnosis for this admission?: Yes Plan: Likely pre renal. Will start IV fluids at 75 cc/hr. Will repeat BMP. 05/17: Creatinine remain at 1.5. IV fluids ordered yesterday but was not started. RN to start IV fluids now. (3) Bronchial asthma Is this a current diagnosis for this admission?: Yes Plan: Not in exacerbation. Home meds resumed. (4) Hypertension Qualifiers: Hypertension type: essential hypertension Qualified Code(s): I10 - Essential (primary) hypertension Is this a current diagnosis for this admission?: Yes Plan: Controlled. Continue metoprolol. (5) Hypothyroidism (acquired) Is this a current diagnosis for this admission?: Yes Plan: Continue Synthroid. (6) Aortic stenosis Is this a current diagnosis for this admission?: Yes Plan: Dsicussed echo results with patient. She expressed she is not interested in pursuing surgery or intervention for her . Recommended seeing outpatient CT surgery to discuss options like TAVR and she says she will think about these options when she gets home. - Time Time Spent with patient: 15-24 minutes
[2018-05-17] MEDS: POLYETHYLENE GLYCOL 3350 POWDER 17 GM/1 PACKET PO SCH (14:58)
[2018-05-17] MEDS ORDERED: MAGNESIUM CITRATE 296 ML BOTTLE PO ONE (17:30)
[2018-05-17] MEDS: MONTELUKAST SODIUM 10 MG TABLET PO SCH (21:16)
[2018-05-17] MEDS: ATORVASTATIN CALCIUM 40 MG TABLET PO SCH (21:16)
[2018-05-17] MEDS: AMLODIPINE BESYLATE 2.5 MG TABLET PO SCH (21:16)
[2018-05-17] MEDS: RANOLAZINE 500 MG TAB.SR.12H PO SCH (21:18)
[2018-05-17] MEDS: TRESIBA 100 UNIT/ML SUBCUT SCH (21:21)
--- NOTE | 2018-05-17 22:35 | Progress Note ---
Provider Note Provider Note: CARDIOLOGY PROGRESS NOTE by Dr. Adriana Sanches on 05/17/2018. Subjective: The patient denies any chest pain or discomfort. There is no shortness of breath. There is no wheezing or acute asthma attack. There is no shortness of breath. There is no PND orthopnea. There is no arrhythmias seen on the monitor. There is no leg edema. There is no TIA or CVA symptoms. PHYSICAL EXAMINATION: The patient is slightly overweight, but is well-nourished. In no acute distress. Selected Entries 05/17/18 15:26 Temperature 97.7 F Temperature Oral Source Pulse Rate 71 Respiratory 18 Rate Blood Pressure 131/74 H Blood Pressure 93 Mean BP Location Right Arm BP Position Supine O2 Sat by Pulse 97 Oximetry Oxygen Delivery Room Air Method HEAD: Is atraumatic normocephalic. EYES: Pupils are equal round regular reactive to light accommodation. Extraocular movements are normal. There is no conjunctival pallor. There is no scleral icterus. EARS: Tympanic membranes are intact. External auditory canals are clear. NOSE: There is no deviated nasal septum. There is no inflammation nasal mucous membrane. MOUTH: Mucous members of mouth are moist. Tongue is moist. There is no ulcers in the mouth. There is no bleeding from the gums. THROAT: There is no redness of the oropharynx. There is no exudates. SKIN: There is no skin rashes or skin lesions. There is no petechia or ecchymosis. NECK: Is supple. There is no JVD. There is carotid delay bilaterally, transmitted aortic stenosis murmur heard over both carotids. There are no carotid bruits. There is very muffled to absent A2. This is suggestive of significant aortic stenosis. There is no murmur of aortic regurgitation present.. There is no lymphadenopathy. There is no goiter. There is no accessory muscle respiration use. Trachea central LUNGS: Lungs are clear to auscultation percussion, without any rhonchi rales or wheezing. On palpation there is no chest wall tenderness. HEART: S1-S2 is heard. There is no S3 gallop. There is no S4 gallop. There is systolic murmur 2 /6 over the aortic area, with radiation to both carotids. A2 is absent. This is consistent with severe aortic stenosis. There is no thrill or the aortic area. There is no aortic regurgitation murmur. There is no rub .ABDOMEN: Is soft. Nontender. There is no hepatosplenomegaly. Bowel sounds are well heard. There is no tender areas to both the right masses. EXTREMITIES: Femorals are slightly diminished. There is no femoral bruits. There is a leg pulses are well felt. There is no DVT or cellulitis. There is no pedal edema. There is no calf tenderness. There is no cyanosis or clubbing. Capillary refill is normal. ANIMAL DAYCARE PROVIDER: The patient is conscious awake alert oriented x3 with no focal deficits. PSYCHIATRIC: The patient judgment insight are intact her affect is normal. 05/17/18 03:44 Sodium 137.4 Potassium 4.0 Chloride 104 Carbon Dioxide 22 Anion Gap 11 BUN 32 H Creatinine 1.58 H Est GFR ( Amer) 38 L Est GFR (Non-Af Amer) 31 L Glucose 111 H Calcium 9.5 IMPRESSION/RECOMMENDATION: 1. Non-ST elevation MT in a patient with a history of coronary artery disease, she has multiple coronary artery risk factors. Would recommend getting a stress test on the patient with IV Lexiscan Cardiolite once the troponin levels trended down. And of course if the patient has no recurrence of chest pain. Cardiac catheterization may be at a higher risk in view of the patient's renal function and patient's age. The patient is a 48 hours of Lovenox. We will discontinue the patient's Lovenox. Also the patient's blood pressure dropping we will stop the patient's nitroglycerin paste. We will start the patient on Norvasc 2.5 mg p.o. every 12 hours and also Ranexa at a renal dose of 500 mg p.o. twice daily 2. History of coronary artery disease. Continue beta-thaddeus and Plavix. Would recommend nitrates. Stopping nitrates, and started the patient on Ranexa and amlodipine. 3. Severe Aortic Stenosis by examination.: Echo shows moderate to severe aortic stenosis. 4. Hypertension: Blood pressure well controlled. 5. Diabetes mellitus: Continue antidiabetic regimen, and periodic checks of her patient's blood sugars. 6. 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 7. History of mild uncomplicated bronchial asthma. At present the patient does not have any wheezing. 8. Hypothyroidism: Replace with the thyroid replacement, watch out for any recurrence, or increase in the patient's anginal symptoms. 9. Hyperlipidemia: Continue statin. 10. History of intermittent rectal bleed: Most likely secondary to hemorrhoids, and most likely diverticular bleed. The patient has not had bleeding this admission, the patient also has not had a bowel movement. We will address the patient's constipation. Medications reviewed. Medications added. Management plan discussed with attending physician on the case. Medical decision making is of high complexity. Discussed with the patient and the daughter that the patient at present is stable. Since patient has no heart failure or anginal symptoms, and in view of the the patient's renal dysfunction at present would not recommend the patient to have a cardiac catheterization. Also would maximize medical treatment. Also in view of the aortic stenosis would not do IV Lexiscan, at present, since the patient is chest pain-free. This is since Lexiscan may be at a higher risk for complications due to the patient's aortic stenosis. Will have the patient see Dr. Ruiz in [place] as an outpatient for possible later outpatient management of the patient's aortic stenosis and and coronary artery disease. 50 minutes spent has been patient with more than 50% of time spent in direct patient care. Will follow.
[2018-05-18] MEDS: NORMAL SALINE 1000 ML 1,000 ML IV PRN ×2 (01:15→15:30)
[2018-05-18] MEDS: LEVOTHYROXINE SODIUM 0.075 MG TABLET PO SCH (05:43)
[2018-05-18] MEDS: INSULIN LISPRO 100 UNIT/ML 3 ML VIAL SUBCUT SCH ×4 (07:56→21:24)
[2018-05-18] MEDS: AMLODIPINE BESYLATE 2.5 MG TABLET PO SCH ×2 (09:22→21:18)
[2018-05-18] MEDS: PANTOPRAZOLE SODIUM 40 MG TABLET.DR PO SCH (09:22)
[2018-05-18] MEDS: FLUTICASONE/VILANTEROL 100-25 MCG/DOSE IH SCH (09:22)
[2018-05-18] MEDS: FAMOTIDINE 20 MG TABLET PO SCH ×2 (09:22→21:18)
[2018-05-18] MEDS: GUAIFENESIN 600 MG TABLET.SA PO SCH ×2 (09:23→17:35)
[2018-05-18] MEDS: CLOPIDOGREL BISULFATE 75 MG TABLET PO SCH (09:23)
[2018-05-18] MEDS: LOSARTAN POTASSIUM 50 MG TABLET PO SCH (09:23)
[2018-05-18] MEDS: METOPROLOL TARTRATE 50 MG TABLET PO SCH ×2 (09:23→21:19)
[2018-05-18] MEDS: VENLAFAXINE HCL 37.5 MG CAP.SR.24H PO SCH (09:23)
[2018-05-18] MEDS: RANOLAZINE 500 MG TAB.SR.12H PO SCH ×2 (09:24→21:21)
[2018-05-18] MEDS: POLYETHYLENE GLYCOL 3350 POWDER 17 GM/1 PACKET PO SCH (09:25)
[2018-05-18] MEDS: ENOXAPARIN SODIUM INJ 30 MG/0.3 ML DISP.SYRIN SUBCUT SCH (09:29)
[2018-05-18] MEDS ORDERED: ENOXAPARIN SODIUM INJ 80 MG/0.8 ML DISP.SYRIN SUBCUT SCH (10:00)
[2018-05-18] MEDS: ALBUTEROL SULFATE 0.083% NEB 2.5 MG/3 ML AMPUL NEB PRN ×2 (10:30→16:35)
[2018-05-18 10:31] LABS: ANION GAP 10 (5-19); BLOOD UREA NITROGEN 28 mg/dL (7-20); CALCIUM 9.1 mg/dL (8.4-10.2); CARBON DIOXIDE 21 mmol/L (22-30); CHLORIDE 107 mmol/L (98-107); GLUCOSE 209 mg/dL (75-110); POTASSIUM 4.4 mmol/L (3.6-5.0); SODIUM 138.2 mmol/L (137-145)
--- NOTE | 2018-05-18 17:00 | PDOC PROGRESS REPORT ---
Subjective Progress Note for:: 05/18/18 Subjective:: This is an 83 year old female with a past medical history of type 2 diabetes mellitus, hypothyroidism, bronchial asthma, irritable bowel syndrome, history of PE, hypertension and hyperlipidemia who presented with chest pain. Her troponins trended up and she was treated for NSTEMI. She was not deemed a good candidate for cath due to her acute kidney injury. 05/16: Stress test was canceled as her troponins trended up. She is currently being treated for NSTEMI. Cardiology following. She complains of coughing and chest pain mostly related due to her persistent coughing. Denies SOB. 05/17: She denies having chest pain or SOB today. Still complains of being constipated. 05/18: No acute event overnight. Denies chest pain or SOB. Will discontinue therapeutic Lovenox today. Reason For Visit: NSTEMI,CHEST PAIN Physical Exam Vital Signs: Temp Pulse Resp BP Pulse Ox 97.3 F 64 18 100/61 100 05/18/18 14:55 05/18/18 14:55 05/18/18 14:55 05/18/18 14:55 05/18/18 14:55 Intake & Output 05/17/18 05/18/18 05/19/18 06:59 06:59 06:59 Intake Total 237 2005 1236 Output Total 0 Balance 237 2005 1236 Weight 174 lb 13.225 oz 171 lb 4.787 oz General appearance: PRESENT: no acute distress, well-developed, well-nourished Head exam: PRESENT: atraumatic, normocephalic Eye exam: PRESENT: conjunctiva pink, EOMI, PERRLA. ABSENT: scleral icterus Ear exam: PRESENT: normal external ear exam Mouth exam: PRESENT: moist, tongue midline Neck exam: ABSENT: carotid bruit, JVD, lymphadenopathy, thyromegaly Respiratory exam: PRESENT: clear to auscultation jadyn. ABSENT: rales, rhonchi, wheezes Cardiovascular exam: PRESENT: RRR, systolic murmur. ABSENT: rubs Pulses: PRESENT: normal dorsalis pedis pul GI/Abdominal exam: PRESENT: normal bowel sounds, soft. ABSENT: distended, guarding, mass, organolmegaly, rebound, tenderness Rectal exam: PRESENT: deferred Neurological exam: PRESENT: alert, awake, oriented to person, oriented to place, oriented to time, oriented to situation, CN II-XII grossly intact. ABSENT: motor sensory deficit Results Laboratory Results: 05/15/18 00:20 05/18/18 09:36 05/18/18 09:36 Sodium 138.2 Potassium 4.4 Chloride 107 Carbon Dioxide 21 L Anion Gap 10 BUN 28 H Creatinine 1.25 Est GFR ( Amer) 50 L Est GFR (Non-Af Amer) 41 L Glucose 209 H Calcium 9.1 05/15/18 05/15/18 05/15/18 00:20 04:19 09:50 Troponin I 0.053 0.119 0.134 05/16/18 10:49 Troponin I 0.104 Impressions: Chest X-Ray 05/14/18 23:16 IMPRESSION: Clear lungs. Lung Scan-VQ NM 05/15/18 04:36 IMPRESSION: NORMAL VENTILATION-PERFUSION LUNG SCAN. NEGATIVE FOR PULMONARY EMBOLI. Assessment and Plan - Diagnosis (1) NSTEMI (non-ST elevated myocardial infarction) Is this a current diagnosis for this admission?: Yes Plan: She is currently being optimized on medications. On Lovenox 60 mg q12. Continue Plavix. She reports having aspirin allergy. Continue metoprolol and atorvastatin. Reports ACEi-induced cough. Will start Losartan. Awaiting echo. 05/17: Echo shows normal EF with no motion wall abnormalities but also revealed severe aortic stenosis. Continue Lovenox for one more day. Continue metoprolol and statin. 05/18: Lovenox switched to prophylactic dose. (2) Acute kidney injury Is this a current diagnosis for this admission?: Yes Plan: Likely pre renal. Will start IV fluids at 75 cc/hr. Will repeat BMP. 05/17: Creatinine remain at 1.5. IV fluids ordered yesterday but was not started. RN to start IV fluids now. 05/18: Improving with IV fluids. (3) Bronchial asthma Is this a current diagnosis for this admission?: Yes Plan: Not in exacerbation. Home meds resumed. (4) Hypertension Qualifiers: Hypertension type: essential hypertension Qualified Code(s): I10 - Essential (primary) hypertension Is this a current diagnosis for this admission?: Yes Plan: Controlled. Continue metoprolol. (5) Hypothyroidism (acquired) Is this a current diagnosis for this admission?: Yes Plan: Continue Synthroid. (6) Aortic stenosis Is this a current diagnosis for this admission?: Yes Plan: Dsicussed echo results with patient. She expressed she is not interested in pursuing surgery or intervention for her . Recommended seeing outpatient CT surgery to discuss options like TAVR and she says she will think about these options when she gets home. - Time Time Spent with patient: 15-24 minutes
--- NOTE | 2018-05-18 18:28 | RADIOLOGY REPORT (SQ) ---
EXAM DESCRIPTION: KUB/ABDOMEN (SINGLE VIEW) COMPLETED DATE/TIME: 05/18/2018 6:16 pm REASON FOR STUDY: distended, diarrhea, rule out ileus or obstruction COMPARISON: 01/07/2017 and earlier NUMBER OF VIEWS: One view. TECHNIQUE: Supine radiographic image of the abdomen acquired. LIMITATIONS: Entirety the abdomen is not included on the field of view. FINDINGS: BOWEL GAS PATTERN: Paucity of gas within the small bowel. Few air-filled nondilated loops of large bowel. CALCIFICATIONS: No suspicious calcifications. SOFT TISSUES: No gross mass or suggestion of organomegaly. HARDWARE: None in the abdomen. BONES: No acute fracture. No worrisome bone lesions. OTHER: No other significant finding. IMPRESSION: No radiographic findings of an acute intra-abdominal process. TECHNICAL DOCUMENTATION: JOB ID: [id number] [email or web address]- All Rights Reserved Reading location - IP/workstation name: [email or web address]
[2018-05-18] MEDS ORDERED: POLYETHYLENE GLYCOL 3350 POWDER 17 GM/1 PACKET PO PRN (19:38)
--- NOTE | 2018-05-18 21:02 | Progress Note ---
Provider Note Provider Note: CARDIOLOGY PROGRESS NOTE by Dr. Adriana Sanches on 05/18/2018. SUBJECTIVE: The patient did ambulate without any problems. She denies any chest pain or discomfort. There is no shortness of breath. There is no PND, orthopnea, or leg edema. There is no arrhythmias seen. There is no TIA CVA symptoms. PHYSICAL EXAMINATION: The patient is well-built and well-nourished. At present in no acute distress. She is well-groomed. Selected Entries 05/18/18 11:28 Temperature 97.6 F Temperature Oral Source Pulse Rate 62 Respiratory 18 Rate Blood Pressure 125/67 Blood Pressure 86 Mean BP Location Right Arm BP Position Supine O2 Sat by Pulse 94 Oximetry Oxygen Delivery Room Air Method HEAD: Is atraumatic normocephalic. EYES: Pupils are equal round regular reactive to light accommodation. Extraocular movements are normal. There is no conjunctival pallor. There is no scleral icterus. EARS: Tympanic membranes are intact. External auditory canals are clear. NOSE: There is no deviated nasal septum. There is no inflammation nasal mucous membrane. MOUTH: Mucous members of mouth are moist. Tongue is moist. There is no ulcers in the mouth. There is no bleeding from the gums. THROAT: There is no redness of the oropharynx. There is no exudates. SKIN: There is no skin rashes or skin lesions. There is no petechia or ecchymosis. NECK: Is supple. There is no JVD. There is carotid delay bilaterally, transmitted aortic stenosis murmur heard over both carotids. There are no carotid bruits. There is very muffled to absent A2. This is suggestive of significant aortic stenosis. There is no murmur of aortic regurgitation present.. There is no lymphadenopathy. There is no goiter. There is no accessory muscle respiration use. Trachea central LUNGS: Lungs are clear to auscultation percussion, without any rhonchi rales or wheezing. On palpation there is no chest wall tenderness. HEART: S1-S2 is heard. There is no S3 gallop. There is no S4 gallop. There is systolic murmur 2 /6 over the aortic area, with radiation to both carotids. A2 is absent. This is consistent with severe aortic stenosis. There is no thrill or the aortic area. There is no aortic regurgitation murmur. There is no rub .ABDOMEN: Is soft. Nontender. There is no hepatosplenomegaly. Bowel sounds are well heard. There is no tender areas to both the right masses. EXTREMITIES: Femorals are slightly diminished. There is no femoral bruits. There is a leg pulses are well felt. There is no DVT or cellulitis. There is no pedal edema. There is no calf tenderness. There is no cyanosis or clubbing. Capillary refill is normal. BEEHIVE KILN CHARCOAL BURNER: The patient is conscious awake alert oriented x3 with no focal deficits. PSYCHIATRIC: The patient judgment insight are intact her affect is normal. 05/18/18 09:36 Sodium 138.2 Potassium 4.4 Chloride 107 Carbon Dioxide 21 L Anion Gap 10 BUN 28 H Creatinine 1.25 Est GFR (Non-Af Amer) 41 L Glucose 209 H Calcium 9.1 IMPRESSION/RECOMMENDATION: 1. Non-ST elevation SC in a patient with a history of coronary artery disease, she has multiple coronary artery risk factors. Would recommend cardiac catheterization only if the patient has significant anginal symptoms. Hence will maximize medical treatment as is being done. Also in view of the patient's aortic stenosis would not recommend a stress test at this time. Will follow the patient closely as an outpatient. As mentioned earlier will have the patient see Dr. Ruiz in [place], an outpatient. 2. History of coronary artery disease. Continue beta-thaddeus and Plavix. Note that the patient is allergic to aspirin which causes her to have asthmatic attack. We will continue the patient on beta-thaddeus, amlodipine and Ranexa. 3. Severe Aortic Stenosis by examination.: Echo shows moderate to severe aortic stenosis. 4. Hypertension: Blood pressure well controlled. 5. Diabetes mellitus: Continue antidiabetic regimen, and periodic checks of her patient's blood sugars, 6. Chronic kidney disease stage III: Would recommend nephrology consult , since patient is being followed by [facility] [employer] [facility] in [facility]. Note that the patient renal function/GFR is has improved 7. History of mild uncomplicated bronchial asthma. At present the patient does not have any wheezing. 8. Hypothyroidism: Replace with the thyroid replacement, watch out for any recurrence, or increase in the patient's anginal symptoms. 9. Hyperlipidemia: Continue statin. 10. History of intermittent rectal bleed: Most likely secondary to hemorrhoids, and most likely diverticular bleed. The patient has not had bleeding this admission, the patient also has not had a bowel movement. We will address the patient's constipation. MEDICATIONS reviewed. Management plan discussed with attending physician on the case. Medical decision making I was of moderate complexity. 40 minutes spent on this patient with more than 50% of the time spent in direct patient care. Hopefully patient can be discharged home tomorrow. Will set up an outpatient appointment with Dr. Ruiz in [place]. Patient's cardiac status is stable. Hence will sign off the case, and follow the patient in the office. The patient and the daughter have both have my cell phone numbers, to call if they need any emergency help/assistance medically.
[2018-05-18] MEDS: ATORVASTATIN CALCIUM 40 MG TABLET PO SCH (21:18)
[2018-05-18] MEDS: MONTELUKAST SODIUM 10 MG TABLET PO SCH (21:19)
[2018-05-18] MEDS: TRESIBA 100 UNIT/ML SUBCUT SCH (21:21)
[2018-05-19] MEDS: LEVOTHYROXINE SODIUM 0.075 MG TABLET PO SCH (05:12)
[2018-05-19] MEDS: NORMAL SALINE 1000 ML 1,000 ML IV PRN (05:13)
[2018-05-19] MEDS: INSULIN LISPRO 100 UNIT/ML 3 ML VIAL SUBCUT SCH (08:09)
[2018-05-19] MEDS: METOPROLOL TARTRATE 50 MG TABLET PO SCH (10:03)
[2018-05-19] MEDS: FLUTICASONE/VILANTEROL 100-25 MCG/DOSE IH SCH (10:03)
[2018-05-19] MEDS: GUAIFENESIN 600 MG TABLET.SA PO SCH (10:03)
[2018-05-19] MEDS: PANTOPRAZOLE SODIUM 40 MG TABLET.DR PO SCH (10:03)
[2018-05-19] MEDS: AMLODIPINE BESYLATE 2.5 MG TABLET PO SCH (10:03)
[2018-05-19] MEDS: FAMOTIDINE 20 MG TABLET PO SCH (10:03)
[2018-05-19] MEDS: CLOPIDOGREL BISULFATE 75 MG TABLET PO SCH (10:03)
[2018-05-19] MEDS: LOSARTAN POTASSIUM 50 MG TABLET PO SCH (10:04)
[2018-05-19] MEDS: VENLAFAXINE HCL 37.5 MG CAP.SR.24H PO SCH (10:05)
[2018-05-19] MEDS: RANOLAZINE 500 MG TAB.SR.12H PO SCH (10:06)
[2018-05-19] MEDS: ENOXAPARIN SODIUM INJ 30 MG/0.3 ML DISP.SYRIN SUBCUT SCH (10:13)
[2018-05-19 10:41] VITALS: BP 136/81
[2018-05-19] MEDS ORDERED: ALBUTEROL SULFATE 0.083% NEB 2.5 MG/3 ML AMPUL NEB PRN (10:43)
--- NOTE | 2018-05-20 10:38 | PDOC DISCHARGE SUMMARY ---
General - Admit/Disc Date/PCP Admission Date/Primary Care Provider: 05/15/18 09:42 Esa BRUNSON MD Discharge Date: 05/19/18 - Discharge Diagnosis (1) NSTEMI (non-ST elevated myocardial infarction) Is this a current diagnosis for this admission?: Yes (2) Acute kidney injury Is this a current diagnosis for this admission?: Yes (3) Bronchial asthma Is this a current diagnosis for this admission?: Yes (4) Hypertension Is this a current diagnosis for this admission?: Yes (5) Hypothyroidism (acquired) Is this a current diagnosis for this admission?: Yes (6) Aortic stenosis Is this a current diagnosis for this admission?: Yes - Additional Information Resuscitation Status: Full Code Discharge Diet: Cardiac, Diabetic Discharge Activity: Activity As Tolerated, Balance Activity w/Rest Prescriptions: Amlodipine Besylate [Norvasc 5 mg Tablet] 5 mg PO DAILY #30 tablet Atorvastatin Calcium [Lipitor] 80 mg PO QHS #30 tablet Clopidogrel Bisulfate [Plavix 75 mg Tablet] 75 mg PO DAILY #30 tablet Losartan Potassium [Cozaar] 25 mg PO DAILY #30 tablet Metoprolol Tartrate [Lopressor 50 mg Tablet] 50 mg PO Q12 #60 tablet Polyethylene Glycol 3350 [Miralax Powder 17 gm/Packet] 17 gm PO DAILYP PRN #3 powd.pack PRN Reason: Ranolazine [Ranexa 500 mg Tab.sr] 500 mg PO Q12 #60 tab.sr.12h Sennosides/Docusate 8.6-50 mg [Senna Plus Tablet] 1 each PO BIDP PRN #30 tablet PRN Reason: Home Medications: Levothyroxine Sodium [Synthroid 0.112 mg Tablet] 0.112 mg PO Q6AM 03/11/17 Montelukast Sodium [Singulair 10 mg Tablet] 10 mg PO QHS 03/11/17 Pantoprazole Sodium [Protonix] 40 mg PO DAILY 03/11/17 Albuterol Sulfate [Ventolin 0.083% Neb 2.5 mg/3 mL Ampul] 1 vial NEB Q4 PRN #30 vial 08/01/17 Albuterol Sulfate [Ventolin Hfa] 2 puff IH Q4 PRN 08/01/17 Ergocalciferol (Vitamin D2) [Vitamin D2] 50,000 unit PO Q7D PRN 08/01/17 Fluticasone/Vilanterol [Breo Ellipta 100-25 Mcg INH] 1 puff IH DAILY 08/01/17 Fenofibrate 160 mg PO QPM 11/29/17 Insulin Degludec [Tresiba Flextouch U-100] 30 units SQ QPM 11/29/17 Venlafaxine HCl ER [Effexor Xr 37.5 mg Cap.sr] 37.5 mg PO DAILY 11/29/17 Magnesium 250 mg PO BID 05/15/18 Amlodipine Besylate [Norvasc 5 mg Tablet] 5 mg PO DAILY #30 tablet 05/19/18 Atorvastatin Calcium [Lipitor] 80 mg PO QHS #30 tablet 05/19/18 Clopidogrel Bisulfate [Plavix 75 mg Tablet] 75 mg PO DAILY #30 tablet 05/19/18 Losartan Potassium [Cozaar] 25 mg PO DAILY #30 tablet 05/19/18 Metoprolol Tartrate [Lopressor 50 mg Tablet] 50 mg PO Q12 #60 tablet 05/19/18 Polyethylene Glycol 3350 [Miralax Powder 17 gm/Packet] 17 gm PO DAILYP PRN #3 powd.pack 05/19/18 Ranolazine [Ranexa 500 mg Tab.sr] 500 mg PO Q12 #60 tab.sr.12h 05/19/18 Sennosides/Docusate 8.6-50 mg [Senna Plus Tablet] 1 each PO BIDP PRN #30 tablet 05/19/18 History of Present Illness History of Present Illness: Admitting hospitalist's H&P: URMILA GALEANO is a 83 year old female with past medical history of type 2 diabetes mellitus, hypothyroidism, bronchial asthma, irritable bowel syndrome, history of PE, hypertension and hyperlipidemia presented with chief complaint of chest pain yesterday night. Patient describes her chest pain tightness localizes to her left precordium and radiating to her makes. Patient also endorses associated shortness of breath. She has mild cough but denies any chills, fever, palpitation or diaphoresis. She does not have any nausea vomiting or abdominal pain. No urinary complaints. Her initial troponin is 0.053 and the subsequent troponin increased to 0.119. Since patient has prior history of pulmonary embolism the possibility of PE entertained and patient subjected to VQ scan should she has allergy to dye and this morning the VQ scan reported as no evidence of pulmonary embolism. Patient does not want to be transferred to tertiary center and she does not want any kind of intervention including cardiac catheterization. Hospital Course Hospital Course: This is an 83 year old female with a past medical history of type 2 diabetes mellitus, hypothyroidism, bronchial asthma, irritable bowel syndrome, history of PE, hypertension and hyperlipidemia who presented with chest pain. Her troponins trended up and she was treated for possible NSTEMI. She was not deemed a good candidate for cath due to her acute kidney injury. She was started on Plavix, metoprolol and statin. She has allergy to aspirin. Cardiology also evaluated patient. She was also started on therapeutic dose of Lovenox. Adding Brilinta was discussed but due to patient having occasional hemorrhoidal bleed, she was just kept on Plavix. She has history of ACEi-induced cough and was started on Losartan. She has been chest pain free 2 days prior to discharge. Echo shows normal EF with no motion wall abnormalities but revealed severe aort ic stenosis. Cardio set her up for outpatient follow up with Dr. Ruiz at [facility] for evaluation for possible TAVR. Physical Exam Vital Signs: Temp Pulse Resp BP Pulse Ox 98.7 F 62 14 136/81 H 100 05/19/18 10:39 05/19/18 10:39 05/19/18 10:39 05/19/18 10:39 05/19/18 10:39 Intake & Output 05/19/18 05/20/18 05/21/18 06:59 06:59 06:59 Intake Total 3244 Balance 3244 Weight 175 lb 4.28 oz General appearance: PRESENT: no acute distress, well-developed, well-nourished Head exam: PRESENT: atraumatic, normocephalic Eye exam: PRESENT: conjunctiva pink, EOMI, PERRLA. ABSENT: scleral icterus Ear exam: PRESENT: normal external ear exam Mouth exam: PRESENT: moist, tongue midline Neck exam: ABSENT: carotid bruit, JVD, lymphadenopathy, thyromegaly Respiratory exam: PRESENT: clear to auscultation jadyn. ABSENT: rales, rhonchi, wheezes Cardiovascular exam: PRESENT: RRR, systolic murmur. ABSENT: rubs Pulses: PRESENT: normal dorsalis pedis pul GI/Abdominal exam: PRESENT: normal bowel sounds, soft. ABSENT: distended, guarding, mass, organolmegaly, rebound, tenderness Rectal exam: PRESENT: deferred Extremities exam: PRESENT: full ROM. ABSENT: calf tenderness, clubbing, pedal edema Neurological exam: PRESENT: alert, awake, oriented to person, oriented to place, oriented to time, oriented to situation, CN II-XII grossly intact. ABSENT: motor sensory deficit Results Laboratory Results: 05/15/18 00:20 05/18/18 09:36 05/15/18 05/15/18 05/15/18 00:20 04:19 09:50 Troponin I 0.053 0.119 0.134 05/16/18 10:49 Troponin I 0.104 Impressions: Chest X-Ray 05/14/18 23:16 IMPRESSION: Clear lungs. Lung Scan-VQ NM 05/15/18 04:36 IMPRESSION: NORMAL VENTILATION-PERFUSION LUNG SCAN. NEGATIVE FOR PULMONARY EMBOLI. KUB X-Ray 05/18/18 00:00 IMPRESSION: No radiographic findings of an acute intra-abdominal process. Qualifiers - * PATIENT BEING DISCHARGED WITH ANY OF THE FOLLOWING DIAGNOSIS: No
== END 2018-05-19 11:13 | disposition home health service (06) | DRG 281 ==
LOC: ER 23:03 → EH 05-15 04:51 → OBSVTOIN 05-15 09:42 → 3N 05-15 11:25
PROVIDERS: ADMIT Internal Medicine; ATTEND Internal Medicine
DX: I21.4 Non-ST elevation (NSTEMI) myocardial infarction (principal); N17.9 Acute kidney failure, unspecified; E11.22 Type 2 diabetes mellitus with diabetic chronic kidney disease; I12.9 Hypertensive chronic kidney disease with stage 1 through stage 4 chronic kidney disease, or unspecified chronic kidney disease; N18.3 Chronic kidney disease, stage 3 (moderate); I25.10 Atherosclerotic heart disease of native coronary artery without angina pectoris; I35.0 Nonrheumatic aortic (valve) stenosis; E03.9 Hypothyroidism, unspecified; E78.5 Hyperlipidemia, unspecified; Z86.711 Personal history of pulmonary embolism; Z79.4 Long term (current) use of insulin; Z79.51 Long term (current) use of inhaled steroids; Z79.899 Other long term (current) drug therapy
CPT/HCPCS: 36415; 71045; 74018; 78582; 80048; 80053; 80061; 82803; 82962; 83036; 84439; 84443; 84481; 84484; 85025; 93005; 93010; 93306; 94640; 96374; 96375; 99285; A9540; A9567; J1650; J1815; J2930; J3490; J7030; J7620; Q9969

== ENCOUNTER 2018-05-29 08:24 | Emergency (ER) | payer MEDICARE ==
[2018-05-29 08:46] LABS: ABSOLUTE LYMPHOCYTES (AUTO) 2.3 10^3/uL (0.5-4.7); ABSOLUTE MONOCYTES (AUTO) 0.5 10^3/uL (0.1-1.4); ABSOLUTE NEUT (AUTO) 4.7 10^3/uL (1.7-8.2); BASOPHILS % (AUTO) 0.6 % (0-2); EOSINOPHILS % (AUTO) 0.5 % (0-6); HEMATOCRIT 37.9 % (36.0-47.0); HEMOGLOBIN 12.9 g/dL (12.0-15.5); LYMPHOCYTES % (AUTO) 30.7 % (13-45); MEAN CORPUSCULAR HEMOGLOBIN 29.1 pg (27.0-33.4); MEAN CORPUSCULAR HGB CONC 33.9 g/dL (32.0-36.0); MEAN CORPUSCULAR VOLUME 86 fl (80-97); MONOCYTES % (AUTO) 6.3 % (3-13); PLATELET COUNT 340 10^3/uL (150-450); RED BLOOD COUNT 4.42 10^6/uL (3.72-5.28); RED CELL DISTRIBUTION WIDTH 14.7 % (11.5-14.0); SEGMENTED NEUTROPHILS % (AUTO) 61.9 % (42-78); TOTAL CELLS COUNTED % (AUTO) 100 %; WHITE BLOOD COUNT 7.6 10^3/uL (4.0-10.5)
--- NOTE | 2018-05-29 09:04 | ER Document Report ---
ED Cardiac - General Chief Complaint: Chest Pain Stated Complaint: CHEST PAIN Time Seen by Provider: 05/29/18 08:48 Primary Care Provider: TERRY WHEATLEY MD [ACTIVE STAFF] - 06/02/18 Esa JAMA MD [Primary Care Provider] - Follow up as needed Notes: Patient is an 83-year-old female who presents to the emergency department with a chief complaint of chest pain. She describes her pain as a tightness that radiates into her back. Her symptoms started around 6:30 this morning. She was not doing anything in particular. She states that she was half asleep and starting to wake up. She was not doing any strenuous activity. She was brought in by ambulance and in route was given 2 nitroglycerin sublingually, but continues to have chest pain. She was hospitalized May 15 until May 19 with an end STEMI here in the hospital and was treated. She is supposed to follow-up with Dr. Ruiz, from [facility] on the of this month. She is currently on Ranexa, Plavix, and metoprolol. Past medical history includes diabetes (on insulin), hyperlipidemia, hypertension, diverticulitis with colon resection, and acute renal failure. She is followed by Dr. Jama for her acute renal failure. Her last visit, she was unable to have a cardiac cath because of her renal function. TRAVEL OUTSIDE OF THE [place] IN LAST 30 DAYS: No - Related Data Allergies/Adverse Reactions: aspirin [Aspirin] Allergy (Intermediate, Verified 05/14/18 23:43) Facial edema and rash Iodinated Contrast- Oral and IV Dye [IV Dye, Iodine Containing] Allergy (Mild, Verified 05/14/18 23:43) Diarrhea Penicillins Allergy (Mild, Verified 05/14/18 23:43) Diarrhea Shellfish * [Shellfish] Allergy (Mild, Verified 05/14/18 23:43) Diarrhea DEION Inhibitors Adverse Reaction (Verified 05/14/18 23:43) cephalexin [From Keflex] Adverse Reaction (Verified 05/14/18 23:43) fish derived Adverse Reaction (Verified 05/14/18 23:43) Sulfa (Sulfonamide Antibiotics) Adverse Reaction (Verified 05/14/18 23:43) Past Medical History - Social History Smoking Status: Unknown if Ever Smoked Family History: Reviewed & Not Pertinent - Past Medical History Cardiac Medical History: Reports: Hx Coronary Artery Disease, Hx Hypertension Denies: Hx Heart Attack Pulmonary Medical History: Reports: Hx Asthma, Hx COPD, Hx Pneumonia Denies: Hx Bronchitis Neurological Medical History: Denies: Hx Cerebrovascular Accident, Hx Seizures Endocrine Medical History: Reports: Hx Diabetes Mellitus Type 2, Hx Hypothyroidism Renal/ Medical History: Denies: Hx Peritoneal Dialysis Musculoskeletal Medical History: Reports Hx Arthritis - GENERALIZED Past Surgical History: Reports: Hx Abdominal Surgery - sigmoid colon resection, Hx Appendectomy, Hx Gynecologic Surgery - partial ovaries left after hysterectomy, Hx Hysterectomy, Hx Tonsillectomy, Hx Tubal Ligation, Other - sigmoid colectomy - Immunizations Hx Diphtheria, Pertussis, Tetanus Vaccination: Yes Review of Systems - Review of Systems Notes: REVIEW OF SYSTEMS: CONSTITUTIONAL : Denies recent illness. Denies recent unintentional weight loss. Denies fever, chills, or sweats. EENT: Denies eye, ear, throat, or mouth pain, discharge, or symptoms. Denies nasal or sinus congestion. CARDIOVASCULAR: See HPI RESPIRATORY: Denies shortness of breath, cough, congestion, difficulty breathing, or wheezing. GASTROINTESTINAL: Denies nausea, vomiting, and diarrhea. Denies abdominal pain. Denies constipation. GENITOURINARY: Denies difficulty urinating, burning, blood in urine, urgency or frequency. MUSCULOSKELETAL: Denies neck and back pain. Denies joint pain or swelling. SKIN: Denies rash, itchiness, or lesions HEMATOLOGIC : Denies easy bruising or bleeding. LYMPHATIC: Denies swollen, painful, enlarged glands. NEUROLOGICAL: Denies no numbness or tingling denies weakness. Denies headache. Denies altered mental status. Denies alteration in speech. PSYCHIATRIC: Denies stress, anxiety, alteration in sleep patterns, or depression. All other systems reviewed and negative. Physical Exam - Vital signs Vitals: Resp BP Pulse Ox 15 122/81 99 05/29/18 08:33 05/29/18 08:33 05/29/18 08:33 - Notes Notes: PHYSICAL EXAMINATION: GENERAL: Appears well, healthy, well-nourished, no acute distress. HEAD: Normocephalic, atraumatic. EYES: PERRL, conjunctiva normal, all extraocular movements intact, sclera nonicteric ENT: Moist mucous membranes. NECK: Supple, no noticeable swelling, redness, rash. Normal range of motion. LUNGS: Equal breath sounds bilaterally and clear to auscultation. No wheezes rales or rhonchi. CARDIOVASCULAR: Grade 3 systolic murmur, regular rate, regular rhythm. Radial pulses 2+, normal. ABDOMEN: Normoactive bowel sounds. Soft, nontender, no guarding, no rebound tenderness, and no masses palpated. EXTREMITIES: Normal strength and range of motion, no pitting or edema. No cyanosis. NEUROLOGICAL: Moves all extremities upon command. Strength 5/5 in all extremities. PSYCH: Normal mood, normal affect. SKIN: Warm, dry. No rash, lesions, ulcerations noted. Normal skin turgor. Course - Re-evaluation Re-evalutation: 05/29/18 09:[address] Wheatley, who is the patient's forest products teacher. Dr. Wheatley states that since the patient has continued chest pain, he will speak with the forest products teacher over at [facility] to have the patient transferred there for care. I have also contacted the technical services coordinator to make a copy of the patient's echocardiogram from May 15. 05/29/18 10:18 Dr. Wheatley has assessed the patient and is requesting a CT of the chest without contrast. Patient's first troponin is negative. Her hematology is unremarkable. 05/29/18 12:[address] of the chest is actually improved from her previous imaging. I have informed the patient. Waiting on the second troponin. 05/29/18 13:40 Patient's second troponin is negative at this time. I have informed the family and the patient that it is negative. I have called Dr. Wheatley and gave him the results of the second troponin and CT. Patient is to follow up with Dr. Ruiz at [facility]. She will follow-up with Dr. Wheatley on Saturday next week. I will also give her medication for pain. Verbal discharge instructions were given to the patient. They verbalized understanding. They are stable for discharge. - Vital Signs Vital signs: Temp Pulse Resp BP Pulse Ox 98.2 F 15 120/71 96 05/29/18 08:46 05/29/18 13:01 05/29/18 13:01 05/29/18 13:01 - Laboratory Result Diagrams: 05/29/18 08:30 05/29/18 08:30 Laboratory results interpreted by me: 05/29/18 05/29/18 08:30 08:30 RDW 14.7 H Chloride 108 H BUN 21 H Creatinine 1.46 H Est GFR ( Amer) 42 L Est GFR (Non-Af Amer) 34 L Glucose 124 H Creatine Kinase 22 L - EKG Interpretation by Me Additional EKG results interpreted by me: 05/29/18 08:40 Sinus rhythm. Rate 68. IN 164; QRS 78; QT 416; QTC 443. No ST elevations or depressions. Discharge - Discharge Clinical Impression: Chest pain Qualifiers: Chest pain type: unspecified Qualified Code(s): R07.9 - Chest pain, unspecified Condition: Stable Disposition: HOME, SELF-CARE Additional Instructions: You were seen today in the emergency department for chest pain. Your labs and imaging turned out normal. Please follow-up with Dr. Wheatley on Saturday. Please keep your appointment with Dr. Ruiz on the . You can take Tylenol 1000 mg every 6 hours as needed for your pain. Do not exceed 4000 mg in 24 hours. If you develop chest pain, shortness of breath, worsening symptoms, please return to the emergency department. Referrals: Esa JAMA MD [Primary Care Provider] - Follow up as needed TERRY WHEATLEY MD [ACTIVE STAFF] - 06/02/18
[2018-05-29 09:05] LABS: ALANINE AMINOTRANSFERASE 20 U/L (9-52); ALKALINE PHOSPHATASE 105 U/L (38-126); ANION GAP 7 (5-19); ASPARTATE AMINO TRANSFERASE 19 U/L (14-36); BLOOD UREA NITROGEN 21 mg/dL (7-20); CALCIUM 9.6 mg/dL (8.4-10.2); CARBON DIOXIDE 27 mmol/L (22-30); CHLORIDE 108 mmol/L (98-107); GLUCOSE 124 mg/dL (75-110); POTASSIUM 4.7 mmol/L (3.6-5.0); SODIUM 141.6 mmol/L (137-145)
[2018-05-29 09:06] LABS: BILIRUBIN,DIRECT 0.3 mg/dL (0.0-0.4); BILIRUBIN,TOTAL 0.5 mg/dL (0.2-1.3); CREATINE KINASE 22 U/L (30-135); TOTAL PROTEIN 7.3 g/dL (6.3-8.2)
[2018-05-29] MEDS ORDERED: NITROGLYCERIN 2% OINTMENT 1 GM PACKET TP ONE (09:06)
--- NOTE | 2018-05-29 09:14 | RADIOLOGY REPORT (SQ) ---
EXAM DESCRIPTION: CHEST SINGLE VIEW COMPLETED DATE/TIME: 05/29/2018 9:07 am REASON FOR STUDY: bed 19 cp COMPARISON: 05/14/2018 EXAM PARAMETERS: NUMBER OF VIEWS: One view. TECHNIQUE: Single frontal radiographic view of the chest acquired. RADIATION DOSE: NA LIMITATIONS: None. FINDINGS: LUNGS AND PLEURA: No opacities, masses or pneumothorax. No pleural effusion. MEDIASTINUM AND HILAR STRUCTURES: No masses. Contour normal. HEART AND VASCULAR STRUCTURES: Heart normal in size. Normal vasculature. BONES: No acute findings. HARDWARE: None in the chest. OTHER: No other significant finding. IMPRESSION: NO ACUTE RADIOGRAPHIC FINDING IN THE CHEST. No interval change since recent chest x-ray . TECHNICAL DOCUMENTATION: JOB ID: [id number] [employer]- All Rights Reserved Reading location - IP/workstation name: [email or web address]
[2018-05-29 09:17] LABS: CREATINE KINASE MB 0.53 ng/mL (<4.55)
[2018-05-29 09:21] LABS: TROPONIN I < 0.012 ng/mL
--- NOTE | 2018-05-29 10:55 | RADIOLOGY REPORT (SQ) ---
EXAM DESCRIPTION: CT CHEST WITHOUT COMPLETED DATE/TIME: 05/29/2018 10:29 am REASON FOR STUDY: chest pain COMPARISON: 03/12/2017 TECHNIQUE: CT scan performed of the chest without intravenous contrast. Images reviewed with lung, soft tissue and bone windows. Reconstructed coronal and sagittal MPR images reviewed. All images st ored on PACS. All CT scanners at this facility use dose modulation, iterative reconstruction, and/or weight based d osing when appropriate to reduce radiation dose to as low as reasonably achievable (ALARA). [facility]: Dose Right [facility]: CareDose [facility]: Dose Right [facility]: Teradose 4D [facility]: [employer] RADIATION DOSE: CT Rad equipment meets quality standard of care and radiation dose reduction techniq ues were employed. CTDIvol: 17.3 mGy. DLP: 656 mGy-cm. mGy. LIMITATIONS: No technical limitations. FINDINGS: LUNGS AND PLEURA: No infiltrate, masses or effusions. Previously described patchy airspac e disease has resolved. Mild bronchiectatic change right lower lobe that is stable. HILAR AND MEDIASTINAL STRUCTURES: No identified masses or abnormal nodes. No obvious aneurysm. HEART AND VASCULAR STRUCTURES: No aneurysm. No pericardial effusion. UPPER ABDOMEN: Air again noted in the liver from previous intervention. THYROID AND OTHER SOFT TISSUES: No masses. No adenopathy. BONES: No significant finding. HARDWARE: None in the chest. OTHER: No other significant findings. IMPRESSION: Lungs currently clear with resolution of the previously noted patchy airspace disease. No new or acute findings. TECHNICAL DOCUMENTATION: JOB ID: [id number] Quality ID # [id number]: Final reports with documentation of one or more dose reduction techniques (e.g., Au tomated exposure control, adjustment of the mA and/or kV according to patient size, use of iterative reconstruction technique) 2010 [email or web address]- All Rights Reserved Reading location - IP/workstation name: [email or web address]
--- NOTE | 2018-05-29 10:58 | EKG REPORT ---
SEVERITY:- BORDERLINE ECG - SINUS RHYTHM BORDERLINE T ABNORMALITIES, LATERAL LEADS : Confirmed by: Kendra Bear 29-May-2018 10:57:19
[2018-05-29] MEDS ORDERED: METOPROLOL TARTRATE 50 MG TABLET PO ONE (11:27)
[2018-05-29] MEDS ORDERED: RANOLAZINE 500 MG TAB.SR.12H PO ONE (11:28)
[2018-05-29] MEDS ORDERED: LOSARTAN POTASSIUM 25 MG TABLET PO ONE (11:28)
[2018-05-29] MEDS ORDERED: AMLODIPINE BESYLATE 5 MG TABLET PO ONE (11:29)
[2018-05-29] MEDS ORDERED: LEVOTHYROXINE SODIUM 0.112 MG TABLET PO ONE (11:30)
[2018-05-29 13:58] VITALS: BP 120/71
== END 2018-05-29 14:06 | disposition home or self-care (01) ==
LOC: ER 08:24
DX: R07.9 Chest pain, unspecified (principal); M54.9 Dorsalgia, unspecified; Z79.899 Other long term (current) drug therapy; E11.9 Type 2 diabetes mellitus without complications; Z79.4 Long term (current) use of insulin; I25.10 Atherosclerotic heart disease of native coronary artery without angina pectoris; I10 Essential (primary) hypertension
CPT/HCPCS: 93005; 99285; 36415; 82553; 82550; 85025; 80053; 84484; 71045; 71250; 93010; A9270 ×5

== ENCOUNTER 2019-04-20 07:21 | Day surgery (SDC) | payer MEDICARE ==
[2019-04-20] MEDS ORDERED: PROPOFOL INJ 200 MG/20 ML VIAL IV ONE (07:40)
[2019-04-20] MEDS ORDERED: PHENYLEPHRINE HCL INJ/PF 10 MG/1 ML SDV ONE (08:48)
[2019-04-20 09:34] VITALS: BP 123/57
--- NOTE | 2019-04-20 12:08 | Operative Report ---
Operative Report DATE OF SURGERY: 04/20/19 Operative Report: The risk, benefits and alternatives of the procedure including the risk of bleeding, perforation requiring surgery have been explained to the patient in detail and informed consent has been obtained. Patient is placed on left, lateral decubital position. Timeout scope. Propofol medications administered. Rectal examination is done which did not reveal any masses, tears or fissures. An Olympus videoscope was introduced into the patient's rectum. Scope was then carefully advanced all the way to the cecum. Cecum was identified by the usual anatomical landmarks including the ileocecal valve as well as the appendiceal office. Photodocumentation was obtained. Scope was then sequentially pulled back via the various segments of the colon. Retroflexion maneuvers performed. PREOPERATIVE DIAGNOSIS: Rectal bleeding POSTOPERATIVE DIAGNOSIS: Internal hemorrhoids likely the cause of the bleeding. Diverticulosis without any evidence of diverticulitis. Colon thickening noted on the ascending side of the colon status post biopsy. Internal hemorrhoids OPERATION: Colonoscopy with biopsy SURGEON: CT BONILLA ANESTHESIA: LMAC TISSUE REMOVED OR ALTERED: As noted above. COMPLICATIONS: None. ESTIMATED BLOOD LOSS: None. INTRAOPERATIVE FINDINGS: As noted above. PROCEDURE: Patient tolerated the procedure well. No immediate postprocedure complications are noted. Patient is discharged in good condition. Discharge date 04/20/2019. Discharge diet: Regular. Discharge activity: Regular. 2 to 3-week follow-up to discuss findings. Patient is instructed to call the office or proceed to the emergency room should there be any further problems or questions. Wait on the pathology. May require surgical referral if patient wants hemorrhoids to be surgically removed
--- NOTE | 2019-04-20 13:06 | EKG REPORT ---
SEVERITY:- BORDERLINE ECG - SINUS RHYTHM BORDERLINE T ABNORMALITIES, ANT-LAT LEADS : Confirmed by: Anatoliy Naylor MD 20-Apr-2019 13:06:18
== END 2019-04-20 09:36 | disposition home or self-care (01) ==
LOC: END 07:21
PROVIDERS: ATTEND Internal Medicine Gastroenterology
DX: K57.30 Diverticulosis of large intestine without perforation or abscess without bleeding (principal); K64.8 Other hemorrhoids; K62.5 Hemorrhage of anus and rectum; I10 Essential (primary) hypertension; E11.9 Type 2 diabetes mellitus without complications; E07.9 Disorder of thyroid, unspecified; J45.909 Unspecified asthma, uncomplicated; D64.9 Anemia, unspecified; K21.9 Gastro-esophageal reflux disease without esophagitis; Z87.891 Personal history of nicotine dependence; Z79.51 Long term (current) use of inhaled steroids; Z79.899 Other long term (current) drug therapy
CPT/HCPCS: 45380; 82962; 88305 ×2; 93005; 93010; J2370; J2704

== ENCOUNTER → 2019-05-25 | Outpatient (CLI) | payer MEDICARE ==
[2019-05-25 08:11] LABS: ABSOLUTE BASOPHILS # (AUTO) 0.1 10^3/uL (0.0-0.2); ABSOLUTE EOSINOPHILS # (AUTO) 0.1 10^3/uL (0.0-0.6); ABSOLUTE LYMPHOCYTES (AUTO) 2.1 10^3/uL (0.5-4.7); ABSOLUTE MONOCYTES (AUTO) 0.6 10^3/uL (0.1-1.4); ABSOLUTE NEUT (AUTO) 3.8 10^3/uL (1.7-8.2); EOSINOPHILS % (AUTO) 1.4 % (0-6); HEMATOCRIT 36.3 % (36.0-47.0); HEMOGLOBIN 12.2 g/dL (12.0-15.5); LYMPHOCYTES % (AUTO) 31.6 % (13-45); MEAN CORPUSCULAR HEMOGLOBIN 27.5 pg (27.0-33.4); MEAN CORPUSCULAR HGB CONC 33.4 g/dL (32.0-36.0); MEAN CORPUSCULAR VOLUME 82 fl (80-97); MONOCYTES % (AUTO) 8.6 % (3-13); PLATELET COUNT 330 10^3/uL (150-450); RED BLOOD COUNT 4.41 10^6/uL (3.72-5.28); RED CELL DISTRIBUTION WIDTH 14.7 % (11.5-14.0); SEGMENTED NEUTROPHILS % (AUTO) 57.4 % (42-78); TOTAL CELLS COUNTED % (AUTO) 100 %; WHITE BLOOD COUNT 6.6 10^3/uL (4.0-10.5)
[2019-05-25 08:27] LABS: ANION GAP 5 (5-19); BLOOD UREA NITROGEN 25 mg/dL (7-20); CALCIUM 9.8 mg/dL (8.4-10.2); CARBON DIOXIDE 32 mmol/L (22-30); CHLORIDE 104 mmol/L (98-107); GLUCOSE 124 mg/dL (75-110); PHOSPHORUS 3.7 mg/dL (2.5-4.5); POTASSIUM 5.1 mmol/L (3.6-5.0)
[2019-05-25 08:34] LABS: APPEARANCE,URINE CLEAR; BILIRUBIN,URINE NEGATIVE (NEGATIVE); COLOR,URINE YELLOW; GLUCOSE, URINE NEGATIVE (NEGATIVE); KETONES,URINE NEGATIVE (NEGATIVE); LEUKOCYTE ESTERASE,URINE TRACE (NEGATIVE); NITRITE,URINE NEGATIVE (NEGATIVE); PROTEIN,URINE NEGATIVE (NEGATIVE); URINE SPECIFIC GRAVITY 1.016; UROBILINOGEN,URINE NEGATIVE mg/dL (<2.0)
== END ==
LOC: OD 07:39
PROVIDERS: ATTEND Physician Assistant Medical
DX: I12.9 Hypertensive chronic kidney disease with stage 1 through stage 4 chronic kidney disease, or unspecified chronic kidney disease (principal); N18.2 Chronic kidney disease, stage 2 (mild); E11.22 Type 2 diabetes mellitus with diabetic chronic kidney disease
CPT/HCPCS: 36415; 80048; 81001; 83970; 84100; 85025

== ENCOUNTER 2019-10-20 15:49 | Emergency (ER) | payer MEDICARE ==
[2019-10-20] MEDS ORDERED: ONDANSETRON HCL INJ/PF 4 MG/2 ML SDV IV ONE (19:09)
[2019-10-20] MEDS ORDERED: NORMAL SALINE 1000 ML 1,000 ML IV ONE (19:09)
[2019-10-20 19:22] LABS: APPEARANCE,URINE SLIGHTLY-CLOUDY; BILIRUBIN,URINE NEGATIVE (NEGATIVE); COLOR,URINE YELLOW; GLUCOSE, URINE NEGATIVE (NEGATIVE); KETONES,URINE NEGATIVE (NEGATIVE); PROTEIN,URINE 100 mg/dL (NEGATIVE); URINE SPECIFIC GRAVITY 1.023; UROBILINOGEN,URINE NEGATIVE mg/dL (<2.0)
--- NOTE | 2019-10-20 19:23 | RADIOLOGY REPORT (SQ) ---
EXAM DESCRIPTION: CHEST SINGLE VIEW IMAGES COMPLETED DATE/TIME: 10/20/2019 6:03 pm REASON FOR STUDY: body pain COMPARISON: Chest radiograph, 05/29/2018. CT chest 05/29/2018. EXAM PARAMETERS: NUMBER OF VIEWS: One view. TECHNIQUE: Single frontal radiographic view of the chest acquired. RADIATION DOSE: NA LIMITATIONS: None. FINDINGS: LUNGS AND PLEURA: Lungs are hyperinflated. Biapical pleural and parenchymal scarring is s table. No focal consolidation. Probable small left pleural effusion. No pneumothorax. MEDIASTINUM AND HILAR STRUCTURES: No masses. Contour normal. HEART AND VASCULAR STRUCTURES: Heart normal in size. Normal vasculature. BONES: No acute findings. HARDWARE: None in the chest. OTHER: No other significant finding. IMPRESSION: Small left pleural effusion. TECHNICAL DOCUMENTATION: JOB ID: [id number] 2010 [employer]- All Rights Reserved Reading location - IP/workstation name: [email or web address]
--- NOTE | 2019-10-20 20:04 | ER Document Report ---
ED Flu Like - General Chief Complaint: Flu Symptoms Stated Complaint: BODY ACHES Time Seen by Provider: 10/20/19 18:16 Primary Care Provider: GENESIS RYAN PA-C [ALLIED HEALTH PROFESSIONAL] - Follow up as needed Notes: Patient is an 84-year-old female who presents emergency department with a chief complaint of generalized body aches, low back pain, and generally not feeling well. Patient was tested for COVID-19, which came back negative a few days ago. Patient states that she continues to have body aches. She did not get checked for a urinary tract infection. Patient states that she has history of kidney s tones and urinary tract infections in the past. Patient also has a history of diabetes, hyperlipidemia, hypertension, diverticulitis with a colon resection, and acute renal failure. TRAVEL OUTSIDE OF THE [place] IN LAST 30 DAYS: No - Related Data Allergies/Adverse Reactions: aspirin [Aspirin] Allergy (Intermediate, Verified 10/20/19 18:30) Facial edema and rash Iodinated Contrast Media [IV Dye, Iodine Containing] Allergy (Mild, Verified 10/20/19 18:30) Diarrhea Penicillins Allergy (Mild, Verified 10/20/19 18:30) Diarrhea Shellfish * [Shellfish] Allergy (Mild, Verified 10/20/19 18:30) Diarrhea DEION Inhibitors Adverse Reaction (Verified 10/20/19 18:30) cephalexin [From Keflex] Adverse Reaction (Verified 10/20/19 18:30) fish derived Adverse Reaction (Verified 10/20/19 18:30) Sulfa (Sulfonamide Antibiotics) Adverse Reaction (Verified 10/20/19 18:30) Past Medical History - Social History Smoking Status: Former Smoker Frequency of alcohol use: None Drug Abuse: None Family History: Reviewed & Not Pertinent Patient has homicidal ideation: No - Past Medical History Cardiac Medical History: Reports: Hx Coronary Artery Disease, Hx Heart Attack - 2019, Hx Hypertension Pulmonary Medical History: Reports: Hx COPD, Hx Pneumonia Denies: Hx Asthma, Hx Bronchitis Neurological Medical History: Denies: Hx Cerebrovascular Accident, Hx Seizures Endocrine Medical History: Reports: Hx Diabetes Mellitus Type 2, Hx Hypothyroidism Renal/ Medical History: Denies: Hx Peritoneal Dialysis Musculoskeletal Medical History: Reports Hx Arthritis - GENERALIZED Past Surgical History: Reports: Hx Abdominal Surgery - sigmoid colon resection, Hx Appendectomy, Hx Cardiac Surgery - avr, Hx Gynecologic Surgery - partial ovaries left after hysterectomy, Hx Hysterectomy, Hx Tonsillectomy, Hx Tubal Ligation, Other - sigmoid colectomy - Immunizations Hx Diphtheria, Pertussis, Tetanus Vaccination: Yes Review of Systems - Review of Systems Notes: REVIEW OF SYSTEMS: CONSTITUTIONAL : Denies recent illness. Denies recent unintentional weight loss. See HPI. EENT: Denies eye, ear, throat, or mouth pain, discharge, or symptoms. Denies nasal or sinus congestion. CARDIOVASCULAR: Denies chest pain. RESPIRATORY: Denies shortness of breath, cough, congestion, difficulty breathing, or wheezing. GASTROINTESTINAL: Denies nausea, vomiting, and diarrhea. Denies abdominal pain. Denies constipation. GENITOURINARY: Denies difficulty urinating, burning, blood in urine, urgency or frequency. MUSCULOSKELETAL: See HPI. Denies joint pain or swelling. SKIN: Denies rash, itchiness, or lesions HEMATOLOGIC : Denies easy bruising or bleeding. LYMPHATIC: Denies swollen, painful, enlarged glands. NEUROLOGICAL: Denies no numbness or tingling denies weakness. Denies headache. Denies altered mental status. Denies alteration in speech. PSYCHIATRIC: Denies stress, anxiety, alteration in sleep patterns, or depression. All other systems reviewed and negative. Physical Exam - Vital signs Vitals: Temp 97.5 F 10/20/19 18:00 - Notes Notes: PHYSICAL EXAMINATION: GENERAL: Appears well, healthy, well-nourished, no acute distress. HEAD: Normocephalic, atraumatic. EYES: PERRL, conjunctiva normal, all extraocular movements intact, sclera no nicteric ENT: Moist mucous membranes. NECK: Supple, no noticeable swelling, redness, rash. Normal range of motion. LUNGS: Equal breath sounds bilaterally and clear to auscultation. No wheezes r ales or rhonchi. CARDIOVASCULAR: S1-S2, regular rate, regular rhythm. Radial pulses 2+, normal. ABDOMEN: Normoactive bowel sounds. Soft, slightly tender right flank pain, no rebound tenderness, and no masses palpated. EXTREMITIES: Normal strength and range of motion, no pitting or edema. No cy anosis. NEUROLOGICAL: Moves all extremities upon command. Strength 5/5 in all extremities. PSYCH: Normal mood, normal affect. SKIN: Warm, dry. No rash, lesions, ulcerations noted. Normal skin turgor. Course - Re-evaluation Re-evalutation: 10/20/19 22:08 Patient has groundglass opacities noted in the bases of her CT. I spoke with the patient's daughter Sophie over the phone. Discussed that I would like to test the patient for COVID-19 again, as she might have had a false negative on her initial test for COVID. The patient was evaluated during the global COVID-19 pandemic and that diagnosis was suspected/considered upon their initial presentation. Their evaluation, treatment and testing was consistent with current guidelines for patients who present with complaints or symptoms that may be related to COVID-19. Hematology is unremarkable. No leukocytosis or anemia noted. Chemistries show a creatinine of 1.39, which is normal for the patient. Urinalysis shows a small amount of blood. Patient does have kidney stones noted inside her kidneys, but no stones noted in her ureters. Urine cultures have been sent. Vital signs are stable. Follow-up precautions were given. Verbal discharge instructions were given to the patient. They verbalized understanding. They are stable for discharge. - Vital Signs Vital signs: Temp Pulse Resp BP Pulse Ox 98.2 F 89 19 139/89 H 97 10/20/19 22:25 10/20/19 22:25 10/20/19 22:25 10/20/19 22:25 10/20/19 22:25 - Laboratory Result Diagrams: 10/20/19 19:20 10/20/19 19:20 Laboratory results interpreted by me: 10/20/19 10/20/19 10/20/19 18:20 19:20 19:20 MCH 26.5 L RDW 15.2 H BUN 26 H Creatinine 1.39 H Est GFR ( Amer) 44 L Est GFR (MDRD) Non-Af 36 L Glucose 133 H AST 37 H Urine Protein 100 H Urine Blood SMALL H Discharge - Discharge Clinical Impression: Suspected 2019 novel coronavirus infection, Body aches Condition: Stable Disposition: HOME, SELF-CARE Instructions: COVID-19 Guidance for Persons Under Investigation Additional Instructions: You were seen today in the emergency department for body aches. You are being tested for COVID-19 again. Please make sure that you isolate at home. You are being sent home with nausea medication. You can take 1 tablet every 4-6 hours as needed for nausea or vomiting. If you develop shortness of breath, difficulty breathing, or worsening symptoms, please return to emergency department. Your urine was also sent for culture. If there is a bacteria that needs to be treated, you will be called. Prescriptions: Ondansetron [Zofran Odt 4 mg Tablet] 1 - 2 tab PO Q4H PRN #15 tab.rapdis PRN Reason: For Nausea/Vomiting Referrals: GENESIS RYAN PA-C [ALLIED HEALTH PROFESSIONAL] - Follow up as needed
[2019-10-20 20:07] LABS: ABSOLUTE LYMPHOCYTES (AUTO) 1.1 10^3/uL (0.5-4.7); ABSOLUTE MONOCYTES (AUTO) 0.4 10^3/uL (0.1-1.4); ABSOLUTE NEUT (AUTO) 2.8 10^3/uL (1.7-8.2); BASOPHILS % (AUTO) 0.3 % (0-2); EOSINOPHILS % (AUTO) 0.1 % (0-6); HEMATOCRIT 39.5 % (36.0-47.0); HEMOGLOBIN 12.9 g/dL (12.0-15.5); LYMPHOCYTES % (AUTO) 26.2 % (13-45); MEAN CORPUSCULAR HEMOGLOBIN 26.5 pg (27.0-33.4); MEAN CORPUSCULAR HGB CONC 32.6 g/dL (32.0-36.0); MEAN CORPUSCULAR VOLUME 81 fl (80-97); MONOCYTES % (AUTO) 8.9 % (3-13); PLATELET COUNT 265 10^3/uL (150-450); RED BLOOD COUNT 4.85 10^6/uL (3.72-5.28); RED CELL DISTRIBUTION WIDTH 15.2 % (11.5-14.0); SEGMENTED NEUTROPHILS % (AUTO) 64.5 % (42-78); TOTAL CELLS COUNTED % (AUTO) 100 %; WHITE BLOOD COUNT 4.3 10^3/uL (4.0-10.5)
[2019-10-20 20:16] LABS: ALBUMIN 4.3 g/dL (3.5-5.0); ALKALINE PHOSPHATASE 92 U/L (38-126); ANION GAP 11 (5-19); ASPARTATE AMINO TRANSFERASE 37 U/L (14-36); BILIRUBIN,DIRECT 0.4 mg/dL (0.0-0.4); BILIRUBIN,TOTAL 0.5 mg/dL (0.2-1.3); BLOOD UREA NITROGEN 26 mg/dL (7-20); CALCIUM 9.5 mg/dL (8.4-10.2); CARBON DIOXIDE 26 mmol/L (22-30); CHLORIDE 101 mmol/L (98-107); GLUCOSE 133 mg/dL (75-110); POTASSIUM 4.8 mmol/L (3.6-5.0); TOTAL PROTEIN 7.4 g/dL (6.3-8.2)
--- NOTE | 2019-10-20 21:53 | RADIOLOGY REPORT (SQ) ---
CT ABDOMEN PELVIS WITHOUT IV CONTRAST HISTORY: Bilateral flank pain. COMPARISON: 01/07/2017 TECHNIQUE: CT scan of the abdomen and pelvis was performed without IV contrast. This exam was performed according to our departmental dose-optimization program, which includes automated exposure control, adjustment of the mA and/or kV according to patient size and/or use of iterative reconstruction technique. FINDINGS: There are multiple patchy groundglass opacities scattered at the lung bases in a predominantly peripheral distribution. No pleural or pericardial effusions. There is no hiatal hernia. There is a small amount of pneumobilia, unchanged from prior. Mild hepatic steatosis. The gallbladder, spleen, pancreas, and adrenal glands are unremarkable. There are tiny nonobstructing stones in both kidneys but without hydronephrosis. There has been a prior hysterectomy. The urinary bladder is unremarkable. Surgical sutures are seen in the sigmoid colon. The small and large bowel are unremarkable without evidence of inflammation or obstruction. There has been a prior appendectomy. No intraperitoneal free fluid or free air is seen. The aorta is normal caliber and contains atherosclerotic calcifications. No acute bony findings are seen. There is increased sclerosis in the proximal right femur, which may represent avascular necrosis or Pagetoid bony sequela. IMPRESSION: 1. Tiny nonobstructing bilateral renal stones. No hydronephrosis or bladder stones 2. Commonly reported imaging features of viral pneumonia are present. Other processes such as influenza pneumonia and organizing pneumonia, as can be seen with drug toxicity and connective tissue disease, can cause a similar imaging pattern. [PneTyp] Reference: https://pubs.rsna.org/doi/full/10.1148/ryct.[email or web address]
[2019-10-20] MEDS ORDERED: ONDANSETRON ODT 4 MG TAB (6 TAB/ER DISP) PO PRN (22:11)
[2019-10-20 22:26] VITALS: BP 139/89
== END 2019-10-20 22:30 | disposition home or self-care (01) ==
LOC: ER 15:49
DX: U07.1 COVID-19 (principal); M54.5 Low back pain; N20.0 Calculus of kidney; R31.9 Hematuria, unspecified; J90 Pleural effusion, not elsewhere classified; R10.819 Abdominal tenderness, unspecified site; I25.10 Atherosclerotic heart disease of native coronary artery without angina pectoris; I25.2 Old myocardial infarction; J44.9 Chronic obstructive pulmonary disease, unspecified; E11.9 Type 2 diabetes mellitus without complications; I10 Essential (primary) hypertension; Z87.440 Personal history of urinary (tract) infections; Z88.8 Allergy status to other drugs, medicaments and biological substances; Z91.041 Radiographic dye allergy status; Z88.0 Allergy status to penicillin; Z91.013 Allergy to seafood
CPT/HCPCS: 99285; 96361; 96374; 36415; 85025; 80053; 81001; 71045; 74176; U0003; J2405; J7030; A9270; C9803; 87635

== ENCOUNTER 2019-10-26 19:30 | Inpatient (IN) | payer MEDICARE ==
--- NOTE | 2019-10-26 20:12 | ER Document Report ---
ED General - General Stated Complaint: SHORTNESS OF BREATH Time Seen by Provider: 10/26/19 19:40 Notes: 84-year-old female presents with shortness of breath and cough worsening for about 10 days. Diagnosed with COVID at least 5 or 7 days ago not sure when it is continue to get worse. Hypoxic on arrival here on 3 L of oxygen. No belly pain no fevers but positive decreased oral intake and dehydration. Significantly short of breath on arrival. TRAVEL OUTSIDE OF THE [place] IN LAST 30 DAYS: No - Related Data Allergies/Adverse Reactions: aspirin [Aspirin] Allergy (Intermediate, Verified 10/20/19 18:30) Facial edema and rash Iodinated Contrast Media [IV Dye, Iodine Containing] Allergy (Mild, Verified 10/20/19 18:30) Diarrhea Penicillins Allergy (Mild, Verified 10/20/19 18:30) Diarrhea Shellfish * [Shellfish] Allergy (Mild, Verified 10/20/19 18:30) Diarrhea DEION Inhibitors Adverse Reaction (Verified 10/20/19 18:30) cephalexin [From Keflex] Adverse Reaction (Verified 10/20/19 18:30) fish derived Adverse Reaction (Verified 10/20/19 18:30) Sulfa (Sulfonamide Antibiotics) Adverse Reaction (Verified 10/20/19 18:30) Past Medical History - General Information source: Patient - Social History Smoking Status: Unknown if Ever Smoked Family History: Reviewed & Not Pertinent - Past Medical History Cardiac Medical History: Reports: Hx Coronary Artery Disease, Hx Heart Attack - 2019, Hx Hypertension Pulmonary Medical History: Reports: Hx COPD, Hx Pneumonia Denies: Hx Asthma, Hx Bronchitis Neurological Medical History: Denies: Hx Cerebrovascular Accident, Hx Seizures Endocrine Medical History: Reports: Hx Diabetes Mellitus Type 2, Hx Hy pothyroidism Renal/ Medical History: Denies: Hx Peritoneal Dialysis Musculoskeletal Medical History: Reports Hx Arthritis - GENERALIZED Past Surgical History: Reports: Hx Abdominal Surgery - sigmoid colon resection, Hx Appendectomy, Hx Cardiac Surgery - avr, Hx Gynecologic Surgery - partial ovaries left after hysterectomy, Hx Hysterectomy, Hx Tonsillectomy, Hx Tubal Ligation, Other - sigmoid colectomy - Immunizations Hx Diphtheria, Pertussis, Tetanus Vaccination: Yes Review of Systems - Review of Systems Notes: REVIEW OF SYSTEMS Acuity PHYSICAL EXAMINATION General: Mild to moderate distress Head: Atraumatic, normocephalic ENT: Mouth normal, oropharynx moist, no exudates or tonsillar enlargement Eyes: Conjunctiva normal, pupils equal, lids normal Neck: No JVD, supple, no guarding CVS: Normal rate, regular rhythm, no murmurs Resp: Sounds bilaterally. Tachypnea. GI: Nondistended, soft, no tenderness to palpation, no rebound or guarding Ext: No deformities, no edema, normal range of motion in upper and lower ext Back: No CVA or midline TTP Skin: No rash, warm Lymphatic: No lymphadeopathy noted Neuro: Awake, alert. Face symmetric. GCS 15. Physical Exam - Vital signs Vitals: Temp 98.8 F 10/26/19 19:30 Course - Re-evaluation Re-evalutation: 10/26/19 20:11 Hypoxia COVID-19 We will rule out sepsis and lobar infiltrate but will hold on antibiotics and hydration for now 4 L of oxygen, patient is satting mid 90s and comfortable when lying still - Vital Signs Vital signs: Temp Pulse Resp BP Pulse Ox 98.8 F 10/26/19 19:30 - Laboratory Result Diagrams: 10/26/19 19:48 10/26/19 19:48 Laboratory results interpreted by me: 10/26/19 10/26/19 19:48 19:48 Hgb 11.9 L MCH 26.5 L RDW 15.2 H Sodium 136.9 L BUN 31 H Creatinine 1.54 H Est GFR ( Amer) 39 L Est GFR (MDRD) Non-Af 32 L Critical Care Note - Critical Care Note Total time excluding time spent on procedures (mins): 34 Comments: The above patient is critically ill. Not including procedures, but including direct re-evaluations, speaking with patient and/or consultants, interpreting results, and documenting, I spent the total amount of minute listed listed above on critical care time Discharge - Discharge Clinical Impression: COVID-19 Respiratory failure with hypoxia Qualifiers: Chronicity: acute Qualified Code(s): J96.01 - Acute respiratory failure with hypoxia Condition: Critical Disposition: ADMITTED INPATIENT Admitting Provider: Yanet (Hospitalist) Unit Admitted: [facility]
[2019-10-26 20:13] LABS: ABSOLUTE LYMPHOCYTES (AUTO) 0.8 10^3/uL (0.5-4.7); ABSOLUTE MONOCYTES (AUTO) 0.3 10^3/uL (0.1-1.4); ABSOLUTE NEUT (AUTO) 3.1 10^3/uL (1.7-8.2); BASOPHILS % (AUTO) 0.3 % (0-2); HEMATOCRIT 36.2 % (36.0-47.0); HEMOGLOBIN 11.9 g/dL (12.0-15.5); LYMPHOCYTES % (AUTO) 19.6 % (13-45); MEAN CORPUSCULAR HEMOGLOBIN 26.5 pg (27.0-33.4); MEAN CORPUSCULAR VOLUME 80 fl (80-97); MONOCYTES % (AUTO) 8.1 % (3-13); PLATELET COUNT 357 10^3/uL (150-450); RED CELL DISTRIBUTION WIDTH 15.2 % (11.5-14.0); TOTAL CELLS COUNTED % (AUTO) 100 %; WHITE BLOOD COUNT 4.3 10^3/uL (4.0-10.5)
[2019-10-26 20:18] LABS: VENOUS BLOOD BASE EXCESS -0.9 mmol/L; VENOUS BLOOD HCO3 23.1 mmol/L (20-32); VENOUS BLOOD PCO2 36.1 mmHg (35-63); VENOUS BLOOD PH 7.42 (7.30-7.42)
[2019-10-26 20:25] LABS: ANION GAP 12 (5-19); BLOOD UREA NITROGEN 31 mg/dL (7-20); CALCIUM 8.6 mg/dL (8.4-10.2); CARBON DIOXIDE 25 mmol/L (22-30); CHLORIDE 100 mmol/L (98-107); GLUCOSE 81 mg/dL (75-110); POTASSIUM 4.4 mmol/L (3.6-5.0)
--- NOTE | 2019-10-26 20:30 | RADIOLOGY REPORT (SQ) ---
EXAM DESCRIPTION: XR CHEST 1 VIEW COMPLETED DATE/TME: 10/26/2019 19:34 CLINICAL HISTORY: 84 years, Female, SOB COMPARISON: Prior study from 10/20/2019 NUMBER OF VIEWS: One TECHNIQUE: Single frontal view of the chest was obtained LIMITATIONS: None. FINDINGS: Cardiac and mediastinal contours are stable. Patchy multifocal opacities noted throughout both lungs, primarily about both lung bases. Overall, this appears increased. No pneumothorax or large pleural effusion. IMPRESSION: Interval increase in patchy multifocal bilateral airspace disease, suspicious for multifocal pneumonia/viral pneumonitis. copyright 2010 [employer]- All Rights Reserved
[2019-10-26 20:38] LABS: TROPONIN I 0.032 ng/mL
[2019-10-26] MEDS ORDERED: DEXAMETHASONE SOD PHOSPHATE INJ 4 MG/1 ML VIAL IV ONE (21:08)
[2019-10-26] MEDS ORDERED: ACETAMINOPHEN 325 MG TABLET PO PRN ×2 (22:43→22:49)
[2019-10-26] MEDS ORDERED: MAG HYDROX/AL HYDROX/SIMETH SUSP 30 ML UDCUP PO PRN (22:49)
[2019-10-26] MEDS ORDERED: MAGNESIUM HYDROXIDE SUSP 30 ML UDCUP PO PRN (22:49)
[2019-10-26] MEDS ORDERED: LEVALBUTEROL HCL NEB 0.63 MG/3 ML AMPUL NEB PRN (22:49)
[2019-10-26] MEDS ORDERED: LORAZEPAM INJ 2 MG/1 ML VIAL IV PRN (22:49)
[2019-10-26] MEDS ORDERED: MORPHINE SULFATE 10 MG/ML INJ IV PRN ×4 (22:49→23:08)
[2019-10-26] MEDS ORDERED: MELATONIN 5 MG TABLET PO PRN (22:49)
[2019-10-26] MEDS ORDERED: METOPROLOL TARTRATE PF/INJ 5 MG/5 ML SDV IV PRN (22:51)
[2019-10-26] MEDS ORDERED: GLUCAGON,HUMAN RECOMB 1 MG INJ IM PRN (22:51)
[2019-10-26] MEDS ORDERED: DEXTROSE 40% GEL 15 GM TUBE PO PRN ×2 (22:51)
[2019-10-26] MEDS ORDERED: DEXTROSE 50%-WATER 25 GM/50 ML DISP.SYRIN IV PRN ×2 (22:51)
[2019-10-26] MEDS ORDERED: HYDRALAZINE HCL INJ/PF 20 MG/1 ML SDV IV PRN (22:51)
[2019-10-26] MEDS: HEPARIN SOD (PORCINE) 5,000 UNIT/ML 1 ML VIAL SUBCUT SCH (22:56)
[2019-10-26] MEDS: FAMOTIDINE 20 MG TABLET PO SCH (23:31)
[2019-10-26] MEDS: RINGERS SOLUTION,LACTATED 1,000 ML IV PRN (23:45)
[2019-10-27] MEDS: GUAIFENESIN SYRP 200 MG/10 ML UDC PO PRN (02:25)
[2019-10-27 03:55] LABS: APPEARANCE,URINE CLEAR; BILIRUBIN,URINE NEGATIVE (NEGATIVE); COLOR,URINE AMBER; GLUCOSE, URINE NEGATIVE (NEGATIVE); KETONES,URINE NEGATIVE (NEGATIVE); LEUKOCYTE ESTERASE,URINE NEGATIVE (NEGATIVE); NITRITE,URINE NEGATIVE (NEGATIVE); PROTEIN,URINE 100 mg/dL (NEGATIVE); URINE SPECIFIC GRAVITY 1.023; UROBILINOGEN,URINE NEGATIVE mg/dL (<2.0)
[2019-10-27] MEDS: DEXAMETHASONE SOD PHOSPHATE INJ 4 MG/1 ML VIAL IV SCH ×2 (05:56→14:49)
[2019-10-27] MEDS: HEPARIN SOD (PORCINE) 5,000 UNIT/ML 1 ML VIAL SUBCUT SCH (05:56)
[2019-10-27] MEDS: RINGERS SOLUTION,LACTATED 1,000 ML IV PRN (05:57)
[2019-10-27 06:23] LABS: HEMATOCRIT 34.2 % (36.0-47.0); HEMOGLOBIN 11.4 g/dL (12.0-15.5); MEAN CORPUSCULAR HEMOGLOBIN 26.8 pg (27.0-33.4); MEAN CORPUSCULAR HGB CONC 33.3 g/dL (32.0-36.0); MEAN CORPUSCULAR VOLUME 81 fl (80-97); PLATELET COUNT 337 10^3/uL (150-450); RED BLOOD COUNT 4.25 10^6/uL (3.72-5.28); RED CELL DISTRIBUTION WIDTH 15.2 % (11.5-14.0)
[2019-10-27 06:25] LABS: WHITE BLOOD COUNT 2.3 10^3/uL (4.0-10.5)
[2019-10-27 06:30] LABS: ANION GAP 9 (5-19); BLOOD UREA NITROGEN 31 mg/dL (7-20); CALCIUM 8.4 mg/dL (8.4-10.2); CARBON DIOXIDE 28 mmol/L (22-30); CHLORIDE 101 mmol/L (98-107); GLUCOSE 120 mg/dL (75-110)
--- NOTE | 2019-10-27 06:53 | PDOC H&P ---
History of Present Illness Admission Date/PCP: 10/26/2019 21:29 Velasquez Morin Patient complains of: Dyspnea History of Present Illness: URMILA GALEANO is a 84 year old female who presents the emergency room with acute dyspnea. She admits gradually worsening nonproductive cough, generalized malaise and ague over the last 10 days with the sudden onset of moderate to severe dyspnea today. She was seen here in the ER on 10/20/2019 and a COVID-19 test was done at that time which was positive. Her other symptoms have been accompanied by a decrease in oral intake and associated with a decreased urine output. Her dyspnea is made worse by activity or exertion. She denies admits prior similar episodes associated with her asthma. She has not identified any additional aggravating or ameliorating factors for her dyspnea. In the emergency room she was found to have a multifocal bilateral interstitial pneumonia. She was subsequently admitted to the hospital for further evaluation treatment after initiation of intravenous dexamethasone therapy and supplemental oxygen in the emergency room. Past Medical History Cardiac Medical History: Reports: Coronary Artery Disease, Myocardial Infarction - 2019, Hypertension, Heart Murmur - Aortic stenosis Pulmonary Medical History: Reports: Asthma, Chronic Obstructive Pulmonary Disease (COPD), Pneumonia Denies: Bronchitis EENT Medical History: Reports: Ears - Hearing aids Denies: Cataracts Neurological Medical History: Denies: Hemorrhagic CVA, Ischemic CVA, Seizures Endocrine Medical History: Reports: Diabetes Mellitus Type 2, Hypothyroidism Denies: Diabetes Mellitus Type 1, Hyperthyroidism Renal/ Medical History: Denies: Chronic Kidney Disease, Nephrolithiasis Malignancy Medical History: Reports: None GI Medical History: Denies: Cirrhosis, Hepatitis, Peptic Ulcer Disease Musculoskeltal Medical History: Reports: Arthritis - GENERALIZED Denies: Fibromyalgia Skin Medical History: Denies: Eczema, Psoriasis Psychiatric Medical History: Denies: Alcohol Dependency, Substance Abuse, Tobacco Dependency Traumatic Medical History: Reports: None Hematology: Denies: Anemia, Bleeding Tendencies Infectious Medical History: Reports: None Past Surgical History Past Surgical History: Reports: Appendectomy, Hysterectomy, Tonsillectomy, Tubal Ligation, Other - sigmoid colectomy, colonoscopy with biopsies Social History Information Source: Patient Lives with: Family Smoking Status: Former Smoker Electronic Cigarette use?: No Frequency of Alcohol Use: None Hx Recreational Drug Use: No Drugs: None Hx Prescription Drug Abuse: No - Advance Directive Resuscitation Status: Full Code Surrogate healthcare decision maker:: Francine Zelaya Family History Family History: CAD - Father, COPD - Mother Parental Family History Reviewed: Yes Children Family History Reviewed: No Sibling(s) Family History Reviewed.: No Medication/Allergy Home Medications: Levothyroxine Sodium [Synthroid 0.112 mg Tablet] 0.112 mg PO Q6AM 03/11/17 Montelukast Sodium [Singulair 10 mg Tablet] 10 mg PO QHS 03/11/17 Pantoprazole Sodium [Protonix] 40 mg PO DAILY 03/11/17 Ergocalciferol (Vitamin D2) [Vitamin D2] 50,000 unit PO Q7D PRN 08/01/17 Fenofibrate 160 mg PO QPM 11/29/17 Insulin Degludec [Tresiba Flextouch U-100] 30 units SQ QPM 11/29/17 Venlafaxine HCl ER [Effexor Xr 37.5 mg Cap.sr] 37.5 mg PO DAILY 11/29/17 Magnesium 250 mg PO BID 05/15/18 Atorvastatin Calcium [Lipitor] 80 mg PO QHS #30 tablet 05/19/18 Clopidogrel Bisulfate [Plavix 75 mg Tablet] 75 mg PO DAILY #30 tablet 05/19/18 Sennosides/Docusate 8.6-50 mg [Senna Plus Tablet] 1 each PO BIDP PRN #30 tablet 05/19/18 Estrogen Cream 1 dose TOP .Q3DAYS 04/20/19 Metoprolol Tartrate [Lopressor 50 mg Tablet] 25 mg PO Q12 04/20/19 Ondansetron [Zofran Odt 4 mg Tablet] 1 - 2 tab PO Q4H PRN #15 tab.rapdis 10/20/19 Allergies/Adverse Reactions: aspirin [Aspirin] Allergy (Intermediate, Verified 10/20/19 18:30) Facial edema and rash Iodinated Contrast Media [IV Dye, Iodine Containing] Allergy (Mild, Verified 10/20/19 18:30) Diarrhea Penicillins Allergy (Mild, Verified 10/20/19 18:30) Diarrhea Shellfish * [Shellfish] Allergy (Mild, Verified 10/20/19 18:30) Diarrhea DEION Inhibitors Adverse Reaction (Verified 10/20/19 18:30) cephalexin [From Keflex] Adverse Reaction (Verified 10/20/19 18:30) fish derived Adverse Reaction (Verified 10/20/19 18:30) Sulfa (Sulfonamide Antibiotics) Adverse Reaction (Verified 10/20/19 18:30) Review of Systems Constitutional: PRESENT: as per HPI, anorexia, other - Malaise, ague. ABSENT: chills, fever(s) Eyes: ABSENT: visual disturbances, other - Eye pain Ears: ABSENT: hearing changes, other - Ear pain Nose, Mouth, and Throat: ABSENT: headache(s), sore throat Cardiovascular: PRESENT: as per HPI, dyspnea on exertion. ABSENT: chest pain, palpitations Respiratory: PRESENT: as per HPI, cough, dyspnea. ABSENT: hemoptysis, sputum Gastrointestinal: ABSENT: abdominal pain, constipation, diarrhea, nausea, vomiting Genitourinary: PRESENT: as per HPI, other - Decreased urine output. ABSENT: dysuria, hematuria Musculoskeletal: PRESENT: other - Generalized muscle aches and pains. ABSENT: joint swelling Integumentary: ABSENT: pruritus, rash Neurological: ABSENT: confusion, convulsions, focal weakness, memory loss, syncope Psychiatric: ABSENT: anxiety, depression Endocrine: ABSENT: cold intolerance, heat intolerance Hematologic/Lymphatic: ABSENT: easy bleeding, easy bruising Allergic/Immunologic: ABSENT: seasonal rhinorrhea Physical Exam Vital Signs: Temp Pulse Resp BP Pulse Ox 98.8 F 10/26/19 19:30 Intake & Output 10/24/19 10/25/19 10/26/19 23:59 23:59 23:59 Weight 76.657 kg General appearance: PRESENT: no acute distress, cooperative, other - On supplemental oxygen for my evaluation Head exam: PRESENT: atraumatic, normocephalic Eye exam: PRESENT: conjunctiva pink. ABSENT: conjunctival injection, scleral icterus Ear exam: PRESENT: normal external ear exam. ABSENT: bleeding, drainage Mouth exam: PRESENT: dry mucosa, neck supple Neck exam: ABSENT: thyromegaly, tracheal deviation Respiratory exam: PRESENT: symmetrical, tachypnea. ABSENT: rales, rhonchi Cardiovascular exam: PRESENT: RRR, systolic murmur - 3/6 crescendo decrescendo murmur heard best at the aortic root with radiation to the neck. ABSENT: clicks, gallop, rubs Pulses: PRESENT: normal radial pulses, normal dorsalis pedis pul Vascular exam: PRESENT: normal capillary refill. ABSENT: pallor GI/Abdominal exam: PRESENT: normal bowel sounds, soft. ABSENT: tenderness Rectal exam: PRESENT: deferred Extremities exam: ABSENT: joint swelling, pedal edema Musculoskeletal exam: ABSENT: deformity, dislocation Neurological exam: PRESENT: alert, oriented to person, oriented to place, oriented to time, oriented to situation, CN II-XII grossly intact. ABSENT: motor sensory deficit Psychiatric exam: PRESENT: appropriate affect, normal mood Skin exam: PRESENT: dry, intact, warm. ABSENT: jaundice, rash, urticaria Results Laboratory Results: 10/26/19 19:48 10/26/19 19:48 10/26/19 10/26/19 10/26/19 19:48 19:48 19:48 WBC 4.3 RBC 4.50 Hgb 11.9 L Hct 36.2 MCV 80 MCH 26.5 L MCHC 33.0 RDW 15.2 H Plt Count 357 Seg Neutrophils % 72.0 VBG pH 7.42 VBG pCO2 36.1 VBG HCO3 23.1 VBG Base Excess -0.9 Sodium 136.9 L Potassium 4.4 Chloride 100 Carbon Dioxide 25 Anion Gap 12 BUN 31 H Creatinine 1.54 H Est GFR ( Amer) 39 L Glucose 81 Calcium 8.6 10/26/19 19:48 Troponin I 0.032 NT-Pro-B Natriuret Pep 266 Impressions: Chest X-Ray 10/26/19 19:34 IMPRESSION: Interval increase in patchy multifocal bilateral airspace disease, suspicious for multifocal pneumonia/viral pneumonitis. copyright 2010 [employer]- All Rights Reserved Assessment and Plan - Diagnosis (1) Pneumonia due to COVID-19 virus Is this a current diagnosis for this admission?: Yes (2) Acute respiratory failure with hypoxia Is this a current diagnosis for this admission?: Yes (3) Diabetes mellitus type 2 in nonobese Is this a current diagnosis for this admission?: Yes (4) Hypothyroidism (acquired) Is this a current diagnosis for this admission?: Yes (5) Hypertension Qualifiers: Hypertension type: essential hypertension Qualified Code(s): I10 - Essential (primary) hypertension Is this a current diagnosis for this admission?: Yes (6) Hyperlipidemia Qualifiers: Hyperlipidemia type: unspecified Qualified Code(s): E78.5 - Hyperlipidemia, unspecified Is this a current diagnosis for this admission?: Yes (7) Bronchial asthma Qualifiers: Asthma severity: mild Asthma persistence: intermittent Asthma complication type: uncomplicated Qualified Code(s): J45.20 - Mild intermittent asthma, uncomplicated Is this a current diagnosis for this admission?: Yes (8) Aortic stenosis Qualifiers: Cardiac valve disease etiology: etiology unspecified Qualified Code(s): I35.0 - Nonrheumatic aortic (valve) stenosis Is this a current diagnosis for this admission?: Yes - Plan Summary Summary: Patient will be admitted to [facility] where she will receive routine supportive and symptomatic cares. She will be treated with supplemental oxygen via nasal cannula as needed to provide adequate oxygenation saturation levels. She will receive IV fluids using lactated Ringer's solution. She will receive dexamethasone 2 mg IV every 8 hours. She will receive azithromycin 500 mg IV daily. CBCs, metabolic profiles and additional laboratory and/or radiographic evaluations will be obtained as needed. She will be on a diabetic and cardiac restricted diet. Before meals and at bedtime Accu-Cheks will be obtained with sliding scale insulin for treatment of hyperglycemia and a hypoglycemic protocol in place. She will receive morphine sulfate 2 to 4 mg IV every 2 hours as needed for pain. She will receive Ativan 1 mg IV every 4 hours as needed for anxiety or restlessness. - Time Time Spent with patient: 15-24 minutes Medications reviewed and adjusted accordingly: Yes Anticipated Discharge Disposition: Undetermined Anticipated Discharge Timeframe: Undetermined - Inpatient Certification Based on my medical assessment, after consideration of the patient's comorbidities, presenting symptoms, or acuity I expect that the services needed warrant INPATIENT care.: Yes I certify that my determination is in accordance with my understanding of Medicare's requirements for reasonable and necessary INPATIENT services [42 CFR 412.3e].: Yes Medical Necessity: Failure to Improve With Outpatient Therapy, Significant Comorbidiites Make Outpatient Treatment Too Risky, Need Close Monitoring Due to Risk of Patient Decompensation, Need For IV Fluids, Need For Continuous Telemetry Monitoring, Need for IV Antibiotics, Risk of Complication if Not Cared For in Hospital
[2019-10-27] MEDS ORDERED: INSULIN REG, HUMAN 100 UNIT/ML 3 ML VIAL (PYX) SUBCUT SCH (08:00)
--- NOTE | 2019-10-27 08:45 | EKG REPORT ---
SEVERITY:- ABNORMAL ECG - SINUS RHYTHM LEFT VENTRICULAR HYPERTROPHY : Confirmed by: Ash Huerta MD 27-Oct-2019 08:45:31
[2019-10-27] MEDS ORDERED: MORPHINE SULFATE 10 MG/ML INJ IV PRN (09:04)
[2019-10-27] MEDS ORDERED: LORAZEPAM INJ 2 MG/1 ML VIAL IV PRN (09:04)
[2019-10-27] MEDS ORDERED: ALBUTEROL SULFATE 0.083% NEB 2.5 MG/3 ML AMPUL NEB PRN (09:06)
[2019-10-27] MEDS ORDERED: PHARMACY COMMUNICATION ORDER MC NR (09:15)
[2019-10-27 10:46] LABS: ALBUMIN 3.7 g/dL (3.5-5.0); ALKALINE PHOSPHATASE 87 U/L (38-126); ASPARTATE AMINO TRANSFERASE 52 U/L (14-36); BILIRUBIN,DIRECT 0.4 mg/dL (0.0-0.4); BILIRUBIN,TOTAL 0.7 mg/dL (0.2-1.3); TOTAL PROTEIN 6.9 g/dL (6.3-8.2)
[2019-10-27 10:58] LABS: C-REACTIVE PROTEIN 224.6 mg/L (<10.0)
[2019-10-27] MEDS: FAMOTIDINE 20 MG TABLET PO SCH (11:23)
[2019-10-27] MEDS: DOCUSATE SODIUM 100 MG CAPSULE PO SCH ×2 (11:24→20:34)
[2019-10-27] MEDS: ASCORBIC ACID 500 MG TABLET PO SCH ×2 (11:24→20:30)
[2019-10-27] MEDS: ZINC SULFATE 220 MG CAPSULE PO SCH (11:24)
[2019-10-27] MEDS: AZITHROMYCIN 500 MG in DEXTROSE 5%-WATER 250 ML IV SCH (11:26)
[2019-10-27] MEDS: CHOLECALCIFEROL (D3) 400 UNIT TABLET PO SCH (11:30)
[2019-10-27] MEDS ORDERED: NORMAL SALINE 250 ML IV PRN ×2 (11:33)
[2019-10-27] MEDS ORDERED: HEPARIN SODIUM,PORCINE/D5W 25,000 UNIT/250 ML RTUINJ IV PRN (11:39)
[2019-10-27] MEDS ORDERED: HEPARIN SOD (PORCINE) 1,000 UNIT/ML 10 ML VIAL IV ONE (11:39)
[2019-10-27] MEDS ORDERED: DEXTROSE 50%-WATER 25 GM/50 ML DISP.SYRIN IV PRN ×2 (11:42)
[2019-10-27] MEDS ORDERED: DEXTROSE 40% GEL 15 GM TUBE PO PRN ×2 (11:42)
[2019-10-27] MEDS ORDERED: GLUCAGON,HUMAN RECOMB 1 MG INJ IM PRN (11:42)
[2019-10-27 11:52] LABS: INTERNATIONAL RATION (INR) 1.06
[2019-10-27 11:53] LABS: PARTIAL THROMBOPLASTIN TIME 36.4 SEC (23.5-35.8)
[2019-10-27] MEDS ORDERED: REMDESIVIR (EUA) 200 MG in NORMAL SALINE 250 ML IV ONE (14:00)
[2019-10-27] MEDS: ALBUTEROL SULFATE 0.083% NEB 2.5 MG/3 ML AMPUL NEB SCH ×2 (14:12→20:33)
[2019-10-27] MEDS ORDERED: HEPARIN SOD (PORCINE) 1,000 UNIT/ML 10 ML VIAL IV PRN (14:41)
[2019-10-27 16:39] LABS: ARTERIAL BLOOD BASE EXCESS -2.1 mmol/L; ARTERIAL BLOOD H2CO3 0.92 mmol/L (1.05-1.35); ARTERIAL BLOOD HCO3 20.9 mmol/L (20-24); ARTERIAL BLOOD O2 SATURATION 91.4 % (94-98); ARTERIAL BLOOD PCO2 30.4 mmHg (35-45); ARTERIAL BLOOD PH 7.46 (7.35-7.45); ARTERIAL BLOOD PO2 56.9 mmHg (80-100); ARTERIAL BLOOD TOTAL CO2 21.9 mmol/L (21-25)
[2019-10-27 16:58] LABS: ARTERIAL BLOOD FIO2 6L
--- NOTE | 2019-10-27 17:20 | PDOC PROGRESS REPORT ---
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 Patient was seen on morning rounds. She is found resting in bed, comfortably, on supplemental oxygen via nasal cannula at 6 L/min. Oxygen was briefly turned down to 2 L/min with immediate desaturation to 82% requiring prolonged recovery time upon returning oxygen to 6 L/min. Patient states that she is willing to trial CPAP. She does admit to pleurisy; specifically with cough. She does have a nonproductive cough. We discussed treatment plan of firm to severe, heparin drip, and convalescent serum. Patient confirms interest in all 3. She also reaffirms her FULL CODE STATUS and designates her daughter, Geri Zelaya, as her designated decision maker. Otherwise, she denies fever, chills, body aches, abdominal pain, nausea vomiting and diarrhea. All questions answered to her satisfaction. Separate phone call had with the patient's daughter, Geri Zelaya, this afternoon. Discussed plan of care with nursing. Reason For Visit: COVID 19 PNEUMONIA,ACUTE RESPIRATORY FAILURE WITH Physical Exam Vital Signs: Temp Pulse Resp BP Pulse Ox 97.6 F 67 24 H 121/64 91 L 10/27/19 08:00 10/27/19 08:00 10/27/19 08:00 10/27/19 08:00 10/27/19 08:00 Intake & Output 10/26/19 10/27/19 10/28/19 06:59 06:59 06:59 Intake Total 1000 250 Balance 1000 250 Weight 76.1 kg General appearance: PRESENT: cooperative, mild distress, well-developed, well- nourished, other - acutely ill appearing Head exam: PRESENT: atraumatic, normocephalic Eye exam: PRESENT: conjunctiva pink, EOMI, PERRLA. ABSENT: scleral icterus Mouth exam: PRESENT: dry mucosa, tongue midline Neck exam: ABSENT: carotid bruit, JVD, lymphadenopathy, thyromegaly Respiratory exam: PRESENT: chest wall tenderness - pleurisy, clear to auscultation jadyn, decreased breath sounds - throughout; poor respiratory effort r/t pain, symmetrical, unlabored, other - supplemental O2 via NC. ABSENT: rales, rhonchi, wheezes Cardiovascular exam: PRESENT: RRR. ABSENT: diastolic murmur, rubs, systolic murmur Pulses: PRESENT: normal dorsalis pedis pul Vascular exam: PRESENT: normal capillary refill GI/Abdominal exam: PRESENT: normal bowel sounds, soft. ABSENT: distended, guarding, mass, organolmegaly, rebound, tenderness Rectal exam: PRESENT: deferred Gentrourinary exam: PRESENT: indwelling catheter Extremities exam: PRESENT: full ROM. ABSENT: calf tenderness, clubbing, pedal edema, +1 edema Neurological exam: PRESENT: alert, awake, oriented to person, oriented to place, oriented to time, oriented to situation, CN II-XII grossly intact, other - fatigues. ABSENT: motor sensory deficit Psychiatric exam: PRESENT: appropriate affect, normal mood. ABSENT: homicidal ideation, suicidal ideation Skin exam: PRESENT: dry, intact, warm. ABSENT: cyanosis, rash Results Laboratory Results: 10/27/19 05:55 10/27/19 05:55 10/26/19 10/26/19 10/26/19 19:48 19:48 19:48 WBC 4.3 RBC 4.50 Hgb 11.9 L Hct 36.2 MCV 80 MCH 26.5 L MCHC 33.0 RDW 15.2 H Plt Count 357 Seg Neutrophils % 72.0 VBG pH 7.42 VBG pCO2 36.1 VBG HCO3 23.1 VBG Base Excess -0.9 Sodium 136.9 L Potassium 4.4 Chloride 100 Carbon Dioxide 25 Anion Gap 12 BUN 31 H Creatinine 1.54 H Est GFR ( Amer) 39 L Glucose 81 Calcium 8.6 Ferritin Total Bilirubin AST Alkaline Phosphatase C-Reactive Protein Total Protein Albumin Urine Color Urine Appearance Urine pH Ur Specific [place] Urine Protein Urine Glucose (UA) Urine Ketones Urine Blood Urine Nitrite Ur Leukocyte Esterase Urine WBC (Auto) Urine RBC (Auto) Blood Type Antibody Screen 10/27/19 10/27/19 10/27/19 02:01 05:55 05:55 WBC 2.3 L D RBC 4.25 Hgb 11.4 L Hct 34.2 L MCV 81 MCH 26.8 L MCHC 33.3 RDW 15.2 H Plt Count 337 Seg Neutrophils % VBG pH VBG pCO2 VBG HCO3 VBG Base Excess Sodium 138.2 Potassium 5.0 Chloride 101 Carbon Dioxide 28 Anion Gap 9 BUN 31 H Creatinine 1.28 H Est GFR ( Amer) 48 L Glucose 120 H Calcium 8.4 Ferritin Total Bilirubin AST Alkaline Phosphatase C-Reactive Protein Total Protein Albumin Urine Color TANYA Urine Appearance CLEAR Urine pH 5.0 Ur Specific [place] 1.023 Urine Protein 100 H Urine Glucose (UA) NEGATIVE Urine Ketones NEGATIVE Urine Blood NEGATIVE Urine Nitrite NEGATIVE Ur Leukocyte Esterase NEGATIVE Urine WBC (Auto) 1 Urine RBC (Auto) 0 Blood Type Antibody Screen 10/27/19 10/27/19 10:04 10:04 WBC RBC Hgb Hct MCV MCH MCHC RDW Plt Count Seg Neutrophils % VBG pH VBG pCO2 VBG HCO3 VBG Base Excess Sodium Potassium Chloride Carbon Dioxide Anion Gap BUN Creatinine Est GFR ( Amer) Glucose Calcium Ferritin 154.00 Total Bilirubin 0.7 AST 52 H Alkaline Phosphatase 87 C-Reactive Protein 224.6 H Total Protein 6.9 Albumin 3.7 Urine Color Urine Appearance Urine pH Ur Specific [place] Urine Protein Urine Glucose (UA) Urine Ketones Urine Blood Urine Nitrite Ur Leukocyte Esterase Urine WBC (Auto) Urine RBC (Auto) Blood Type O POSITIVE Antibody Screen NEGATIVE 10/26/19 19:48 Troponin I 0.032 NT-Pro-B Natriuret Pep 266 Impressions: Chest X-Ray 10/26/19 19:34 IMPRESSION: Interval increase in patchy multifocal bilateral airspace disease, suspicious for multifocal pneumonia/viral pneumonitis. copyright 2010 [employer]- All Rights Reserved Assessment and Plan - Diagnosis (1) Pneumonia due to COVID-19 virus Is this a current diagnosis for this admission?: Yes Plan: COVID positive. D-dimer 1.03, ferritin 154, LDH 368, CRP 224 Patient is empirically placed on IV azithromycin; day #2. Start Remdesivir 200 mg x 1 followed by 100 mg daily x4 days. Patient is interested in convalescent serum; 1 unit requested. We will start heparin drip given elevated d-dimer, oxygen requirement, and COVID positive status. Provide supplemental oxygen as needed maintain saturations greater than 89%. Nasal cannula v. CPAP v. HFNC as current clinical status indicates. Scheduled and as needed nebulizer treatments. Continue dexamethasone 4 mg IV every 12. Zinc, vitamin D, vitamin C, and melatonin supplementation. Daily statin therapy. Encourage pulmonary toilet. Isolation precautions. (2) Acute respiratory failure with hypoxia Is this a current diagnosis for this admission?: Yes Plan: Secondary to COVID-19 pneumonia. Management as above. (3) Diabetes mellitus type 2 in nonobese Is this a current diagnosis for this admission?: Yes Plan: Patient is placed on a consistent carb diet. Accu-Cheks before meals and at bedtime with Humalog for sliding scale coverage. Hypoglycemia protocol in place. (4) Aortic stenosis Qualifiers: Cardiac valve disease etiology: etiology unspecified Qualified Code(s): I35.0 - Nonrheumatic aortic (valve) stenosis Is this a current diagnosis for this admission?: Yes Plan: Avoid dramatic fluid shifting. Daily weights, strict I&O's. (5) Bronchial asthma Qualifiers: Asthma severity: mild Asthma persistence: intermittent Asthma complication type: uncomplicated Qualified Code(s): J45.20 - Mild intermittent asthma, uncomplicated Is this a current diagnosis for this admission?: Yes Plan: Supplemental oxygen, steroids, and nebulizer treatments as above. (6) Hyperlipidemia Qualifiers: Hyperlipidemia type: unspecified Qualified Code(s): E78.5 - Hyperlipidemia, unspecified Is this a current diagnosis for this admission?: Yes Plan: Continue home dose Atorvastatin. (7) Hypertension Is this a current diagnosis for this admission?: Yes Plan: Well controlled at present. Not on home medications. IV Hydralazine prn Blood Pressure control. (8) Hypothyroidism Is this a current diagnosis for this admission?: Yes Plan: Continue home dose Synthroid. - Time Time Spent with patient: 35 or more minutes Medications reviewed and adjusted accordingly: Yes Anticipated Discharge Disposition: Undetermined Anticipated Discharge Timeframe: >72 hrs
[2019-10-27] MEDS ORDERED: (PENDING PHARMACY ID) (Fenofibrate [Fenofibrate] 160 MG) PO SCH (18:00)
[2019-10-27] MEDS: INSULIN LISPRO 100 UNIT/ML 3 ML VIAL SUBCUT SCH (20:33)
[2019-10-27] MEDS: FENOFIBRATE NANOCRYSTALLIZED 145 MG TABLET PO SCH (20:34)
[2019-10-27 22:00] LABS: APPEARANCE,URINE CLEAR; BILIRUBIN,URINE NEGATIVE (NEGATIVE); COLOR,URINE YELLOW; GLUCOSE, URINE NEGATIVE (NEGATIVE); KETONES,URINE NEGATIVE (NEGATIVE); LEUKOCYTE ESTERASE,URINE NEGATIVE (NEGATIVE); NITRITE,URINE NEGATIVE (NEGATIVE); PROTEIN,URINE NEGATIVE (NEGATIVE); UROBILINOGEN,URINE NEGATIVE mg/dL (<2.0)
[2019-10-27] MEDS ORDERED: ONDANSETRON HCL INJ/PF 4 MG/2 ML SDV ONE (22:29)
[2019-10-28] MEDS: ALBUTEROL SULFATE 0.083% NEB 2.5 MG/3 ML AMPUL NEB SCH ×4 (02:17→20:35)
[2019-10-28 04:11] LABS: HEMATOCRIT 34.4 % (36.0-47.0); HEMOGLOBIN 11.6 g/dL (12.0-15.5); MEAN CORPUSCULAR HEMOGLOBIN 26.8 pg (27.0-33.4); MEAN CORPUSCULAR HGB CONC 33.8 g/dL (32.0-36.0); MEAN CORPUSCULAR VOLUME 79 fl (80-97); PLATELET COUNT 363 10^3/uL (150-450); RED BLOOD COUNT 4.33 10^6/uL (3.72-5.28)
[2019-10-28 04:16] LABS: WHITE BLOOD COUNT 5.6 10^3/uL (4.0-10.5)
[2019-10-28 04:33] LABS: ANION GAP 8 (5-19); BLOOD UREA NITROGEN 30 mg/dL (7-20); CALCIUM 8.4 mg/dL (8.4-10.2); CARBON DIOXIDE 27 mmol/L (22-30); CHLORIDE 104 mmol/L (98-107); GLUCOSE 95 mg/dL (75-110); POTASSIUM 4.5 mmol/L (3.6-5.0)
[2019-10-28] MEDS: INSULIN LISPRO 100 UNIT/ML 3 ML VIAL SUBCUT SCH ×5 (06:54→22:17)
[2019-10-28] MEDS: ATORVASTATIN CALCIUM 80 MG TABLET PO SCH ×2 (06:56→22:16)
[2019-10-28] MEDS: FAMOTIDINE 20 MG TABLET PO SCH ×3 (06:57→22:16)
[2019-10-28] MEDS: DEXAMETHASONE SOD PHOSPHATE INJ 4 MG/1 ML VIAL IV SCH ×3 (07:13→22:16)
[2019-10-28] MEDS: MONTELUKAST SODIUM 10 MG TABLET PO SCH ×2 (07:13→22:16)
[2019-10-28] MEDS: LEVOTHYROXINE SODIUM 0.112 MG TABLET PO SCH (08:28)
[2019-10-28] MEDS: AZITHROMYCIN 500 MG in DEXTROSE 5%-WATER 250 ML IV SCH (09:29)
[2019-10-28] MEDS: ASCORBIC ACID 500 MG TABLET PO SCH ×2 (09:30→17:27)
[2019-10-28] MEDS: ZINC SULFATE 220 MG CAPSULE PO SCH (09:30)
[2019-10-28] MEDS: PANTOPRAZOLE SODIUM 40 MG TABLET.DR PO SCH (09:30)
[2019-10-28] MEDS: DOCUSATE SODIUM 100 MG CAPSULE PO SCH ×2 (09:30→17:27)
[2019-10-28] MEDS: VENLAFAXINE HCL 37.5 MG CAP.SR.24H PO SCH (09:32)
[2019-10-28] MEDS: CHOLECALCIFEROL (D3) 400 UNIT TABLET PO SCH (09:32)
[2019-10-28] MEDS: REMDESIVIR (EUA) 100 MG in NORMAL SALINE 250 ML IV SCH (11:19)
[2019-10-28] MEDS: ENOXAPARIN SODIUM INJ 40 MG/0.4 ML DISP.SYRIN SUBCUT SCH (13:15)
[2019-10-28] MEDS: FENOFIBRATE NANOCRYSTALLIZED 145 MG TABLET PO SCH (17:27)
--- NOTE | 2019-10-28 19:55 | PDOC PROGRESS REPORT ---
Subjective Progress Note for:: 10/28/19 Subjective:: Feeling okay. No particular concerns. Has been off of BIPAP since last night. Reason For Visit: COVID 19 PNEUMONIA,ACUTE RESPIRATORY FAILURE WITH Physical Exam Vital Signs: Temp Pulse Resp BP Pulse Ox 98.8 F 63 22 H 101/50 L 94 10/28/19 16:00 10/28/19 16:00 10/28/19 16:00 10/28/19 16:00 10/28/19 16:00 Intake & Output 10/27/19 10/28/19 10/29/19 06:59 06:59 06:59 Intake Total 1000 703 750 Output Total 1075 1450 Balance 1000 -372 -700 Weight 76.1 kg 76.8 kg General appearance: PRESENT: no acute distress Eye exam: ABSENT: scleral icterus Mouth exam: PRESENT: dry mucosa Neck exam: ABSENT: JVD Respiratory exam: PRESENT: rhonchi, symmetrical. ABSENT: crackles Cardiovascular exam: PRESENT: RRR, systolic murmur GI/Abdominal exam: PRESENT: distended, normal bowel sounds, soft. ABSENT: tenderness Neurological exam: PRESENT: alert, awake Psychiatric exam: PRESENT: anxious Results Laboratory Results: 10/28/19 03:58 10/28/19 03:58 10/27/19 10/27/19 10/28/19 10:04 20:30 03:58 WBC 5.6 D RBC 4.33 Hgb 11.6 L Hct 34.4 L MCV 79 L MCH 26.8 L MCHC 33.8 RDW 15.0 H Plt Count 363 Sodium Potassium Chloride Carbon Dioxide Anion Gap BUN Creatinine Est GFR ( Amer) Glucose Calcium Urine Color YELLOW Urine Appearance CLEAR Urine pH 5.0 Ur Specific [place] 1.020 Urine Protein NEGATIVE Urine Glucose (UA) NEGATIVE Urine Ketones NEGATIVE Urine Blood MODERATE H Urine Nitrite NEGATIVE Ur Leukocyte Esterase NEGATIVE Urine WBC (Auto) 3 Urine RBC (Auto) 81 Blood Type O POSITIVE Antibody Screen NEGATIVE 10/28/19 03:58 WBC RBC Hgb Hct MCV MCH MCHC RDW Plt Count Sodium 138.8 Potassium 4.5 Chloride 104 Carbon Dioxide 27 Anion Gap 8 BUN 30 H Creatinine 1.07 Est GFR ( Amer) 59 L Glucose 95 Calcium 8.4 Urine Color Urine Appearance Urine pH Ur Specific [place] Urine Protein Urine Glucose (UA) Urine Ketones Urine Blood Urine Nitrite Ur Leukocyte Esterase Urine WBC (Auto) Urine RBC (Auto) Blood Type Antibody Screen 10/26/19 19:48 Troponin I 0.032 NT-Pro-B Natriuret Pep 266 Impressions: Chest X-Ray 10/26/19 19:34 IMPRESSION: Interval increase in patchy multifocal bilateral airspace disease, suspicious for multifocal pneumonia/viral pneumonitis. copyright 2010 [employer]- All Rights Reserved Assessment and Plan - Plan Summary Summary: COVID-19 Pneumonia Acute Hypoxemic Respiratory Failure - D-dimer 1.03, ferritin 154, LDH 368, CRP 224 - Remdesivir 200 mg x 1 followed by 100 mg daily x4 days - convalescent plasma - supplemental oxygen as needed maintain saturations greater than 90%. Nasal cannula v. CPAP v. HFNC as current clinical status indicates. - Scheduled and as needed nebulizer treatments. - dexamethasone 4 mg IV Q12H DM type 2 - carb controlled diet - Accu-Cheks before meals and at bedtime with Humalog for sliding scale coverage. - Hypoglycemia protocol in place. Aortic stenosis - euvolemic currently - Daily weights, strict I&O Constipation - bowel regimen DVT ppx: Lovenox - Time Time Spent with patient: 25-34 minutes Anticipated Discharge Disposition: Home, Self Care Anticipated Discharge Timeframe: within 72 hours
[2019-10-28] MEDS: ONDANSETRON HCL INJ/PF 4 MG/2 ML SDV IV PRN (22:15)
[2019-10-28] MEDS: GUAIFENESIN SYRP 200 MG/10 ML UDC PO PRN (22:37)
[2019-10-29] MEDS: ALBUTEROL SULFATE 0.083% NEB 2.5 MG/3 ML AMPUL NEB SCH ×4 (02:22→21:09)
[2019-10-29] MEDS: LEVOTHYROXINE SODIUM 0.112 MG TABLET PO SCH (06:13)
[2019-10-29 09:18] LABS: ABSOLUTE LYMPHOCYTES (AUTO) 0.5 10^3/uL (0.5-4.7); ABSOLUTE MONOCYTES (AUTO) 0.3 10^3/uL (0.1-1.4); ABSOLUTE NEUT (AUTO) 3.9 10^3/uL (1.7-8.2); BASOPHILS % (AUTO) 0.1 % (0-2); HEMATOCRIT 34.1 % (36.0-47.0); HEMOGLOBIN 11.4 g/dL (12.0-15.5); LYMPHOCYTES % (AUTO) 10.8 % (13-45); MEAN CORPUSCULAR HEMOGLOBIN 26.8 pg (27.0-33.4); MEAN CORPUSCULAR HGB CONC 33.5 g/dL (32.0-36.0); MEAN CORPUSCULAR VOLUME 80 fl (80-97); MONOCYTES % (AUTO) 6.2 % (3-13); PLATELET COUNT 441 10^3/uL (150-450); RED BLOOD COUNT 4.25 10^6/uL (3.72-5.28); SEGMENTED NEUTROPHILS % (AUTO) 82.9 % (42-78); TOTAL CELLS COUNTED % (AUTO) 100 %; WHITE BLOOD COUNT 4.7 10^3/uL (4.0-10.5)
[2019-10-29 09:26] LABS: D-DIMER 1.16 ug/mL (0.00-0.50)
[2019-10-29] MEDS: ZINC SULFATE 220 MG CAPSULE PO SCH (09:28)
[2019-10-29] MEDS: FAMOTIDINE 20 MG TABLET PO SCH ×2 (09:28→22:48)
[2019-10-29] MEDS: DEXAMETHASONE SOD PHOSPHATE INJ 4 MG/1 ML VIAL IV SCH (09:28)
[2019-10-29] MEDS: VENLAFAXINE HCL 37.5 MG CAP.SR.24H PO SCH (09:28)
[2019-10-29] MEDS: DOCUSATE SODIUM 100 MG CAPSULE PO SCH (09:28)
[2019-10-29] MEDS: ASCORBIC ACID 500 MG TABLET PO SCH ×2 (09:28→17:32)
[2019-10-29] MEDS: ENOXAPARIN SODIUM INJ 40 MG/0.4 ML DISP.SYRIN SUBCUT SCH (09:28)
[2019-10-29] MEDS: PANTOPRAZOLE SODIUM 40 MG TABLET.DR PO SCH (09:28)
[2019-10-29] MEDS: CHOLECALCIFEROL (D3) 400 UNIT TABLET PO SCH (09:28)
[2019-10-29 09:42] LABS: ALBUMIN 3.5 g/dL (3.5-5.0); ALKALINE PHOSPHATASE 78 U/L (38-126); ANION GAP 11 (5-19); ASPARTATE AMINO TRANSFERASE 42 U/L (14-36); BILIRUBIN,DIRECT 0.4 mg/dL (0.0-0.4); BILIRUBIN,TOTAL 0.6 mg/dL (0.2-1.3); BLOOD UREA NITROGEN 32 mg/dL (7-20); CALCIUM 8.9 mg/dL (8.4-10.2); CARBON DIOXIDE 27 mmol/L (22-30); CHLORIDE 99 mmol/L (98-107); GLUCOSE 127 mg/dL (75-110); POTASSIUM 5.3 mmol/L (3.6-5.0); TOTAL PROTEIN 6.5 g/dL (6.3-8.2)
[2019-10-29 09:54] LABS: C-REACTIVE PROTEIN 172.5 mg/L (<10.0)
[2019-10-29] MEDS: REMDESIVIR (EUA) 100 MG in NORMAL SALINE 250 ML IV SCH (10:01)
--- NOTE | 2019-10-29 12:09 | PDOC PROGRESS REPORT ---
Subjective Progress Note for:: 10/29/19 Subjective:: She was placed on BIPAP overnight. She is requesting for it to be removed this morning so she can eat breakfast. She denies pain or discomfort. She thinks her breathing is "better." Reason For Visit: COVID 19 PNEUMONIA, ACUTE HYPOXEMIC RESPIRATORY FAILURE Physical Exam Vital Signs: Temp Pulse Resp BP Pulse Ox 97.6 F 68 19 113/54 L 92 10/29/19 08:29 10/29/19 09:04 10/29/19 09:04 10/29/19 08:29 10/29/19 10:43 Intake & Output 10/28/19 10/29/19 10/30/19 06:59 06:59 06:59 Intake Total 703 750 250 Output Total 1075 2050 Balance -372 -1300 250 Weight 76.8 kg 74.3 kg General appearance: PRESENT: no acute distress, hard of hearing Mouth exam: PRESENT: dry mucosa Neck exam: ABSENT: JVD Respiratory exam: PRESENT: rhonchi, tachypnea. ABSENT: crackles Cardiovascular exam: PRESENT: RRR, systolic murmur GI/Abdominal exam: PRESENT: distended, normal bowel sounds, soft. ABSENT: guar ding, rebound, tenderness Extremities exam: PRESENT: +1 edema Neurological exam: PRESENT: alert, altered, awake, oriented to person, oriented to situation. ABSENT: oriented to place, oriented to time Results Laboratory Results: 10/29/19 08:35 10/29/19 08:35 10/29/19 10/29/19 08:35 08:35 WBC 4.7 RBC 4.25 Hgb 11.4 L Hct 34.1 L MCV 80 MCH 26.8 L MCHC 33.5 RDW 15.0 H Plt Count 441 Seg Neutrophils % 82.9 H Sodium 137.2 Potassium 5.3 H Chloride 99 Carbon Dioxide 27 Anion Gap 11 BUN 32 H Creatinine 0.99 Est GFR ( Amer) > 60 Glucose 127 H Calcium 8.9 Magnesium 2.0 Total Bilirubin 0.6 AST 42 H Alkaline Phosphatase 78 C-Reactive Protein 172.5 H Total Protein 6.5 Albumin 3.5 10/26/19 19:48 Troponin I 0.032 NT-Pro-B Natriuret Pep 266 Impressions: Chest X-Ray 10/26/19 19:34 IMPRESSION: Interval increase in patchy multifocal bilateral airspace disease, suspicious for multifocal pneumonia/viral pneumonitis. copyright 2010 [employer]- All Rights Reserved Assessment and Plan - Plan Summary Summary: COVID-19 Pneumonia Acute Hypoxemic Respiratory Failure - D-dimer 1.03-->1.16, ferritin 154, LDH 368, CRP 224 --> 172 - Remdesivir 200 mg x 1 followed by 100 mg daily x4 days - dexamethasone 6 mg daily x10 days - convalescent plasma (day 2 today) - supplemental oxygen as needed maintain saturations greater than 90%. Nasal cannula v. CPAP v. HFNC as current clinical status indicates. Wean as tolerated. - Scheduled and as needed nebulizer treatments. Aortic stenosis - euvolemic currently - Daily weights - strict I&O Constipation - add lactulose (will also help decrease K) Mild Hyperkalemia: unclear etiology. She is not receiving any potassium supplements. Kidney function remains stable. Maybe hemolyzed sample? - lactulose as per above - repeat BMP in AM DVT ppx: Svitlana I attempted to call her daughter, Francine, today, but was not able to reach her and left a VM message. - Time Time Spent with patient: 35 or more minutes Anticipated Discharge Disposition: Home with Home Health Anticipated Discharge Timeframe: within 72 hours
[2019-10-29] MEDS: ONDANSETRON HCL INJ/PF 4 MG/2 ML SDV IV PRN (13:18)
--- NOTE | 2019-10-29 16:04 | RADIOLOGY REPORT (SQ) ---
EXAM DESCRIPTION: CHEST SINGLE VIEW IMAGES COMPLETED DATE/TIME: 10/29/2019 1:44 pm REASON FOR STUDY: oxygen needs COMPARISON: 10/26/2019 NUMBER OF VIEWS: One view. TECHNIQUE: Single frontal radiographic image of the chest acquired. LIMITATIONS: None. FINDINGS: LUNGS AND PLEURA: Bilateral lower lobe airspace disease, left greater than right not signi ficantly changed. MEDIASTINUM AND HEART: Stable heart size and mediastinal structures. BONY STRUCTURES: No acute findings. HARDWARE: None. OTHER: No other significant finding. IMPRESSION: Bilateral pneumonia. No significant change. TECHNICAL DOCUMENTATION: JOB ID: [id number] Reading location - IP/workstation name: [email or web address]
[2019-10-29] MEDS: LACTULOSE SYRUP 20 GM/30 ML UDCUP PO SCH (17:00)
[2019-10-29] MEDS: FENOFIBRATE NANOCRYSTALLIZED 145 MG TABLET PO SCH (17:32)
[2019-10-29] MEDS: NORMAL SALINE 1000 ML 1,000 ML IV PRN (18:31)
[2019-10-29] MEDS: MONTELUKAST SODIUM 10 MG TABLET PO SCH (22:48)
[2019-10-29] MEDS: ATORVASTATIN CALCIUM 80 MG TABLET PO SCH (22:48)
[2019-10-30] MEDS: ALBUTEROL SULFATE 0.083% NEB 2.5 MG/3 ML AMPUL NEB SCH ×4 (02:14→19:43)
[2019-10-30] MEDS: LEVOTHYROXINE SODIUM 0.112 MG TABLET PO SCH (05:32)
[2019-10-30] MEDS: GUAIFENESIN SYRP 200 MG/10 ML UDC PO PRN (05:33)
[2019-10-30 06:06] LABS: BLOOD UREA NITROGEN 28 mg/dL (7-20); CALCIUM 8.9 mg/dL (8.4-10.2); CARBON DIOXIDE 25 mmol/L (22-30); CHLORIDE 102 mmol/L (98-107); GLUCOSE 82 mg/dL (75-110)
[2019-10-30 06:17] LABS: ANION GAP 11 (5-19)
[2019-10-30 06:21] LABS: POTASSIUM 4.3 mmol/L (3.6-5.0)
[2019-10-30] MEDS: LACTULOSE SYRUP 20 GM/30 ML UDCUP PO SCH (10:50)
[2019-10-30] MEDS: PANTOPRAZOLE SODIUM 40 MG TABLET.DR PO SCH (10:51)
[2019-10-30] MEDS: VENLAFAXINE HCL 37.5 MG CAP.SR.24H PO SCH (10:51)
[2019-10-30] MEDS: DEXAMETHASONE SOD PHOSPHATE INJ 4 MG/1 ML VIAL IV SCH (10:51)
[2019-10-30] MEDS: FAMOTIDINE 20 MG TABLET PO SCH ×2 (10:51→21:01)
[2019-10-30] MEDS: CHOLECALCIFEROL (D3) 400 UNIT TABLET PO SCH (10:51)
[2019-10-30] MEDS: ZINC SULFATE 220 MG CAPSULE PO SCH (10:51)
[2019-10-30] MEDS: ENOXAPARIN SODIUM INJ 40 MG/0.4 ML DISP.SYRIN SUBCUT SCH (10:51)
[2019-10-30] MEDS: ASCORBIC ACID 500 MG TABLET PO SCH ×2 (10:51→18:07)
[2019-10-30] MEDS: REMDESIVIR (EUA) 100 MG in NORMAL SALINE 250 ML IV SCH (10:53)
[2019-10-30] MEDS: FENOFIBRATE NANOCRYSTALLIZED 145 MG TABLET PO SCH (18:08)
--- NOTE | 2019-10-30 19:47 | PDOC PROGRESS REPORT ---
Subjective Progress Note for:: 10/30/19 Subjective:: She continues to endorse SOB. She was on BIPAP overnight, now on 6L O2. Reason For Visit: COVID 19 PNEUMONIA,ACUTE RESPIRATORY FAILURE WITH Physical Exam Vital Signs: Temp Pulse Resp BP Pulse Ox 98.9 F 93 17 123/61 92 10/30/19 15:35 10/30/19 15:35 10/30/19 15:35 10/30/19 15:35 10/30/19 15:35 Intake & Output 10/29/19 10/30/19 10/31/19 06:59 06:59 06:59 Intake Total 750 1615 1061 Output Total 2050 1450 360 Balance -1300 165 701 Weight 74.3 kg 76.5 kg General appearance: PRESENT: no acute distress Mouth exam: PRESENT: dry mucosa Neck exam: ABSENT: JVD Respiratory exam: PRESENT: rales, rhonchi, tachypnea Cardiovascular exam: PRESENT: RRR, systolic murmur GI/Abdominal exam: PRESENT: normal bowel sounds, soft. ABSENT: tenderness Extremities exam: PRESENT: pedal edema Neurological exam: PRESENT: alert, awake, oriented to person, oriented to place. ABSENT: oriented to time Psychiatric exam: PRESENT: anxious. ABSENT: agitated Results Laboratory Results: 10/29/19 08:35 10/30/19 05:23 10/30/19 10/30/19 05:23 10:07 Sodium 138.1 Potassium 4.3 D Chloride 102 Carbon Dioxide 25 Anion Gap 11 BUN 28 H Creatinine 0.91 Est GFR ( Amer) > 60 Glucose 82 Calcium 8.9 Blood Type O POSITIVE 10/26/19 19:48 Troponin I 0.032 NT-Pro-B Natriuret Pep 266 Impressions: Chest X-Ray 10/29/19 00:00 IMPRESSION: Bilateral pneumonia. No significant change. Assessment and Plan - Plan Summary Summary: COVID-19 Pneumonia Acute Hypoxemic Respiratory Failure - D-dimer 1.03-->1.16, ferritin 154, LDH 368, CRP 224 --> 172 - Remdesivir 200 mg x 1 followed by 100 mg daily x4 days - dexamethasone 6 mg daily x10 days - convalescent plasma (day #3 today) - supplemental oxygen as needed maintain saturations greater than 90%. Nasal cannula v. CPAP v. HFNC as current clinical status indicates. Wean as tolerated. - Scheduled and as needed nebulizer treatments. Aortic stenosis - euvolemic currently - Daily weights - strict I&O Constipation - add lactulose (will also help decrease K) - miralax BID DVT ppx: Lovenox - Time Time Spent with patient: 35 or more minutes Anticipated Discharge Disposition: [facility] Facility Anticipated Discharge Timeframe: within 72 hours
[2019-10-30] MEDS: POLYETHYLENE GLYCOL 3350 POWDER 17 GM/1 PACKET PO SCH (20:59)
[2019-10-30] MEDS: MONTELUKAST SODIUM 10 MG TABLET PO SCH (21:01)
[2019-10-30] MEDS: ATORVASTATIN CALCIUM 80 MG TABLET PO SCH (22:02)
[2019-10-30] MEDS: ONDANSETRON HCL INJ/PF 4 MG/2 ML SDV IV PRN (23:41)
[2019-10-31] MEDS: NORMAL SALINE 1000 ML 1,000 ML IV PRN ×2 (00:40→18:23)
[2019-10-31] MEDS: ALBUTEROL SULFATE 0.083% NEB 2.5 MG/3 ML AMPUL NEB SCH ×4 (02:09→20:54)
[2019-10-31] MEDS: LEVOTHYROXINE SODIUM 0.112 MG TABLET PO SCH (05:38)
[2019-10-31 06:44] LABS: ABSOLUTE LYMPHOCYTES (AUTO) 0.8 10^3/uL (0.5-4.7); ABSOLUTE MONOCYTES (AUTO) 0.4 10^3/uL (0.1-1.4); ABSOLUTE NEUT (AUTO) 6.8 10^3/uL (1.7-8.2); BASOPHILS % (AUTO) 0.2 % (0-2); EOSINOPHILS % (AUTO) 0.3 % (0-6); HEMATOCRIT 33.6 % (36.0-47.0); LYMPHOCYTES % (AUTO) 10.4 % (13-45); MEAN CORPUSCULAR HEMOGLOBIN 26.1 pg (27.0-33.4); MEAN CORPUSCULAR HGB CONC 32.8 g/dL (32.0-36.0); MEAN CORPUSCULAR VOLUME 80 fl (80-97); MONOCYTES % (AUTO) 5.3 % (3-13); PLATELET COUNT 501 10^3/uL (150-450); RED BLOOD COUNT 4.22 10^6/uL (3.72-5.28); RED CELL DISTRIBUTION WIDTH 14.9 % (11.5-14.0); SEGMENTED NEUTROPHILS % (AUTO) 83.8 % (42-78); TOTAL CELLS COUNTED % (AUTO) 100 %; WHITE BLOOD COUNT 8.1 10^3/uL (4.0-10.5)
[2019-10-31 07:21] LABS: ANION GAP 9 (5-19); BLOOD UREA NITROGEN 24 mg/dL (7-20); CALCIUM 8.6 mg/dL (8.4-10.2); CARBON DIOXIDE 24 mmol/L (22-30); CHLORIDE 104 mmol/L (98-107); GLUCOSE 108 mg/dL (75-110); POTASSIUM 4.6 mmol/L (3.6-5.0)
[2019-10-31 07:34] LABS: C-REACTIVE PROTEIN 199.5 mg/L (<10.0)
[2019-10-31] MEDS: PANTOPRAZOLE SODIUM 40 MG TABLET.DR PO SCH (10:37)
[2019-10-31] MEDS: ZINC SULFATE 220 MG CAPSULE PO SCH (10:38)
[2019-10-31] MEDS: ASCORBIC ACID 500 MG TABLET PO SCH ×2 (10:38→17:21)
[2019-10-31] MEDS: VENLAFAXINE HCL 37.5 MG CAP.SR.24H PO SCH (10:43)
[2019-10-31] MEDS: FAMOTIDINE 20 MG TABLET PO SCH ×2 (10:43→21:20)
[2019-10-31] MEDS: ENOXAPARIN SODIUM INJ 40 MG/0.4 ML DISP.SYRIN SUBCUT SCH (10:43)
[2019-10-31] MEDS: CHOLECALCIFEROL (D3) 400 UNIT TABLET PO SCH (10:43)
[2019-10-31] MEDS: DEXAMETHASONE SOD PHOSPHATE INJ 4 MG/1 ML VIAL IV SCH (10:44)
[2019-10-31] MEDS: REMDESIVIR (EUA) 100 MG in NORMAL SALINE 250 ML IV SCH (10:47)
[2019-10-31] MEDS: POLYETHYLENE GLYCOL 3350 POWDER 17 GM/1 PACKET PO SCH ×2 (10:57→17:27)
[2019-10-31] MEDS: LACTULOSE SYRUP 20 GM/30 ML UDCUP PO SCH (10:58)
--- NOTE | 2019-10-31 14:52 | PDOC PROGRESS REPORT ---
Subjective Progress Note for:: 10/31/19 Subjective:: She tells me that she is "tired." Says her breathing is the same. Had a BM yesterday. Reason For Visit: COVID 19 PNEUMONIA,ACUTE RESPIRATORY FAILURE WITH HYPOXEMIA Physical Exam Vital Signs: Temp Pulse Resp BP Pulse Ox 97.7 F 97 16 127/58 H 91 L 10/31/19 04:08 10/31/19 13:33 10/31/19 13:33 10/31/19 04:08 10/31/19 13:33 Intake & Output 10/30/19 10/31/19 11/01/19 06:59 06:59 06:59 Intake Total 1615 2511 Output Total 1450 1360 Balance 165 1151 Weight 76.5 kg 77 kg General appearance: PRESENT: mild distress Mouth exam: PRESENT: dry mucosa Neck exam: ABSENT: JVD Respiratory exam: PRESENT: accessory muscle use, rales, rhonchi, tachypnea. ABSENT: crackles Cardiovascular exam: PRESENT: RRR, +S1 GI/Abdominal exam: PRESENT: normal bowel sounds, soft. ABSENT: tenderness Neurological exam: PRESENT: alert, awake, oriented to person, oriented to place, oriented to situation. ABSENT: oriented to time Psychiatric exam: PRESENT: anxious Results Laboratory Results: 10/31/19 06:30 10/31/19 06:30 10/31/19 10/31/19 06:30 06:30 WBC 8.1 RBC 4.22 Hgb 11.0 L Hct 33.6 L MCV 80 MCH 26.1 L MCHC 32.8 RDW 14.9 H Plt Count 501 H Seg Neutrophils % 83.8 H Sodium 136.9 L Potassium 4.6 Chloride 104 Carbon Dioxide 24 Anion Gap 9 BUN 24 H Creatinine 0.92 Est GFR ( Amer) > 60 Glucose 108 Calcium 8.6 Magnesium 1.8 C-Reactive Protein 199.5 H 10/26/19 19:48 Troponin I 0.032 NT-Pro-B Natriuret Pep 266 Impressions: Chest X-Ray 10/29/19 00:00 IMPRESSION: Bilateral pneumonia. No significant change. Assessment and Plan - Plan Summary Summary: Acute Hypoxemic Respiratory Failure due to COVID-19 Pneumonia: I am concerned for her lack of improvement over the last 5 days. She is still spending most of her day on BIPAP despite maximal medical therapy, and she is clearly starting to tire out. Family has changed code status to DNR/DNI. D-dimer and CRP are increa sing. - Remdesivir 200 mg x 1 followed by 100 mg daily x4 days - dexamethasone 6 mg daily x10 days - s/p convalescent plasma x3 doses without much improvement noted - supplemental oxygen as needed maintain saturations greater than 90%. Nasal cannula vs HFNC vs BIPAP as current clinical status indicates. Wean as tolerated. - Scheduled and as needed nebulizer treatments. Aortic stenosis: euvolemic currently - strict I&O Constipation: resolved with bowel regimen CONNIE c/b Hyperkalemia: resolved with IVF DVT ppx: Lovenox Code Status: DNR/DNI - Time Time Spent with patient: 35 or more minutes Anticipated Discharge Disposition: Home, Self Care Anticipated Discharge Timeframe: within 72 hours
--- NOTE | 2019-10-31 14:57 | ADVANCED CARE ---
- Diagnosis (1) Acute respiratory failure with hypoxia Diagnosis Current: Yes Resuscitation Status: Do Not Resuscitate Discussion: I have spoken with patient's daughter, Francine Zelaya, on several occasions to share my concerns about Ms. Yanez lack of improvement with maximal medical therapy. Francine and her siblings held a family meeting to discuss Ms. Yanez's clinical course. 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 Ms. Yanez has previously told her family that her main goal is to maintain her independence and have a good quality of life. With that in mind, her children have decided to change her code status to DNR/DNI at this point, which is in line with her previously stated goals of care. Time Spent: >30 minutes
[2019-10-31] MEDS: FENOFIBRATE NANOCRYSTALLIZED 145 MG TABLET PO SCH (17:21)
[2019-10-31] MEDS: ONDANSETRON HCL INJ/PF 4 MG/2 ML SDV IV PRN ×2 (18:30→22:32)
[2019-10-31] MEDS: ATORVASTATIN CALCIUM 80 MG TABLET PO SCH (21:20)
[2019-10-31] MEDS: MONTELUKAST SODIUM 10 MG TABLET PO SCH (21:20)
[2019-11-01] MEDS: ALBUTEROL SULFATE 0.083% NEB 2.5 MG/3 ML AMPUL NEB SCH ×4 (02:52→20:21)
[2019-11-01] MEDS: LEVOTHYROXINE SODIUM 0.112 MG TABLET PO SCH (05:48)
[2019-11-01] MEDS: NORMAL SALINE 1000 ML 1,000 ML IV PRN (07:43)
[2019-11-01] MEDS: VENLAFAXINE HCL 37.5 MG CAP.SR.24H PO SCH (10:56)
[2019-11-01] MEDS: ASCORBIC ACID 500 MG TABLET PO SCH ×2 (10:56→17:49)
[2019-11-01] MEDS: DEXAMETHASONE SOD PHOSPHATE INJ 4 MG/1 ML VIAL IV SCH (10:56)
[2019-11-01] MEDS: FAMOTIDINE 20 MG TABLET PO SCH ×2 (10:56→21:13)
[2019-11-01] MEDS: POLYETHYLENE GLYCOL 3350 POWDER 17 GM/1 PACKET PO SCH ×2 (10:56→17:49)
[2019-11-01] MEDS: CHOLECALCIFEROL (D3) 400 UNIT TABLET PO SCH (10:56)
[2019-11-01] MEDS: PANTOPRAZOLE SODIUM 40 MG TABLET.DR PO SCH (10:56)
[2019-11-01] MEDS: LACTULOSE SYRUP 20 GM/30 ML UDCUP PO SCH (10:56)
[2019-11-01] MEDS: ZINC SULFATE 220 MG CAPSULE PO SCH (10:56)
[2019-11-01] MEDS: ENOXAPARIN SODIUM INJ 40 MG/0.4 ML DISP.SYRIN SUBCUT SCH (10:57)
--- NOTE | 2019-11-01 15:30 | PDOC PROGRESS REPORT ---
Subjective Progress Note for:: 11/01/19 Subjective:: She is feeling tired and worn out. She notes that she is thirsty, but can't tolerate being off BIPAP/NRB. She was on BIPAP overnight at 75% O2 and has recently been placed on NRB. Reason For Visit: COVID 19 PNEUMONIA,ACUTE RESPIRATORY FAILURE WITH Physical Exam Vital Signs: Temp Pulse Resp BP Pulse Ox 97.8 F 90 16 124/58 L 91 L 11/01/19 13:03 11/01/19 14:10 11/01/19 14:10 11/01/19 13:03 11/01/19 14:10 Intake & Output 10/31/19 11/01/19 11/02/19 06:59 06:59 06:59 Intake Total 2511 1780 Output Total 1360 1650 Balance 1151 130 Weight 77 kg 77.9 kg General appearance: PRESENT: mild distress Mouth exam: PRESENT: dry mucosa Neck exam: ABSENT: JVD Respiratory exam: PRESENT: rales, rhonchi, tachypnea Cardiovascular exam: PRESENT: RRR GI/Abdominal exam: PRESENT: normal bowel sounds, soft Extremities exam: PRESENT: +1 edema Musculoskeletal exam: PRESENT: normal inspection Neurological exam: PRESENT: alert, awake, oriented to person, oriented to place, oriented to situation. ABSENT: oriented to time Psychiatric exam: PRESENT: anxious Results Laboratory Results: 10/31/19 06:30 10/31/19 06:30 10/26/19 20:50 Blood Blood Culture - Final NO GROWTH IN 5 DAYS 10/26/19 19:48 Blood Blood Culture - Final NO GROWTH IN 5 DAYS 10/26/19 19:48 Troponin I 0.032 NT-Pro-B Natriuret Pep 266 Impressions: Chest X-Ray 10/29/19 00:00 IMPRESSION: Bilateral pneumonia. No significant change. Assessment and Plan - Diagnosis (1) Acute respiratory failure with hypoxia Is this a current diagnosis for this admission?: Yes (2) Pneumonia due to COVID-19 virus Is this a current diagnosis for this admission?: Yes (3) Diabetes mellitus type 2 in nonobese Is this a current diagnosis for this admission?: Yes - Plan Summary Summary: Acute Hypoxemic Respiratory Failure due to COVID-19 Pneumonia: I am concerned for her lack of improvement over the last 6 days. She is still spending most of her day on BIPAP despite maximal medical therapy, and she is starting to tire out. Family has changed code status to DNR/DNI. D-dimer and CRP are increasing. - Remdesivir 200 mg x 1 followed by 100 mg daily x4 days - dexamethasone 6 mg daily x10 days - s/p convalescent plasma x3 doses without much improvement noted - supplemental oxygen as needed to maintain saturations greater than 90%. Nasal cannula vs HFNC vs BIPAP as current clinical status indicates. Wean as tolerated. - Scheduled and as needed nebulizer treatments. Aortic stenosis: euvolemic currently - strict I&O Constipation: resolved with bowel regimen CONNIE c/b Hyperkalemia: resolved with IVF DVT ppx: Lovenox Code Status: DNR/DNI - Time Time Spent with patient: 35 or more minutes Anticipated Discharge Disposition: Long-Term Facility Anticipated Discharge Timeframe: within 72 hours
[2019-11-01] MEDS: FENOFIBRATE NANOCRYSTALLIZED 145 MG TABLET PO SCH (17:49)
[2019-11-01] MEDS: ONDANSETRON HCL INJ/PF 4 MG/2 ML SDV IV PRN (20:37)
[2019-11-01] MEDS: MONTELUKAST SODIUM 10 MG TABLET PO SCH (21:13)
[2019-11-01] MEDS: ATORVASTATIN CALCIUM 80 MG TABLET PO SCH (21:13)
[2019-11-02] MEDS: ALBUTEROL SULFATE 0.083% NEB 2.5 MG/3 ML AMPUL NEB SCH ×4 (02:36→20:49)
[2019-11-02] MEDS: LEVOTHYROXINE SODIUM 0.112 MG TABLET PO SCH (06:02)
[2019-11-02] MEDS: ONDANSETRON HCL INJ/PF 4 MG/2 ML SDV IV PRN ×2 (09:49→18:29)
[2019-11-02] MEDS: ZINC SULFATE 220 MG CAPSULE PO SCH (09:49)
[2019-11-02] MEDS: ASCORBIC ACID 500 MG TABLET PO SCH ×2 (09:49→17:32)
[2019-11-02] MEDS: CHOLECALCIFEROL (D3) 400 UNIT TABLET PO SCH (09:49)
[2019-11-02] MEDS: POLYETHYLENE GLYCOL 3350 POWDER 17 GM/1 PACKET PO SCH ×2 (09:49→17:32)
[2019-11-02] MEDS: PANTOPRAZOLE SODIUM 40 MG TABLET.DR PO SCH (09:50)
[2019-11-02] MEDS: DEXAMETHASONE SOD PHOSPHATE INJ 4 MG/1 ML VIAL IV SCH (09:50)
[2019-11-02] MEDS: LACTULOSE SYRUP 20 GM/30 ML UDCUP PO SCH (09:50)
[2019-11-02] MEDS: FAMOTIDINE 20 MG TABLET PO SCH ×2 (09:50→22:03)
[2019-11-02] MEDS: VENLAFAXINE HCL 37.5 MG CAP.SR.24H PO SCH (09:50)
[2019-11-02] MEDS: ENOXAPARIN SODIUM INJ 40 MG/0.4 ML DISP.SYRIN SUBCUT SCH (09:50)
--- NOTE | 2019-11-02 14:59 | PDOC PROGRESS REPORT ---
Subjective Progress Note for:: 11/02/19 Subjective:: She tells me that she is "tired." She is dyspnic with minimal exertion, even talking. Reason For Visit: COVID 19 PNEUMONIA,ACUTE RESPIRATORY FAILURE WITH Physical Exam Vital Signs: Temp Pulse Resp BP Pulse Ox 98.4 F 80 18 126/66 H 93 11/02/19 08:29 11/02/19 13:20 11/02/19 13:20 11/02/19 08:29 11/02/19 13:20 Intake & Output 11/01/19 11/02/19 11/03/19 06:59 06:59 06:59 Intake Total 1780 1897 Output Total 1650 2100 Balance 130 -203 Weight 77.9 kg 76.5 kg General appearance: PRESENT: other - moderate distress due to SAGE with speaking, tachypnea Eye exam: ABSENT: scleral icterus Mouth exam: PRESENT: dry mucosa Throat exam: ABSENT: post pharyngeal erythema Neck exam: ABSENT: JVD Respiratory exam: PRESENT: rales, rhonchi, tachypnea. ABSENT: crackles, stridor, unlabored Cardiovascular exam: PRESENT: RRR, systolic murmur GI/Abdominal exam: PRESENT: normal bowel sounds, soft. ABSENT: tenderness Extremities exam: ABSENT: pedal edema Neurological exam: PRESENT: alert, awake, oriented to person, oriented to place, oriented to situation Psychiatric exam: PRESENT: anxious Skin exam: ABSENT: rash Results Laboratory Results: 10/31/19 06:30 10/31/19 06:30 10/26/19 19:48 Troponin I 0.032 NT-Pro-B Natriuret Pep 266 Impressions: Chest X-Ray 10/29/19 00:00 IMPRESSION: Bilateral pneumonia. No significant change. Assessment and Plan - Diagnosis (1) Acute respiratory failure with hypoxia Is this a current diagnosis for this admission?: Yes (2) Pneumonia due to COVID-19 virus Is this a current diagnosis for this admission?: Yes - Plan Summary Summary: Acute Hypoxemic Respiratory Failure due to COVID-19 Pneumonia: I am concerned for her lack of improvement over the last week. She is still spending most of her day between BIPAP and high flow, despite maximal medical therapy, and she is starting to tire out. Family has changed code status to DNR/DNI. We have had multiple extensive goals of care conversations, and they understand that she is not doing well, but would like to continue the course. The patient herself has expressed desire for NO intubation. D-dimer and CRP are increasing. - repeat labs - continue dexamethasone 6 mg daily x10 days - completed course of Remdesivir - received convalescent plasma x3 doses without any improvement - supplemental oxygen as needed to maintain saturations greater than 90%. Nasal cannula vs HFNC vs BIPAP as current clinical status indicates. Wean as tolerated. - Scheduled and as needed nebulizer treatments. Aortic stenosis: euvolemic currently. She is at high risk for cardiac complications with fluid shifts. Monitor strict I&O. She is not currently on IVF but may need to consider starting if oral intake decreases. Continuous telemetry. Constipation: resolved with bowel regimen. CONNIE c/b Hyperkalemia: resolved with IVF. DVT ppx: Lovenox Code Status: DNR/DNI - Time Time Spent with patient: 35 or more minutes Anticipated Discharge Disposition: Care Home Facility Anticipated Discharge Timeframe: within 72 hours
[2019-11-02 16:03] LABS: INTERNATIONAL RATION (INR) 1.23; PROTHROMBIN TIME 15.7 SEC (11.4-15.4)
[2019-11-02 16:04] LABS: FIBRINOGEN 636 mg/dL (209-497); PARTIAL THROMBOPLASTIN TIME 36.4 SEC (23.5-35.8)
[2019-11-02 16:05] LABS: HEMATOCRIT 31.8 % (36.0-47.0); HEMOGLOBIN 10.9 g/dL (12.0-15.5); MEAN CORPUSCULAR HEMOGLOBIN 27.3 pg (27.0-33.4); MEAN CORPUSCULAR HGB CONC 34.3 g/dL (32.0-36.0); MEAN CORPUSCULAR VOLUME 80 fl (80-97); PLATELET COUNT 522 10^3/uL (150-450); RED CELL DISTRIBUTION WIDTH 15.1 % (11.5-14.0); WHITE BLOOD COUNT 7.8 10^3/uL (4.0-10.5)
[2019-11-02 16:07] LABS: D-DIMER 3.64 ug/mL (0.00-0.50)
[2019-11-02 16:20] LABS: ALBUMIN 3.1 g/dL (3.5-5.0); ALKALINE PHOSPHATASE 112 U/L (38-126); ANION GAP 9 (5-19); ASPARTATE AMINO TRANSFERASE 40 U/L (14-36); BILIRUBIN,DIRECT 0.4 mg/dL (0.0-0.4); BILIRUBIN,TOTAL 0.7 mg/dL (0.2-1.3); BLOOD UREA NITROGEN 20 mg/dL (7-20); CALCIUM 8.8 mg/dL (8.4-10.2); CARBON DIOXIDE 25 mmol/L (22-30); CHLORIDE 100 mmol/L (98-107); CREATINE KINASE 29 U/L (30-135); GLUCOSE 244 mg/dL (75-110); POTASSIUM 4.8 mmol/L (3.6-5.0); TOTAL PROTEIN 6.2 g/dL (6.3-8.2)
[2019-11-02] MEDS ORDERED: NORMAL SALINE 1000 ML 500 ML IV ONE (16:29)
[2019-11-02 16:52] LABS: C-REACTIVE PROTEIN 158.4 mg/L (<10.0)
[2019-11-02 16:54] LABS: ABSOLUTE LYMPHOCYTES# (MANUAL) 0.2 10^3/uL (0.5-4.7); ABSOLUTE MONOCYTES # (MANUAL) 0.2 10^3/uL (0.1-1.4); ANISOCYTOSIS SLIGHT; BASOPHILS % (MANUAL) 0 % (0-2); EOSINOPHILS % (MANUAL) 0 % (0-6); LYMPHOCYTES % (MANUAL) 3 % (13-45); MONOCYTES % (MANUAL) 3 % (3-13); SEGMENTED NEUTROPHILS % (MAN) 94 % (42-78); TOTAL CELLS COUNTED 100
[2019-11-02 16:55] LABS: PLATELET COMMENT INCREASED; POIKILOCYTOSIS SLIGHT; POLYCHROMASIA SLIGHT
[2019-11-02 16:56] LABS: OVALOCYTES SLIGHT
[2019-11-02] MEDS: FENOFIBRATE NANOCRYSTALLIZED 145 MG TABLET PO SCH (17:32)
[2019-11-02] MEDS: NORMAL SALINE 1000 ML 1,000 ML IV PRN ×2 (18:29→22:06)
[2019-11-02] MEDS: MONTELUKAST SODIUM 10 MG TABLET PO SCH (22:03)
[2019-11-02] MEDS: ATORVASTATIN CALCIUM 80 MG TABLET PO SCH (22:03)
[2019-11-03] MEDS: ALBUTEROL SULFATE 0.083% NEB 2.5 MG/3 ML AMPUL NEB SCH ×4 (02:24→20:21)
[2019-11-03] MEDS: NORMAL SALINE 1000 ML 1,000 ML IV PRN ×3 (05:13→13:47)
[2019-11-03] MEDS: LEVOTHYROXINE SODIUM 0.112 MG TABLET PO SCH (05:14)
[2019-11-03 10:14] LABS: ABSOLUTE EOSINOPHILS # (AUTO) 0.1 10^3/uL (0.0-0.6); ABSOLUTE LYMPHOCYTES (AUTO) 1.4 10^3/uL (0.5-4.7); ABSOLUTE MONOCYTES (AUTO) 0.7 10^3/uL (0.1-1.4); ABSOLUTE NEUT (AUTO) 7.7 10^3/uL (1.7-8.2); BASOPHILS % (AUTO) 0.3 % (0-2); EOSINOPHILS % (AUTO) 1.4 % (0-6); HEMOGLOBIN 11.6 g/dL (12.0-15.5); LYMPHOCYTES % (AUTO) 13.8 % (13-45); MEAN CORPUSCULAR HEMOGLOBIN 26.4 pg (27.0-33.4); MEAN CORPUSCULAR HGB CONC 33.1 g/dL (32.0-36.0); MEAN CORPUSCULAR VOLUME 80 fl (80-97); MONOCYTES % (AUTO) 6.8 % (3-13); PLATELET COUNT 565 10^3/uL (150-450); RED CELL DISTRIBUTION WIDTH 14.8 % (11.5-14.0); SEGMENTED NEUTROPHILS % (AUTO) 77.7 % (42-78); TOTAL CELLS COUNTED % (AUTO) 100 %; WHITE BLOOD COUNT 9.8 10^3/uL (4.0-10.5)
[2019-11-03 10:41] LABS: ALBUMIN 3.4 g/dL (3.5-5.0); ALKALINE PHOSPHATASE 111 U/L (38-126); ANION GAP 10 (5-19); ASPARTATE AMINO TRANSFERASE 33 U/L (14-36); BILIRUBIN,DIRECT 0.4 mg/dL (0.0-0.4); BILIRUBIN,TOTAL 0.8 mg/dL (0.2-1.3); BLOOD UREA NITROGEN 18 mg/dL (7-20); CALCIUM 9.2 mg/dL (8.4-10.2); CARBON DIOXIDE 27 mmol/L (22-30); CHLORIDE 99 mmol/L (98-107); GLUCOSE 86 mg/dL (75-110); TOTAL PROTEIN 6.9 g/dL (6.3-8.2)
[2019-11-03 10:44] LABS: POTASSIUM 3.8 mmol/L (3.6-5.0)
[2019-11-03 10:54] LABS: ARTERIAL BLOOD BASE EXCESS 2.2 mmol/L; ARTERIAL BLOOD H2CO3 0.95 mmol/L (1.05-1.35); ARTERIAL BLOOD HCO3 24.4 mmol/L (20-24); ARTERIAL BLOOD O2 SATURATION 89.8 % (94-98); ARTERIAL BLOOD PCO2 31.4 mmHg (35-45); ARTERIAL BLOOD PH 7.51 (7.35-7.45); ARTERIAL BLOOD TOTAL CO2 25.3 mmol/L (21-25)
[2019-11-03 10:55] LABS: ARTERIAL BLOOD FIO2 75%
[2019-11-03] MEDS ORDERED: MORPHINE SULFATE 10 MG/ML INJ ONE (11:37)
[2019-11-03] MEDS: DEXAMETHASONE SOD PHOSPHATE INJ 4 MG/1 ML VIAL IV SCH (11:50)
[2019-11-03] MEDS: FAMOTIDINE 20 MG TABLET PO SCH (11:51)
[2019-11-03] MEDS: POLYETHYLENE GLYCOL 3350 POWDER 17 GM/1 PACKET PO SCH (11:51)
[2019-11-03] MEDS: ASCORBIC ACID 500 MG TABLET PO SCH (11:51)
[2019-11-03] MEDS: ZINC SULFATE 220 MG CAPSULE PO SCH (11:51)
[2019-11-03] MEDS: VENLAFAXINE HCL 37.5 MG CAP.SR.24H PO SCH (11:51)
[2019-11-03] MEDS: PANTOPRAZOLE SODIUM 40 MG TABLET.DR PO SCH (11:51)
[2019-11-03] MEDS ORDERED: MORPHINE SULFATE 10 MG/ML INJ IV ONE (12:00)
[2019-11-03] MEDS: ENOXAPARIN SODIUM INJ 40 MG/0.4 ML DISP.SYRIN SUBCUT SCH (12:05)
[2019-11-03] MEDS: CHOLECALCIFEROL (D3) 400 UNIT TABLET PO SCH (12:07)
[2019-11-03] MEDS: LACTULOSE SYRUP 20 GM/30 ML UDCUP PO SCH (13:44)
--- NOTE | 2019-11-03 14:05 | ADVANCED CARE ---
- Diagnosis (1) Acute respiratory failure with hypoxia Diagnosis Current: Yes (2) Pneumonia due to COVID-19 virus Diagnosis Current: Yes Resuscitation Status: Comfort Measures Only Discussion: I have had several discussions with Ms. Yanez and her daughter, Francine, today. Ms. Yanez is no longer able to tolerate BIPAP due to aspiration. She is so tired that she is no longer able to protect her airway with NIPPV. She is saturating 85-89% on HFNC at max flow and desaturates further with minimal exertion. Ms. Yanez was very forthright with her family today that she wants to transition to comfort measures, and her family is understanding and respect this decision. They have agreed to pursue comfort measures at this time. Time Spent: >30 minutes
--- NOTE | 2019-11-03 17:28 | PDOC PROGRESS REPORT ---
Subjective Progress Note for:: 11/03/19 Subjective:: Worsening hypoxemia this morning. She was found to be actively aspirating on BIPAP, unable to maintain airway, coughing repeatedly. She was transitioned to HFNC, on which she appears more comfortable, but O2 saturations are 88-89% and she desats with minimal exertion. Reason For Visit: COVID 19 PNEUMONIA,ACUTE RESPIRATORY FAILURE WITH Physical Exam Vital Signs: Temp Pulse Resp BP Pulse Ox 98.6 F 86 18 161/74 H 90 L 11/03/19 09:23 11/03/19 09:23 11/03/19 09:23 11/03/19 09:23 11/03/19 09:23 Intake & Output 11/02/19 11/03/19 11/04/19 06:59 06:59 06:59 Intake Total 1897 2638 Output Total 2100 2100 Balance -203 538 Weight 76.5 kg 78 kg General appearance: PRESENT: severe distress Mouth exam: PRESENT: dry mucosa Neck exam: ABSENT: JVD Respiratory exam: PRESENT: rales, rhonchi, tachypnea Cardiovascular exam: PRESENT: tachycardia GI/Abdominal exam: PRESENT: soft. ABSENT: tenderness Extremities exam: PRESENT: other - pale, cool extremities Neurological exam: PRESENT: altered, awake, other - somnolent Results Laboratory Results: 11/03/19 09:50 11/03/19 09:50 11/02/19 11/02/19 11/02/19 15:43 15:43 15:43 WBC 7.8 RBC 4.00 Hgb 10.9 L Hct 31.8 L MCV 80 MCH 27.3 MCHC 34.3 RDW 15.1 H Plt Count 522 H Seg Neutrophils % Not Reportable Carbonic Acid HCO3/H2CO3 Ratio ABG pH ABG pCO2 ABG pO2 ABG HCO3 ABG O2 Saturation ABG Base Excess FiO2 Sodium 133.9 L Potassium 4.8 Chloride 100 Carbon Dioxide 25 Anion Gap 9 BUN 20 Creatinine 0.95 Est GFR ( Amer) > 60 Glucose 244 H Lactic Acid 2.6 H Calcium 8.8 Magnesium 1.7 Total Bilirubin 0.7 AST 40 H Alkaline Phosphatase 112 C-Reactive Protein 158.4 H Total Protein 6.2 L Albumin 3.1 L 11/02/19 11/03/19 11/03/19 18:30 08:50 09:50 WBC 9.8 RBC 4.40 Hgb 11.6 L Hct 35.0 L MCV 80 MCH 26.4 L MCHC 33.1 RDW 14.8 H Plt Count 565 H Seg Neutrophils % 77.7 Carbonic Acid 0.95 L HCO3/H2CO3 Ratio 25:1 ABG pH 7.51 H ABG pCO2 31.4 L ABG pO2 51.0 L ABG HCO3 24.4 H ABG O2 Saturation 89.8 L ABG Base Excess 2.2 FiO2 75% Sodium Potassium Chloride Carbon Dioxide Anion Gap BUN Creatinine Est GFR ( Amer) Glucose Lactic Acid 2.4 H Calcium Magnesium Total Bilirubin AST Alkaline Phosphatase C-Reactive Protein Total Protein Albumin 11/03/19 11/03/19 09:50 09:50 WBC RBC Hgb Hct MCV MCH MCHC RDW Plt Count Seg Neutrophils % Carbonic Acid HCO3/H2CO3 Ratio ABG pH ABG pCO2 ABG pO2 ABG HCO3 ABG O2 Saturation ABG Base Excess FiO2 Sodium 135.9 L Potassium 3.8 D Chloride 99 Carbon Dioxide 27 Anion Gap 10 BUN 18 Creatinine 0.87 Est GFR ( Amer) > 60 Glucose 86 Lactic Acid 2.2 H Calcium 9.2 Magnesium 1.6 Total Bilirubin 0.8 AST 33 Alkaline Phosphatase 111 C-Reactive Protein 75.0 H Total Protein 6.9 Albumin 3.4 L 10/26/19 11/02/19 19:48 15:43 Creatine Kinase 29 L Troponin I 0.032 NT-Pro-B Natriuret Pep 266 Impressions: Chest X-Ray 10/29/19 00:00 IMPRESSION: Bilateral pneumonia. No significant change. Assessment and Plan - Diagnosis (1) Acute respiratory failure with hypoxia Is this a current diagnosis for this admission?: Yes (2) Pneumonia due to COVID-19 virus Is this a current diagnosis for this admission?: Yes - Plan Summary Summary: Acute Hypoxemic Respiratory Failure due to COVID-19 Pneumonia: Worsening hypoxemia over the last few days, but much worse today. She is very somnolent now, which is new. She was found to be actively aspirating on BIPAP, unable to maintain airway, coughing repeatedly. She was transitioned to HFNC, on which she appears more comfortable, but O2 saturations are 88-89% and she desats with minimal exertion. Goals of care discussed again with family, who have decided to transition to comfort care measures. - stop labs, unnecessary medications and NIPPV - continue dexamethasone 6 mg daily x10 days for comfort - completed course of Remdesivir - received convalescent plasma x3 doses without any improvement - supplemental oxygen via HFNC, on which she appears the most comfortable - morphine PRN pain and breathlessness/air hunger Code Status: DNR/DNI/comfort measures only - Time Time Spent with patient: 35 or more minutes Anticipated Discharge Disposition: Hospice Center Anticipated Discharge Timeframe: within 48 hours
[2019-11-03] MEDS: MORPHINE SULFATE 10 MG/ML INJ IV PRN (20:47)
[2019-11-04] MEDS: ALBUTEROL SULFATE 0.083% NEB 2.5 MG/3 ML AMPUL NEB SCH ×2 (02:01→08:25)
[2019-11-04] MEDS: LEVOTHYROXINE SODIUM 0.112 MG TABLET PO SCH (05:32)
[2019-11-04] MEDS ORDERED: DEXAMETHASONE SOD PHOS INJ 10 MG/1 ML VIAL IV SCH (10:00)
[2019-11-04] MEDS: VENLAFAXINE HCL 37.5 MG CAP.SR.24H PO SCH (11:30)
[2019-11-04] MEDS: MORPHINE SULFATE 10 MG/ML INJ IV PRN ×4 (11:31→21:30)
--- NOTE | 2019-11-04 13:39 | PDOC PROGRESS REPORT ---
Subjective Progress Note for:: 11/04/19 Subjective:: She is somnolent, not able to converse. Breathing appears comfortable. Remains on HFNC for comfort. Reason For Visit: COVID 19 PNEUMONIA, ACUTE HYPOXEMIC RESPIRATORY FAILURE Physical Exam Vital Signs: Temp Pulse Resp BP Pulse Ox 98.1 F 84 18 106/49 L 92 11/04/19 12:11 11/04/19 12:11 11/04/19 12:11 11/04/19 12:11 11/04/19 12:11 Intake & Output 11/03/19 11/04/19 11/05/19 06:59 06:59 06:59 Intake Total 2638 1590 250 Output Total 2100 1750 Balance 538 -160 250 Weight 78 kg 74.7 kg General appearance: PRESENT: no acute distress Head exam: PRESENT: atraumatic Eye exam: ABSENT: scleral icterus Mouth exam: PRESENT: dry mucosa Respiratory exam: ABSENT: tachypnea Cardiovascular exam: PRESENT: tachycardia GI/Abdominal exam: PRESENT: normal bowel sounds Gentrourinary exam: PRESENT: indwelling catheter Extremities exam: ABSENT: pedal edema Musculoskeletal exam: PRESENT: normal inspection Neurological exam: PRESENT: altered Psychiatric exam: ABSENT: agitated, anxious Focused psych exam: ABSENT: restlessness Skin exam: ABSENT: jaundice Results Laboratory Results: 11/03/19 09:50 11/03/19 09:50 10/26/19 11/02/19 19:48 15:43 Creatine Kinase 29 L Troponin I 0.032 NT-Pro-B Natriuret Pep 266 Impressions: Chest X-Ray 10/29/19 00:00 IMPRESSION: Bilateral pneumonia. No significant change. Assessment and Plan - Diagnosis (1) Acute respiratory failure with hypoxia Is this a current diagnosis for this admission?: Yes (2) Pneumonia due to COVID-19 virus Is this a current diagnosis for this admission?: Yes - Plan Summary Summary: Acute Hypoxemic Respiratory Failure due to COVID-19 Pneumonia: with worsening hypoxemia over the last few week. She is very somnolent now. She was found to be actively aspirating on BIPAP, unable to maintain airway, coughing repeatedly. She was transitioned to HFNC, on which she appears more comfortable, but O2 saturations are 70-80s% and she desaturates further with minimal exertion. Goals of care discussed again with family on 11/03/2019 and they decided to transition to comfort care measures at that time. - stop labs, unnecessary medications and NIPPV - dexamethasone 6 mg daily x10 days for comfort - completed course of Remdesivir - received convalescent plasma x3 doses without any improvement - supplemental oxygen via HFNC, on which she appears the most comfortable - morphine PRN pain and breathlessness/air hunger/tachypnea Code Status: DNR/DNI/comfort measures only - Time Time Spent with patient: 25-34 minutes Anticipated Discharge Disposition: Hospice Center Anticipated Discharge Timeframe: within 48 hours
[2019-11-04] MEDS: GUAIFENESIN SYRP 200 MG/10 ML UDC PO PRN (20:22)
[2019-11-04] MEDS: ONDANSETRON HCL INJ/PF 4 MG/2 ML SDV IV PRN (20:24)
[2019-11-05] MEDS: ONDANSETRON HCL INJ/PF 4 MG/2 ML SDV IV PRN ×4 (02:04→19:30)
[2019-11-05] MEDS: MORPHINE SULFATE 10 MG/ML INJ IV PRN ×9 (02:04→23:30)
[2019-11-05 05:47] LABS: ABSOLUTE LYMPHOCYTES (AUTO) 1.2 10^3/uL (0.5-4.7); ABSOLUTE MONOCYTES (AUTO) 0.7 10^3/uL (0.1-1.4); BASOPHILS % (AUTO) 0.3 % (0-2); EOSINOPHILS % (AUTO) 0.3 % (0-6); HEMOGLOBIN 10.6 g/dL (12.0-15.5); LYMPHOCYTES % (AUTO) 13.3 % (13-45); MEAN CORPUSCULAR HEMOGLOBIN 26.5 pg (27.0-33.4); MEAN CORPUSCULAR HGB CONC 33.2 g/dL (32.0-36.0); MEAN CORPUSCULAR VOLUME 80 fl (80-97); MONOCYTES % (AUTO) 7.9 % (3-13); PLATELET COUNT 486 10^3/uL (150-450); RED CELL DISTRIBUTION WIDTH 14.8 % (11.5-14.0); SEGMENTED NEUTROPHILS % (AUTO) 78.2 % (42-78); TOTAL CELLS COUNTED % (AUTO) 100 %
[2019-11-05 06:03] LABS: ANION GAP 9 (5-19); BLOOD UREA NITROGEN 34 mg/dL (7-20); CALCIUM 8.8 mg/dL (8.4-10.2); CARBON DIOXIDE 25 mmol/L (22-30); CHLORIDE 101 mmol/L (98-107); GLUCOSE 117 mg/dL (75-110); POTASSIUM 4.9 mmol/L (3.6-5.0)
[2019-11-05] MEDS: PANTOPRAZOLE SODIUM 40 MG TABLET.DR PO SCH (07:00)
[2019-11-05 08:20] VITALS: BP 123/57
[2019-11-05] MEDS: VENLAFAXINE HCL 37.5 MG CAP.SR.24H PO SCH (09:01)
--- NOTE | 2019-11-05 09:42 | RADIOLOGY REPORT (SQ) ---
EXAM DESCRIPTION: CHEST SINGLE VIEW IMAGES COMPLETED DATE/TIME: 11/05/2019 8:40 am REASON FOR STUDY: updated status COMPARISON: AP view of the chest from 10/29/2019. EXAM PARAMETERS: NUMBER OF VIEWS: One view. TECHNIQUE: An AP view of the chest was obtained. RADIATION DOSE: NA LIMITATIONS: None. FINDINGS: LUNGS AND PLEURA: Increased bilateral basilar predominant pleural and parenchymal opacitie s that partially obscure the contour of the left hemidiaphragm and blunt the costophrenic sulci. The re is no pneumothorax. MEDIASTINUM AND HILAR STRUCTURES: Stable mediastinal and hilar contours. HEART AND VASCULAR STRUCTURES: Stable cardiac silhouette. BONES: No acute findings. HARDWARE: TAVR prosthesis. OTHER: No other finding. IMPRESSION: Increased bilateral basilar predominant pleural and parenchymal opacities. TECHNICAL DOCUMENTATION: JOB ID: [id number] 2010 [employer]- All Rights Reserved Reading location - IP/workstation name: [email or web address]
[2019-11-05] MEDS ORDERED: DEXAMETHASONE SOD PHOS INJ 10 MG/1 ML VIAL IV SCH (10:00)
--- NOTE | 2019-11-05 14:26 | PDOC PROGRESS REPORT ---
Subjective Progress Note for:: 11/05/19 Subjective:: URMILA GALEANO is a 84 year old female who presents the emergency room with acute dyspnea. She admits gradually worsening nonproductive cough, generalized malaise and ague over the last 10 days with the sudden onset of moderate to severe dyspnea today. She was seen here in the ER on 10/20/2019 and a COVID-19 test was done at that time which was positive. Her other symptoms have been accompanied by a decrease in oral intake and associated with a decreased urine output. Her dyspnea is made worse by activity or exertion. She denies admits prior similar episodes associated with her asthma. She has not identified any additional aggravating or ameliorating factors for her dyspnea. In the emergency room she was found to have a multifocal bilateral interstitial pneumonia. She was subsequently admitted to the hospital for further evaluation treatment after initiation of intravenous dexamethasone therapy and supplemental oxygen in the emergency room. 11/05/19. She was seen and examined at bedside today. Upon walking in the door the very first thing she told me was "let me go". When I asked her to clarify what she means, she emphatically told me "let me ". She was awake and alert when these statements were made and she has full decision making capacity. She understands the meaning of her statements. I asked her if she has talked to her family regarding her wishes and she said that she has. She does complain of fatigue. Reason For Visit: COVID 19 PNEUMONIA,ACUTE RESPIRATORY FAILURE WITH Physical Exam Vital Signs: Temp Pulse Resp BP Pulse Ox 97.7 F 61 16 123/57 L 92 11/05/19 08:49 11/05/19 07:52 11/05/19 09:35 11/05/19 07:52 11/05/19 09:35 Intake & Output 11/04/19 11/05/19 11/06/19 06:59 06:59 06:59 Intake Total 1590 350 Output Total 1750 650 Balance -160 -300 Weight 74.7 kg 74.7 kg General appearance: PRESENT: severe distress Head exam: PRESENT: atraumatic, normocephalic Eye exam: PRESENT: EOMI, PERRLA Mouth exam: PRESENT: moist Neck exam: PRESENT: full ROM Respiratory exam: PRESENT: clear to auscultation jadyn, rales, symmetrical, tachypnea Cardiovascular exam: PRESENT: RRR, +S1, +S2 Vascular exam: PRESENT: normal capillary refill GI/Abdominal exam: PRESENT: normal bowel sounds, soft. ABSENT: rebound, tenderness Extremities exam: PRESENT: full ROM Musculoskeletal exam: PRESENT: full ROM Neurological exam: PRESENT: alert, awake, oriented to person, oriented to place, oriented to time, oriented to situation Psychiatric exam: PRESENT: appropriate affect Skin exam: PRESENT: normal color Results Laboratory Results: 11/05/19 04:25 11/05/19 04:25 11/05/19 11/05/19 04:25 04:25 WBC 9.0 RBC 4.00 Hgb 10.6 L Hct 32.0 L MCV 80 MCH 26.5 L MCHC 33.2 RDW 14.8 H Plt Count 486 H Seg Neutrophils % 78.2 H Sodium 135.4 L Potassium 4.9 Chloride 101 Carbon Dioxide 25 Anion Gap 9 BUN 34 H Creatinine 1.06 Est GFR ( Amer) > 60 Glucose 117 H Calcium 8.8 10/26/19 11/02/19 19:48 15:43 Creatine Kinase 29 L Troponin I 0.032 NT-Pro-B Natriuret Pep 266 Impressions: Chest X-Ray 11/05/19 06:00 IMPRESSION: Increased bilateral basilar predominant pleural and parenchymal opacities. Assessment and Plan - Diagnosis (1) Acute hypoxemic respiratory failure due to COVID-19 Is this a current diagnosis for this admission?: Yes Plan: -Worsening hypoxemia over the last few days unresponsive to high flow nasal cannula and BiPAP -Secondary to severe COVID pneumonia - on HFNC 60L 81% FIO2 -She has received from the severe dexamethasone and convalescent plasma but her hypoxemia has progressed despite treatments. -She was transitioned to high flow nasal nasal cannula which she seems to tolerate much better than the BiPAP -Multiple discussions with the daughter regarding her prognosis. Her daughter expressed concern about her mother going into comfort care because she seems to be much more awake and alert with a high flow nasal cannula. -I spoke to the patient herself this morning. She was weak looking she was awake alert and was able to expressed her wishes of dying naturally. She repeatedly said let me go, let me I do not want to suffer anymore. She has full decision-making capacity. He has expressed her wishes and is aware what it means and the consequences. Able to express her choice and decision. -morphine as needed for dyspnea. (2) Pneumonia due to COVID-19 virus Is this a current diagnosis for this admission?: Yes Plan: COVID positive. -has completed Remdesivir, convalescent plasma and dexamethasone - repeat CXR showed progression of infiltrates - comfort care measures. - Plan Summary Summary: Acute Hypoxemic Respiratory Failure due to COVID-19 Pneumonia: with worsening hypoxemia over the last few week. She is very somnolent now. She was found to be actively aspirating on BIPAP, unable to maintain airway, coughing repeatedly. She was transitioned to HFNC, on which she appears more comfortable, but O2 saturations are 70-80s% and she desaturates further with minimal exertion. Goals of care discussed again with family on 11/03/2019 and they decided to transition to comfort care measures at that time. - stop labs, unnecessary medications and NIPPV - dexamethasone 6 mg daily x10 days for comfort - completed course of Remdesivir - received convalescent plasma x3 doses without any improvement - supplemental oxygen via HFNC, on which she appears the most comfortable - morphine PRN pain and breathlessness/air hunger/tachypnea Code Status: DNR/DNI/comfort measures only - Time Time Spent with patient: 25-34 minutes Anticipated Discharge Disposition: to be determined Anticipated Discharge Timeframe: to be determined
[2019-11-05] MEDS: LORAZEPAM INJ 2 MG/1 ML VIAL IV PRN ×3 (16:53→21:30)
--- NOTE | 2019-11-05 20:03 | ADVANCED CARE ---
- Diagnosis (1) Acute hypoxemic respiratory failure due to COVID-19 Diagnosis Current: Yes (2) Pneumonia due to COVID-19 virus Diagnosis Current: Yes Resuscitation Status: Comfort Measures Only Discussion: I spoke to her daughter Sophie over the phone regarding their concern about Ms. Yanez pursuing comfort care. Because she seems to have improved with a high flow nasal cannula and morphine they were concerned that she was not getting her usual medications for her other comorbidities and they are hopeful that this recent improvement in her cognition will mean that she is turning around. They requested that a repeat chest x-ray be ordered and it showed progression of her opacities. I talked to Sophie extensively about what comfort measure means for the patient. I also told her about my discussion with the patient. As soon as I walked in the patient's door the first thing she told me was "let me go". And when I asked her what she means by that she told me "let me " I asked her if she knows what that means and she said yes. During this encounter the patient was weak looking however she was awake alert she is oriented to time place and person she is able to express a choice and was able to explain to me the consequence of her choice. I relayed this sentiment to her daughter. He is worried that her mother might be depressed which I do not think is the case. Admits that she is struggling with her mother's decision which is fully understandable. Talking to her extensively she agreed that comfort care is still the best way to go however she would like a daily update from the provider. Will update her daily about her mother's progress. Care Planning Goals: - continue comfort care measures Document(s) Completed: none Time Spent: >30 minutes spent on the phone discussing her goals of care.
[2019-11-06] MEDS: ONDANSETRON HCL INJ/PF 4 MG/2 ML SDV IV PRN ×4 (01:30→18:38)
[2019-11-06] MEDS: LORAZEPAM INJ 2 MG/1 ML VIAL IV PRN ×5 (01:30→18:38)
[2019-11-06] MEDS: MORPHINE SULFATE 10 MG/ML INJ IV PRN ×7 (01:30→18:38)
[2019-11-06] MEDS: PANTOPRAZOLE SODIUM 40 MG TABLET.DR PO SCH (05:13)
[2019-11-06] MEDS: VENLAFAXINE HCL 37.5 MG CAP.SR.24H PO SCH (09:12)
--- NOTE | 2019-11-06 13:47 | PDOC PROGRESS REPORT ---
Subjective Progress Note for:: 11/06/19 Subjective:: RUMILA GALEANO is a 84 year old female who presents the emergency room with acute dyspnea. She admits gradually worsening nonproductive cough, generalized malaise and ague over the last 10 days with the sudden onset of moderate to severe dyspnea today. She was seen here in the ER on 10/20/2019 and a COVID-19 test was done at that time which was positive. Her other symptoms have been accompanied by a decrease in oral intake and associated with a decreased urine output. Her dyspnea is made worse by activity or exertion. She denies admits prior similar episodes associated with her asthma. She has not identified any additional aggravating or ameliorating factors for her dyspnea. In the emergency room she was found to have a multifocal bilateral interstitial pneumonia. She was subsequently admitted to the hospital for further evaluation treatment after initiation of intravenous dexamethasone therapy and supplemental oxygen in the emergency room. 11/05/19. She was seen and examined at bedside today. Upon walking in the door the very first thing she told me was "let me go". When I asked her to clarify what she means, she emphatically told me "let me ". She was awake and alert when these statements were made and she has full decision making capacity. She understands the meaning of her statements. I asked her if she has talked to her family regarding her wishes and she said that she has. She does complain of fatigue. 11/06/19. She was seen and examined at bedside. She is drowsy and does not really open her eyes, she appears comfortable and not dyspneic or gasping for air. She requested yesterday to have her oxygen support removed. It is very likely that she will pass away Reason For Visit: COVID 19 PNEUMONIA,ACUTE RESPIRATORY FAILURE WITH Physical Exam Vital Signs: Temp Pulse Resp BP Pulse Ox 97.7 F 103 H 16 123/57 L 92 11/05/19 08:49 11/06/19 02:00 11/05/19 16:20 11/05/19 07:52 11/05/19 16:20 Intake & Output 11/05/19 11/06/19 11/07/19 06:59 06:59 06:59 Intake Total 350 260 Output Total 650 750 Balance -300 -490 Weight 74.7 kg Results Laboratory Results: 11/05/19 04:25 11/05/19 04:25 10/26/19 11/02/19 19:48 15:43 Creatine Kinase 29 L Troponin I 0.032 NT-Pro-B Natriuret Pep 266 Impressions: Chest X-Ray 11/05/19 06:00 IMPRESSION: Increased bilateral basilar predominant pleural and parenchymal op acities. Assessment and Plan - Diagnosis (1) Acute hypoxemic respiratory failure due to COVID-19 Is this a current diagnosis for this admission?: Yes (2) Pneumonia due to COVID-19 virus Is this a current diagnosis for this admission?: Yes - Plan Summary Summary: Acute Hypoxemic Respiratory Failure due to COVID-19 Pneumonia: with worsening hypoxemia over the last few week. She is very somnolent now. She was found to be actively aspirating on BIPAP, unable to maintain airway, coughing repeatedly. She was transitioned to HFNC, on which she appears more comfortable, but O2 saturations are 70-80s% and she desaturates further with minimal exertion. Goals of care discussed again with family on 11/03/2019 and they decided to transition to comfort care measures at that time. - stop labs, unnecessary medications and NIPPV - dexamethasone 6 mg daily x10 days for comfort - completed course of Remdesivir - received convalescent plasma x3 doses without any improvement - supplemental oxygen via HFNC, on which she appears the most comfortable - morphine PRN pain and breathlessness/air hunger/tachypnea Code Status: DNR/DNI/comfort measures only
--- NOTE | 2019-11-06 14:02 | PDOC PROGRESS REPORT ---
Subjective Subjective:: URMILA GALEANO is a 84 year old female who presents the emergency room with acute dyspnea. She admits gradually worsening nonproductive cough, generalized malaise and ague over the last 10 days with the sudden onset of moderate to severe dyspnea today. She was seen here in the ER on 10/20/2019 and a COVID-19 test was done at that time which was positive. Her other symptoms have been accompanied by a decrease in oral intake and associated with a decreased urine output. Her dyspnea is made worse by activity or exertion. She denies admits prior similar episodes associated with her asthma. She has not identified any additional aggravating or ameliorating factors for her dyspnea. In the emergency room she was found to have a multifocal bilateral interstitial pneumonia. She was subsequently admitted to the hospital for further evaluation treatment after initiation of intravenous dexamethasone therapy and supplemental oxygen in the emergency room. 11/05/19. She was seen and examined at bedside today. Upon walking in the door the very first thing she told me was "let me go". When I asked her to clarify what she means, she emphatically told me "let me ". She was awake and alert when these statements were made and she has full decision making capacity. She understands the meaning of her statements. I asked her if she has talked to her family regarding her wishes and she said that she has. She does complain of fatigue. 11/06/19. She was seen and examined at bedside. She is drowsy and does not really open her eyes, she appears comfortable and not dyspneic or gasping for air. She requested yesterday to have her oxygen support removed. It is very likely that she will pass away today. I have spoken to her daughter Francine, who was tearful but accepting of her mothers situation. Reason For Visit: COVID 19 PNEUMONIA,ACUTE RESPIRATORY FAILURE WITH Physical Exam Vital Signs: Temp Pulse Resp BP Pulse Ox 97.7 F 103 H 16 123/57 L 92 11/05/19 08:49 11/06/19 02:00 11/05/19 16:20 11/05/19 07:52 11/05/19 16:20 Intake & Output 11/05/19 11/06/19 11/07/19 06:59 06:59 06:59 Intake Total 350 260 0 Output Total 650 750 Balance -300 -490 0 Weight 74.7 kg General appearance: PRESENT: no acute distress Head exam: PRESENT: atraumatic, normocephalic Eye exam: PRESENT: PERRLA Ear exam: PRESENT: normal external ear exam Mouth exam: PRESENT: moist Neck exam: ABSENT: JVD, lymphadenopathy Respiratory exam: PRESENT: rales, symmetrical, unlabored Cardiovascular exam: PRESENT: RRR, +S1, +S2 GI/Abdominal exam: PRESENT: normal bowel sounds, soft. ABSENT: distended Extremities exam: ABSENT: calf tenderness, pedal edema - lethargic Skin exam: PRESENT: normal color Results Laboratory Results: 11/05/19 04:25 11/05/19 04:25 10/26/19 11/02/19 19:48 15:43 Creatine Kinase 29 L Troponin I 0.032 NT-Pro-B Natriuret Pep 266 Impressions: Chest X-Ray 11/05/19 06:00 IMPRESSION: Increased bilateral basilar predominant pleural and parenchymal opacities. Assessment and Plan - Diagnosis (1) Acute hypoxemic respiratory failure due to COVID-19 Is this a current diagnosis for this admission?: Yes Plan: -Worsening hypoxemia over the last few days unresponsive to high flow nasal cannula and BiPAP -Secondary to severe COVID pneumonia - she requested that her oxygen be removed -She has received from the severe dexamethasone and convalescent plasma but her hypoxemia has progressed despite treatments. - she is currently lethargic but comfortable with her breathing. O2sat 70% room air. She is comfort measures and will likely pass today. -morphine as needed for dyspnea. (2) Pneumonia due to COVID-19 virus Is this a current diagnosis for this admission?: Yes Plan: COVID positive. -has completed Remdesivir, convalescent plasma and dexamethasone - repeat CXR showed progression of infiltrates - comfort care measures. - Plan Summary Summary: Acute Hypoxemic Respiratory Failure due to COVID-19 Pneumonia: with worsening hypoxemia over the last few week. She is very somnolent now. She was found to be actively aspirating on BIPAP, unable to maintain airway, coughing repeatedly. She was transitioned to HFNC, on which she appears more comfortable, but O2 saturations are 70-80s% and she desaturates further with minimal exertion. Goals of care discussed again with family on 11/03/2019 and they decided to transition to comfort care measures at that time. - stop labs, unnecessary medications and NIPPV - dexamethasone 6 mg daily x10 days for comfort - completed course of Remdesivir - received convalescent plasma x3 doses without any improvement - supplemental oxygen via HFNC, on which she appears the most comfortable - morphine PRN pain and breathlessness/air hunger/tachypnea Code Status: DNR/DNI/comfort measures only - Time Time Spent with patient: 15-24 minutes Anticipated Discharge Disposition: to be determined Anticipated Discharge Timeframe: to be determined.
--- NOTE | 2019-11-19 18:42 | Death Summary ---
Summary Date : 11/06/19 Time of :: 19:20 Autopsy: No Resuscitation Status: Do Not Resuscitate - Final Diagnosis (1) Acute hypoxemic respiratory failure due to COVID-19 Is this a current diagnosis for this admission?: Yes (2) Pneumonia due to COVID-19 virus Is this a current diagnosis for this admission?: Yes Hospital Course:: URMILA GALEANO is a 84 year old female who presents the emergency room with acute dyspnea. She admits gradually worsening nonproductive cough, generalized malaise and ague over the last 10 days with the sudden onset of moderate to severe dyspnea today. She was seen here in the ER on 10/20/2019 and a COVID-19 test was done at that time which was positive. Her other symptoms have been accompanied by a decrease in oral intake and associated with a decreased urine output. Her dyspnea is made worse by activity or exertion. She denies admits prior similar episodes associated with her asthma. She has not identified any additional aggravating or ameliorating factors for her dyspnea. In the emergency room she was found to have a multifocal bilateral interstitial pneumonia. She was subsequently admitted to the hospital for further evaluation treatment after initiation of intravenous dexamethasone therapy and supplemental oxygen in the emergency room. She received convalescent plasma, dexamethasone and remdesivir. She continued to be hypoxic requiring increased Oxygen support as the days progress. Attending physicians spoke to the patient and her daughters about her worsening shortness of breath. Patient and her family have agreed to change her CODE status to DNR/DNI on 10/31/19. She completed her doses of remdesivir, dexamethasone and 3 doses of convalescent plasma without much improvement with her breathing. Goals of Care were again discussed on 11/02 due to worsening respiratory status and the patient and her family agreed that she would be made comfort care based. Patients medical status continued to deteriorate. She eventually 11/06/19.
== END 2019-11-06 22:01 | DRG 177 ==
LOC: ER 19:30 → EH 21:29 → ICU 10-27 04:50 → 3W 10-29 00:45 → 3N 11-03 17:17
PROVIDERS: ADMIT Emergency Medicine; ATTEND Internal Medicine
PROC: XW033E5 Introduction of Remdesivir Anti-infective into Peripheral Vein, Percutaneous Approach, New Technology Group 5 (ICD-10-PCS; principal; 2019-10-27)
PROC: XW13325 Transfusion of Convalescent Plasma (Nonautologous) into Peripheral Vein, Percutaneous Approach, New Technology Group 5 (ICD-10-PCS; 2019-10-27)
PROC: 5A09457 Assistance with Respiratory Ventilation, 24-96 Consecutive Hours, Continuous Positive Airway Pressure (ICD-10-PCS; 2019-10-27)
PROC: XW13325 Transfusion of Convalescent Plasma (Nonautologous) into Peripheral Vein, Percutaneous Approach, New Technology Group 5 (ICD-10-PCS; 2019-10-29)
PROC: XW13325 Transfusion of Convalescent Plasma (Nonautologous) into Peripheral Vein, Percutaneous Approach, New Technology Group 5 (ICD-10-PCS; 2019-10-30)
DX: U07.1 COVID-19 (principal); J12.89 Other viral pneumonia; J96.01 Acute respiratory failure with hypoxia; I10 Essential (primary) hypertension; J44.9 Chronic obstructive pulmonary disease, unspecified; Z51.5 Encounter for palliative care; E11.9 Type 2 diabetes mellitus without complications; E03.9 Hypothyroidism, unspecified; M19.90 Unspecified osteoarthritis, unspecified site; I25.10 Atherosclerotic heart disease of native coronary artery without angina pectoris; E78.5 Hyperlipidemia, unspecified; J45.20 Mild intermittent asthma, uncomplicated; I35.0 Nonrheumatic aortic (valve) stenosis; K59.00 Constipation, unspecified; E87.5 Hyperkalemia; Z88.6 Allergy status to analgesic agent; Z66 Do not resuscitate; Z88.0 Allergy status to penicillin; Z91.013 Allergy to seafood; Z91.041 Radiographic dye allergy status; I25.2 Old myocardial infarction; Z90.49 Acquired absence of other specified parts of digestive tract; Z98.0 Intestinal bypass and anastomosis status; Z90.710 Acquired absence of both cervix and uterus; Z87.891 Personal history of nicotine dependence; Z79.890 Hormone replacement therapy; Z82.49 Family history of ischemic heart disease and other diseases of the circulatory system; Z79.4 Long term (current) use of insulin; Z79.899 Other long term (current) drug therapy
CPT/HCPCS: 36415; 36430; 36600; 71045; 80048; 80053; 80076; 81001; 82550; 82728; 82803; 82962; 83036; 83605; 83615; 83735; 83880; 84484; 85025; 85027; 85379; 85384; 85610; 85730; 86140; 86850; 86900; 86901; 87040; 93005; 93010; 94640; 94660; 99285; J0456; J1100; J1644; J1650; J2060; J2270; J2405; J3490; J7030; J7050; J7060; J7120; J7613